=== PATIENT | male | born 1940 | race Caucasian/White ===

== ENCOUNTER 2018-04-25 14:54 | Inpatient (IN) | payer MEDICARE ==
--- NOTE | 2018-04-25 16:16 | CT ---
CT WITHOUT CONTRAST: HISTORY: Fall. Trauma. Pain. COMPARISON: None. TECHNIQUE: A noncontrast head CT is performed from the skull base to the skull vertex. FINDINGS: No parenchymal hemorrhage. No extraaxial hematoma. No midline shift. The basilar cisterns are winston nt. Age appropriate atrophy. Malacic change in the right occipital parietal region is noted. Chron ic small vessel ischemic changes of the white matter are identified. Adequate aeration of the sinuses and mastoid air cells. Intact calvarium. IMPRESSION: 1. No acute intracranial process. 2. No intracranial posttraumatic sequelae. POS: [facility]
--- NOTE | 2018-04-25 16:20 | CT ---
CT CERVICAL SPINE WITHOUT CONTRAST: HISTORY: Trauma. Fall. Posttraumatic pain. COMPARISON: None. TECHNIQUE: CT cervical spine is performed without contrast. FINDINGS: No craniocervical dissociation. The odontoid process is intact. Appropriate alignment of the latera l masses of C1 and C2. There is no pathologic fracture. There is a large, 1.5 x 1.8 cm lytic lesion occupying the left half of the C7 vertebral body. Additional smaller lucent foci are noted in the u pper thoracic spine. Refer to separate thoracic spine report for further details. Soft tissue neck structures, upper mediastinum, and lung apices are unremarkable. There are varying degrees of central canal stenosis and foraminal narrowing, on the basis of degenera tive change. Evaluation is limited by technique. IMPRESSION: 1. No cervical spine fracture. 2. Metastatic lesion involving the C7 vertebral body, as well as the upper thoracic vertebra. Refer to separate thoracic spine report for further details. POS: [facility]
--- NOTE | 2018-04-25 16:29 | CT ---
THORACIC SPINE CT NONCONTRAST: INDICATIONS: Post traumatic back pain. Fall. FINDINGS: At the C7 level, there is a large lytic lesion occupying the anterior half of the C7 vertebral body. There is additional multifocal lucency involving the thoracic spine vertebrae, the most dominant of which is located at the T8 vertebral body segment with numerous additional lytic foci, indicative of either a lytic metastatic process versus entities such as multiple myeloma. There is a lytic lesion involving the posterolateral right second rib. There is a punctate cortical lucency involving the po sterior right 11th rib. There are nonspecific patch opacities of the lungs, partially visualized. IMPRESSION: Findings which indicate a diffuse osseous metastatic process versus myeloma. Incidental note of thoracic adenopathy. This may also represent a neoplastic process. POS: [facility]
[2018-04-25 16:33] LABS: Hemoglobin 12.4 g/dL (14.0-18.0); Red Blood Cell (RBC) Count 3.43 mill/uL (4.70-6.10); White Blood Cell (WBC) Count 8.7 thou/uL (4.8-10.8)
[2018-04-25 16:37] LABS: INR-International Normal Ratio 1.2; PTT 29.8 SEC (22.9-36.1); Prothrombin Time 15.6 SEC (12.0-14.7)
[2018-04-25 16:46] LABS: #Lymphocytes 0.9 thou/uL (1.20-3.40); #Monocytes 0.9 thou/uL (0.11-0.59); #Neutrophils 6.9 thou/uL (1.40-6.50); %Basophils 0.1 % (0.0-1.0); %Eosinophils 0.3 % (0.0-10.0); %Monocytes 9.9 % (0.0-10.0); %Neutrophils 79.7 % (42.0-75.0); MDiff Complete? YES; Macrocytosis SLIGHT = 6-15 cells (100X) (0-5/hpf); Mean Corpuscular HGB CONC 33.5 g/dL (32.0-36.0); Mean Corpuscular Hemoglobin 36.1 pg (27.0-31.0); Mean Platelet Volume 10.2 fL (7.4-10.4); Ovalocytes SLIGHT = 2-5 cells (100X) (0-1/hpf); PLT Morphology Comment Appears Decreased; Platelet Count 104 thou/uL (130-400); RBC Distribution Width 13.8 % (11.5-14.5)
--- NOTE | 2018-04-25 16:48 | RAD ---
FRONTAL VIEW CHEST: INDICATIONS: Dyspnea. COMPARISON: 12/10/2013 FINDINGS: There is enlargement of the cardiac silhouette with engorged pulmonary vasculature and bilateral inte rstitial opacification of the perihilar regions. No significant effusion or discrete pneumothorax. Overlying artifacts limit visualization. There is vascular calcification. Stable chronic deformity of the left clavicle. IMPRESSION: Evidence to indicate congestive heart failure. Correlate clinically. Recommend imaging followup to confirm resolution. POS: [facility]
[2018-04-25 16:53] LABS: Anion Gap 14 mmol/L (10-20); BUN (Urea Nitrogen) 32 mg/dL (8.4-25.7); CK (CPK) 252 U/L (30-200); Calc. Creatinine Clearance 0 mL/min (70-130); Carbon Dioxide 26 mmol/L (23-31); Chloride 101 mmol/L (98-107); Estimated GFR-MDRD 25; Glucose 125 mg/dL (83-110); Sodium 137 mmol/L (136-145)
[2018-04-25 16:57] LABS: Calcium 16.7 mg/dL (7.8-10.44)
[2018-04-25] MEDS ORDERED: Ondansetron HCl/PF 4 MG/2 ML Vial IVP PRN (17:19)
[2018-04-25] MEDS ORDERED: Acetaminophen 325 MG TAB PO PRN (17:19)
[2018-04-25] MEDS ORDERED: Guaifenesin DM 100-10/5 ML UDCUP PO PRN (17:19)
[2018-04-25] MEDS ORDERED: HYDROcodone/Acetaminophen 5/325 mg Tablet PO PRN (17:19)
[2018-04-25 17:26] LABS: ALT (SGPT) 16 U/L (8-55); AST (SGOT) 23 U/L (5-34); Albumin 4.3 g/dL (3.4-4.8); Alkaline Phosphatase 63 U/L (40-150); Bilirubin, Direct 0.9 mg/dL (0.1-0.3); Bilirubin, Total 2.7 mg/dL (0.2-1.2); Protein, Total 6.9 g/dL (5.8-8.1)
[2018-04-25] MEDS ORDERED: traMADol HCl 50 MG TAB PO PRN (17:26)
[2018-04-25] MEDS ORDERED: Morphine 4 MG/ML VIAL SLOW IVP PRN (17:26)
[2018-04-25] MEDS ORDERED: Zoledronic Acid 4 MG in Sodium Chloride 0.9% 100 ML IVPB SCH (17:30)
[2018-04-25 18:07] LABS: Iron 56 ug/dL (65-175); Iron Binding Capacity, Total 235 mcg/dL (261-462)
[2018-04-25 18:15] LABS: ALT (SGPT) 16 U/L (8-55); AST (SGOT) 22 U/L (5-34); Albumin 4.1 g/dL (3.4-4.8); Alkaline Phosphatase 60 U/L (40-150); Anion Gap 12 mmol/L (10-20); BUN (Urea Nitrogen) 32 mg/dL (8.4-25.7); Bilirubin, Total 2.7 mg/dL (0.2-1.2); Calc. Creatinine Clearance 0 mL/min (70-130); Carbon Dioxide 29 mmol/L (23-31); Chloride 99 mmol/L (98-107); Estimated GFR-MDRD 25; Globulin 2.5 g/dL (2.4-3.5); Glucose 132 mg/dL (83-110); Iron 52 ug/dL (65-175); Iron Binding Capacity, Total 230 mcg/dL (261-462); Potassium 3.8 mmol/L (3.5-5.1); Protein, Total 6.6 g/dL (5.8-8.1); Sodium 136 mmol/L (136-145)
[2018-04-25 18:28] LABS: Calcium 16.5 mg/dL (7.8-10.44)
--- NOTE | 2018-04-25 18:31 | ULT ---
RENAL ULTRASOUND: HISTORY: Acute kidney insufficiency. Left CVA tenderness. COMPARISON: None. TECHNIQUE: Sagittal and transverse imaging of the kidneys is performed. FINDINGS: Bilaterally, no hydronephrosis. The left kidney has a normal cortical echotexture. There is renal c ortical thinning. The left kidney measures 10.5 x 5.7 x 4.9 cm. The right kidney has a normal cortical echotexture. There is mild renal cortical thinning. The righ t kidney measures 5.5 x 5 x 9.8 cm. The urinary bladder is unremarkable. Bilateral ureteral jets are identified. IMPRESSION: No hydronephrosis. POS: [facility]
[2018-04-25 18:50] LABS: Folate (Folic Acid) 8.4 ng/mL (7.0-31.4)
[2018-04-25] MEDS: Sodium Chloride 0.9% 1,000 ML IV SCH (22:05)
[2018-04-25] MEDS: Docusate 100 MG CAP PO SCH (22:06)
--- NOTE | 2018-04-26 00:01 | HP ---
REASON FOR ADMISSION: Acute kidney injury, hypercalcemia, dehydration, history of fall. HISTORY OF PRESENT ILLNESS: The patient gives history of falling backwards over the wall of his bathtub. He was very weak and could not get up. He, in fact, crawled every few inches on his back to reach the living room which is 15 feet from his bathroom for nearly 2 hours to call for help. He stays alone. The patient states he has had back pain for nearly 20 years or so, but this has been progressively getting worse from last two months. He had absolutely no strength to get up and was exhausted by the time EMS came. On arrival, patient has had multiple imaging studies done, all of which show lytic lesions in the bone. His creatinine is more than 2. He has no complaints of chest pain, no palpitation. No complaints of cough or expectoration. No prior history of cancer. The patient states that he did not lose consciousness. He is not clear how he fell backwards and thinks that the wall of his bathtub might have been too high for him to get out in the first place. PAST MEDICAL AND SURGICAL HISTORY: History of chronic atrial fibrillation, which is rate controlled and follows up with Dr. Hein, chronic venous stasis in both lower extremities, hypertension, cholecystectomy, left knee surgery with partial meniscus removal, has had left foot surgery. CURRENT MEDICATIONS: The patient does not recall his medications. He knows he takes total of 4 pills, 2 of which he does not know the reason why he is taking , one for hypertension, one for atrial fibrillation, and will try to obtain the same from his pharmacy. ALLERGIES: No known drug allergies. PERSONAL HISTORY: Does not abuse alcohol or drugs. No history of smoking. 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 He lives by himself. He has been ambulating with a cane or walker from last 2 months off and on. FAMILY HISTORY: Mother of stroke at the age of 80 years. Father at the age of 90 years from old age. Has two living sisters, living in [place]. The patient is not and has no kids. Power of fire boss is Ms. Laverne Robison that is the sister in [place]. CODE STATUS: FULL. REVIEW OF SYSTEMS: The following complete review of systems was negative, unless otherwise mentioned in the HPI or below: Constitutional: Weight loss or gain, ability to conduct usual activities. Skin: Rash, itching. Eyes: Double vision, pain. ENT/Mouth: Nose bleeding, neck stiffness, pain, tenderness. Cardiovascular: Palpitations, dyspnea on exertion, orthopnea. Respiratory: Shortness of breath, wheezing, cough, hemoptysis, fever or night sweats. Gastrointestinal: Poor appetite, abdominal pain, heartburn, nausea, vomiting, constipation, or diarrhea. Genitourinary: Urgency, frequency, dysuria, nocturia. Musculoskeletal: Pain, swelling. Neurologic/Psychiatric: Anxiety, depression. Allergy/Immunologic: Skin rash, bleeding tendency. PHYSICAL EXAMINATION: GENERAL: The patient is a 77-year-old male who is currently in moderate distress from pain. VITAL SIGNS: Blood pressure 174/68 on arrival, likely due to anxiety, the patient states he has never had his blood pressure though that high. Pulse 60 per minute, respiratory rate 18 per minute, temperature 97.8 degrees Fahrenheit , saturating 95% on room air. NECK: Supple. No elevated JVD. HEENT: Extraocular muscles are intact. Pupils are reacting to light. Oral cavity mucous membranes are dry. No exudates or congestion. CARDIOVASCULAR: S1, S2 heard, bradycardic with heart rate is trending down to 50s. RESPIRATORY: Air entry 1+ bilaterally. No rales or rhonchi. ABDOMEN: Soft, bowel sounds heard. Has mild tenderness in the left CVA angle. No rigidity or guarding. EXTREMITIES: Patient has chronic venous stasis in both lower extremities. His varicose veins seen, is 2+ peripheral edema. Peripheral pulses are 1+ bilateral. No ischemic ulcerations or gangrene. CENTRAL NERVOUS SYSTEM: No gross focal deficits seen. The patient moves all 4 extremities. PSYCHIATRIC: The patient's mood is euthymic. No hallucinations or delusions. LABORATORY AND X-RAY FINDINGS: White count of 8, H and H 12 and 37, platelet count 104,000. MCV is 108 with 79% neutrophils. PT/INR 15 and 1.2, PTT 29, serum bicarbonate 26, BUN 32, creatinine 2.4, glucose 125, calcium is 16.7. CK level is 252. CT thoracic spine done shows diffuse osseous metastatic process versus myeloma. He also has lytic lesions seen in the posterolateral right second rib. Chest x-ray done shows mild pulmonary vascular congestion. There is chronic deformity of the left clavicle. No acute infiltrate. CT brain without contrast done shows no acute intracranial process. CT cervical spine without contrast done shows no C-spine fracture, those metastatic lesion involving C7 vertebral body as well as upper thoracic vertebra. EKG done shows sinus rhythm at 60 beats per minute with poor R-wave progression. CLINICAL IMPRESSION AND PLAN: The patient will be admitted to telemetry for severe hypercalcemia likely due to multiple lytic lesions seen with unknown primary. He also has acute kidney injury likely due to myeloma. We will obtain protein and urine electrophoresis, aggressive hydration with close monitoring, not to volume overload. We will give him 1 dose of zoledronic acid for hypercalcemia. We will obtain flow cytometry vitamin B12 and folic acid for high MCV. Echo with 2D Doppler for LV function. Once his creatinine stabilizes, we will obtain CT of the chest, abdomen, and pelvis with contrast; for now, we will hold on to this until his renal function gets better. He will be on morphine p.r.n., Ultram, lidocaine patch. We will try to obtain his home medications for his atrial fibrillation, currently he is bradycardic and appears to be in sinus rhythm. We will obtain a free and total PSA levels as well. Ultrasound of the kidneys will be obtained as well to rule out any obstructive uropathy. He will be on normal saline at 150 mL per hour. We will continue to closely monitor him on medical floor. Power of fire boss is his sister who lives in [place] and her name is Ms. Laverne Robison, he will try to give us the number, patient states he has written down in a book at home. DANIELLA
[2018-04-26 04:53] LABS: #Lymphocytes 0.8 thou/uL (1.20-3.40); %Eosinophils 0.3 % (0.0-10.0); %Lymphocytes 9.1 % (21.0-51.0); %Monocytes 11.4 % (0.0-10.0); %Neutrophils 79.2 % (42.0-75.0); Hemoglobin 11.5 g/dL (14.0-18.0); Mean Corpuscular HGB CONC 34.9 g/dL (32.0-36.0); Mean Corpuscular Hemoglobin 37.7 pg (27.0-31.0); Mean Platelet Volume 10.6 fL (7.4-10.4); Platelet Count 91 thou/uL (130-400); RBC Distribution Width 13.5 % (11.5-14.5); Red Blood Cell (RBC) Count 3.05 mill/uL (4.70-6.10); White Blood Cell (WBC) Count 8.9 thou/uL (4.8-10.8)
[2018-04-26 04:59] LABS: ALT (SGPT) 15 U/L (8-55); AST (SGOT) 26 U/L (5-34); Albumin 3.7 g/dL (3.4-4.8); Alkaline Phosphatase 54 U/L (40-150); Anion Gap 14 mmol/L (10-20); BUN (Urea Nitrogen) 35 mg/dL (8.4-25.7); Bilirubin, Total 2.5 mg/dL (0.2-1.2); Calc. Creatinine Clearance 39 mL/min (70-130); Carbon Dioxide 23 mmol/L (23-31); Chloride 103 mmol/L (98-107); Estimated GFR-MDRD 25; Globulin 2.3 g/dL (2.4-3.5); Glucose 122 mg/dL (83-110); Sodium 136 mmol/L (136-145)
[2018-04-26 05:03] LABS: Calcium 15.4 mg/dL (7.8-10.44)
[2018-04-26] MEDS: Sodium Chloride 0.9% 1,000 ML IV SCH ×5 (05:28→21:22)
[2018-04-26] MEDS ORDERED: Sodium Chloride 0.9% 10 ML ONE (07:52)
[2018-04-26] MEDS ORDERED: Prevnar 13-Val Conj/PF 0.5 ML SYRINGE IM ONE (09:00)
[2018-04-26] MEDS: Famotidine 20 MG TAB PO SCH (10:12)
[2018-04-26] MEDS: hydrALAZINE 25 MG TAB PO SCH ×3 (10:14→21:22)
[2018-04-26] MEDS: Docusate 100 MG CAP PO SCH ×2 (10:14→21:21)
[2018-04-26] MEDS: Lidocaine 5% Patch TD SCH (10:15)
[2018-04-26] MEDS: Enoxaparin Sodium 30 MG/0.3 ML SYRINGE SC SCH (10:17)
--- NOTE | 2018-04-26 10:18 | PDOC.PN ---
- Subjective Encounter Start Date: 04/26/18 Encounter Start Time: 07:00 Subjective: mild sob, no chest pain -: not fully oriented this am - Objective Resuscitation Status: Resuscitation Status FULL:Full Resuscitation MAR Reviewed: Yes Vital Signs & Weight: Vital Signs (12 hours) Temp Pulse Resp BP Pulse Ox 04/26/18 08:38 98.0 F 58 L 22 H 161/74 H 100 I&O: 04/25/18 04/26/18 04/27/18 06:59 06:59 06:59 Intake Total 250 Output Total 450 Balance -200 Result Diagrams: 04/26/18 04:12 04/26/18 04:12 Phys Exam - Physical Examination HEENT: PERRLA, moist MMs Neck: no JVD, supple Respiratory: no wheezing rales + Cardiovascular: RRR, no significant murmur Gastrointestinal: soft, non-tender, positive bowel sounds Musculoskeletal: pulses present, edema present Neurological: non-focal, moves all 4 limbs Psychiatric: normal affect Dx/Plan (1) Hypercalcemia Code(s): E83.52 - HYPERCALCEMIA Status: Acute Comment: sec to lytic bone lesions (2) REBECA (acute kidney injury) Code(s): N17.9 - ACUTE KIDNEY FAILURE, UNSPECIFIED Status: Acute (3) Lytic bone lesions on xray Code(s): M89.9 - DISORDER OF BONE, UNSPECIFIED Status: Acute (4) HTN (hypertension) Code(s): I10 - ESSENTIAL (PRIMARY) HYPERTENSION Status: Chronic Qualifiers: Hypertension type: essential hypertension Qualified Code(s): I10 - Essential (primary) hypertension (5) Chronic venous stasis Code(s): I87.8 - OTHER SPECIFIED DISORDERS OF VEINS Status: Chronic (6) h/o afib Status: Chronic (7) Cancer with unknown primary site Code(s): C80.1 - MALIGNANT (PRIMARY) NEOPLASM, UNSPECIFIED Status: Acute Comment: with lytic bone lesions, ?multiple myeloma - Plan await spep, upep, flow cytometry -: CT abd pelvis when creatinine improves -: recieved 1 dose of zoledronic acid -: renal consult, lasix q12h to reduce yair levels -: continue iv fluids, watch for gross overload * . will need to get his sisters phone # in [place] from his home, not sure how we can obtain this. He has written this down in his phone book. to mobilize with PT as tolerated, will need rehab for dc plan when w/u for lytic lesions is complete PSA levels and LDH levels are pending. give additional lasix x1 dose now. has had 2 sec pauses on telemetry due to hypercalcemia?. Review of Systems - Medications/Allergies Allergies/Adverse Reactions: Allergies Allergy/AdvReac Type Severity Reaction Status Date / Time No Known Drug Allergies Allergy Verified 04/25/18 20:07 Medications: Current Medications Acetaminophen (Tylenol) 650 mg PO Q4H PRN PRN Reason: Headache/Fever or Pain Hydrocodone Bitart/Acetaminophen ([place] 5/325) 1 tab PO Q4H PRN PRN Reason: Moderate Pain (4-6) Docusate Sodium (Colace) 100 mg PO BID [facility] Last Admin: 04/26/18 10:14 Dose: Not Given Enoxaparin Sodium (Lovenox) 30 mg SC 0900 [facility] Famotidine (Pepcid) 20 mg PO DAILY [facility] Last Admin: 04/26/18 10:12 Dose: 20 mg Furosemide (Lasix) 20 mg SLOW IVP 0600,1400 [facility] Guaifenesin/Dextromethorphan (Robitussin Dm) 15 ml PO Q4H PRN PRN Reason: Cough Hydralazine HCl (Apresoline) 25 mg PO TID [facility] Last Admin: 04/26/18 10:14 Dose: 25 mg Sodium Chloride (Normal Saline 0.9%) 1,000 mls @ 150 mls/hr IV .Q6H40M [facility] Last Admin: 04/26/18 05:33 Dose: 1,000 mls Lidocaine (Lidoderm 5% Patch) 1 patch TD DAILY [facility] Last Admin: 04/26/18 10:15 Dose: 1 patch Morphine Sulfate (Morphine) 2 mg SLOW IVP Q4H PRN PRN Reason: Chest Pain/BP Elevations Ondansetron HCl (Zofran) 4 mg IVP Q6H PRN PRN Reason: Nausea/Vomiting Tramadol HCl (Ultram) 50 mg PO Q6H PRN PRN Reason: Moderate Pain (4-6)
[2018-04-26] MEDS ORDERED: Furosemide 40 MG/4 ML VIAL SLOW IVP SCH (10:30)
[2018-04-26] MEDS ORDERED: Furosemide 20 MG/2 ML VIAL SLOW IVP SCH (14:00)
[2018-04-26 16:25] LABS: Bilirubin Negative (Negative); Blood, Urine Trace (Negative); Clarity CLEAR (Clear); Glucose, Urine (Dipstick) Negative (Negative); Leukocyte Negative (Negative); Nitrite Negative (Negative); Protein, Urine (Dipstick) Negative (Neg-Trace); Specific Gravity, Urine 1.009 (1.002-1.036); Urobilinogen 0.2 mg/dL (0.2-1.0)
[2018-04-26 16:27] LABS: Bacteria/HPF None Seen HPF (None Seen); Hyaline Casts/LPF 0-3 HYALINE CAST LPF (0-3 Hyaline); RBC/HPF 0-3 HPF (0-3); Squamous Epithelial 0-3 HPF (0-3); WBC/HPF 0-3 HPF (0-3)
--- NOTE | 2018-04-26 20:33 | RAD ---
FRONTAL VIEW CHEST: Comparison: 04-25-18 History: Aspiration pneumonia. FINDINGS: Cardiac silhouette is enlarged. There is bilateral vascular congestion and interstitial prominence of each lung seen. Artifact overlies the chest limiting visualization. IMPRESSION: 1. Grossly stable chest with evidence to indicate decompensated CHF. 2. No interval, focal consolidation identified. POS: [facility]
--- NOTE | 2018-04-26 23:05 | CON ---
DATE OF CONSULTATION: 04/26/2018 CONSULTING PHYSICIAN: Margo Garcia M.D. REQUESTING PHYSICIAN: Oscar Zelaya M.D. REASON FOR CONSULTATION: Severe hypercalcemia and acute kidney injury. IMPRESSION: 1. Severe hypercalcemia. This is likely due to malignant process. 2. Acute kidney injury. This is likely related to problem #1 above in the context of hyperfiltratio n/dehydration that normally occurs with hypercalcemia as well as possibility of finding the first zeus roscopic nephrocalcinosis. 3. Peripheral edema with possibility of congestive heart failure. PLAN: 1. The patient to be on normal saline rehydration; however, in this patient with questionable cardia c status. We will also benefit from a loop diuretic, this way, the hypercalcemia can be handled both in the way of IV fluid and in the way of loop diuresis. 2. Given the degree of hypercalcemia in this patient. The patient will require somewhat anti-hyperc alcemic agents including, but not limited to, calcitonin and bisphosphonates. 3. Further management will be dependent on the clinical course, but avoid potentially nephrotoxic ag ents at this point. If he is not absolutely indicated, we will recommend avoiding contrast at this p oint. 4. We will increase the furosemide dose to 40 mg twice a day. 5. Check the PSA level in this patient to evaluate for any potential post-prostate carcinoma. HISTORY OF PRESENT ILLNESS: History is that of a 77-year-old, retired [place] [employer] who p resented here due to progressively worsening weakness to the point that the patient fell down in the bathroom and crawled for about 2 hours to get to the living room to call for help. EMS found this pa tient very exhausted and took him to the hospital where his creatinine was noted to be above 2. The patient also noted with severe elevated calcium at above 16, says that of these findings, decision hurtado s been taken to involve Renal in the management of this case. The patient currently on IV fluid. De nies any new complaint except having back pain for the past 20 years. Initial imaging studies highly suspicious for malignant process anywhere of multiple osseous metastatic lesions. PAST MEDICAL HISTORY: Significant for atrial fibrillation, hypertension, status post cholecystectomy . MEDICATIONS: Reviewed and as documented on [employer]. ALLERGIES: No known drug allergy. 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 Denies alcohol, tobacco or illicit drug us e. The patient lives alone. The patient is with no kids. FAMILY HISTORY: Significant for CVA in the mother at the age of 80 when she . REVIEW OF SYSTEMS: As documented in the body of the history. All the other systems were reviewed an d found not to be significantly related to presenting illness. LABORATORY INVESTIGATION: Showed hemoglobin of 11.5, platelet 91,000. Chemistry showed a creatinine of 2.54, BUN of 32.8 with a calcium of 16.5. PHYSICAL EXAMINATION: GENERAL: The patient was found to be ill-looking, occasionally falling asleep in between discussion and noted with the following vital signs. VITAL SIGNS: Afebrile with temperature 97.9, pulse 60, blood pressure 177/84, respiratory rate of 20 , O2 sat of 99% on 2 liters. HEENT: Remarkable for dry mucosa. CARDIOVASCULAR SYSTEM: First and second heart sounds were heard. RESPIRATORY SYSTEM: Clear to auscultation. DIGESTIVE SYSTEM: Revealed an obese abdomen. EXTREMITIES: Showed 2 to 3+ bilateral lower extremity edema. SKIN: No new gross rash. LYMPHATICS: No peripheral lymphadenopathy. SUMMARY: A 77-year-old gentleman who presented here with severe hypercalcemia. Thank you for this consultation. We will follow with you.
[2018-04-27] MEDS: Sodium Chloride 0.9% 1,000 ML IV SCH ×3 (03:06→17:00)
[2018-04-27] MEDS: Furosemide 40 MG/4 ML VIAL SLOW IVP SCH ×2 (05:34→13:37)
[2018-04-27] MEDS ORDERED: Zoledronic Acid 4 MG in Sodium Chloride 0.9% 100 ML IVPB SCH (09:00)
[2018-04-27] MEDS: hydrALAZINE 25 MG TAB PO SCH ×3 (09:34→20:55)
[2018-04-27] MEDS: Famotidine 20 MG TAB PO SCH (09:36)
[2018-04-27] MEDS: Docusate 100 MG CAP PO SCH ×2 (09:36→20:56)
[2018-04-27] MEDS: Lidocaine 5% Patch TD SCH (09:38)
[2018-04-27 09:53] LABS: Anion Gap 12 mmol/L (10-20); BUN (Urea Nitrogen) 47 mg/dL (8.4-25.7); Calc. Creatinine Clearance 31 mL/min (70-130); Carbon Dioxide 25 mmol/L (23-31); Chloride 101 mmol/L (98-107); Estimated GFR-MDRD 19; Glucose 127 mg/dL (83-110); Potassium 3.2 mmol/L (3.5-5.1); Sodium 135 mmol/L (136-145)
--- NOTE | 2018-04-27 10:31 | PDOC.PN ---
- Subjective Encounter Start Date: 04/27/18 Encounter Start Time: 10:29 Patient seen and examined, states he feels a bit better today, per night nursing staff the patient was a bit confused, today the patient states he doesn' t feel confused but is very tired. No new issues or complaints, all questions answered. - Objective Resuscitation Status: Resuscitation Status FULL:Full Resuscitation Vital Signs & Weight: Vital Signs (12 hours) Temp Pulse Resp BP BP Pulse Ox 04/27/18 09:34 60 138/65 04/27/18 07:05 99.2 F 60 22 H 163/73 H 95 04/27/18 03:37 99.9 F H 61 24 H 160/88 H 95 I&O: 04/26/18 04/27/18 04/28/18 06:59 06:59 06:59 Intake Total 250 2520 Output Total 450 2950 Balance -200 -430 Result Diagrams: 04/26/18 04:12 04/27/18 08:58 Phys Exam - Physical Examination Constitutional: NAD HEENT: PERRLA, moist MMs, sclera anicteric, oral pharynx no lesions Neck: no nodes, no JVD, supple, full ROM Respiratory: no wheezing, no rales, no rhonchi Cardiovascular: RRR, no rub faint murmur Gastrointestinal: soft, non-tender, no distention, positive bowel sounds Musculoskeletal: pulses present, edema present (2+ B/L LE) Neurological: non-focal, normal sensation Psychiatric: normal affect, A&O x 3 Dx/Plan (1) REBECA (acute kidney injury) Code(s): N17.9 - ACUTE KIDNEY FAILURE, UNSPECIFIED Status: Acute (2) Cancer with unknown primary site Code(s): C80.1 - MALIGNANT (PRIMARY) NEOPLASM, UNSPECIFIED Status: Acute Comment: with lytic bone lesions, ?multiple myeloma (3) Hypercalcemia Code(s): E83.52 - HYPERCALCEMIA Status: Acute Comment: sec to lytic bone lesions (4) Lytic bone lesions on xray Code(s): M89.9 - DISORDER OF BONE, UNSPECIFIED Status: Acute (5) Chronic venous stasis Code(s): I87.8 - OTHER SPECIFIED DISORDERS OF VEINS Status: Chronic (6) HTN (hypertension) Code(s): I10 - ESSENTIAL (PRIMARY) HYPERTENSION Status: Chronic Qualifiers: Hypertension type: essential hypertension Qualified Code(s): I10 - Essential (primary) hypertension (7) h/o afib Status: Chronic - Plan * consult to oncology for now * will give zolidronic acid for hypercalcemia * repeat CBC in PM * DC lovenox and change to heparin, given renal injury * no uremic symptoms for now, renal also following * high probability of multiple myeloma with myeloma kidney, SPEP/UPEP pending * K replaced * cont w/ hydration and lasix for now, echo has EF 55% * patient's family apparently all lives in [place] and he's the only one who lives here, no immediate relatives available * continue with current plan of care for now * case and plan d/w patient at length, he understands and agrees with this plan
[2018-04-27 11:05] LABS: Actual Bicarbonate (HCO3a) 25.3 mEq/L (22-26); Base Excess (BEa) 2.6 mEq/L (0 (+/-) 2.5); Hematocrit-ABG 31.2 % (42.0-52.0); Hemoglobin (Hb) 10.1 g/dL (14.0-18.0); O2 Tension (PaO2) 86.6 mmHg (80.0-100.0); pH, Arterial 7.52 (7.35-7.45)
[2018-04-27 11:06] LABS: Calcium, Ionized 1.7 mmol/L (1.12-1.30); Puncture Site RRA
[2018-04-27 11:44] LABS: Anisocytosis SLIGHT = 6-15 cells (100X) (0-5/hpf); Band 16 % (5-11); Hemoglobin 10.8 g/dL (14.0-18.0); Large Platelets MODERATE; Lymphocytes 6 % (21-51); MDiff Complete? YES; Mean Corpuscular HGB CONC 34.6 g/dL (32.0-36.0); Mean Corpuscular Hemoglobin 37.1 pg (27.0-31.0); Mean Platelet Volume 10.9 fL (7.4-10.4); Monocytes 5 % (0-10); Neutrophil 71 % (42-75); PLT Morphology Comment Appears Decreased; Platelet Count 86 thou/uL (130-400); RBC Distribution Width 13.8 % (11.5-14.5); Reactive Lymphocytes 2 % (0-10); White Blood Cell (WBC) Count 8.2 thou/uL (4.8-10.8)
[2018-04-27] MEDS: Enoxaparin Sodium 30 MG/0.3 ML SYRINGE SC SCH (11:56)
[2018-04-27 12:10] LABS: Troponin I 0.664 ng/mL (< 0.028)
--- NOTE | 2018-04-27 14:16 | PDOC.EVN ---
Event Note - Event Note Event Note: Code green called due to bradycardia. Given patient's worsening renal function, bradycardia and overall functional decline, will move patient to ICU for now. Will obtain ABG, troponins, CKMB and EKG. First set of troponin 0.66, will obtain repeat at 10pm, maybe slightly elevated due to worsening renal function, if levels continue to rise will consult cardio and start ACS treatment for now. Will also consult oncology as patient is very high risk for multiple myeloma. Plan d/w patient at length when he arrived to the ICU in C7, he understands and agrees with this plan
--- NOTE | 2018-04-27 14:24 | CON ---
DATE OF CONSULTATION: 04/27/2018 REASON FOR CONSULTATION: Hypercalcemia of malignancy. 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 He denies pain, anorexia, w eight loss, nausea, vomiting, or shortness of breath. There is no prior history of malignancy. Eval uation which led to admission included a CBC which showed white blood cell count 8.7, hemoglobin 12.4 , MCV 108, and platelet count 104,000. The white cell differential was normal. Chemistries showed a creatinine of 2.54, increased somewhat from mild to moderate renal insufficiency noted in the past. Electrolytes were normal. The calcium was 16.5 with an albumin of 4.1. The total bilirubin was 2.7 . Transaminases were normal. Total protein is normal and the globulin is actually low at 2.3. A ur inalysis was normal with no proteinuria. Because of the hypercalcemia, the patient underwent imaging studies to include cervical and thoracic spine, MRI procedures which showed lytic lesions consistent with a malignancy, either metastatic or myeloma. A chest x-ray has shown bilateral pulmonary vascul ar engorgement consistent with congestive heart failure. However, an echocardiogram shows normal lef t ventricular function, but with severe tricuspid insufficiency. He has been treated with cautious f luids and received Zometa this morning. The calcium has decreased to about 13. At this point, I am asked to see the patient to provide further management recommendations. ALLERGIES: None. MEDICATIONS: Pepcid, Lasix, hydralazine, and tramadol. PAST MEDICAL HISTORY: The patient has a history of atrial fibrillation treated by Dr. Hein. The medical regimen he has been treated with unavailable for review at this time. He has not been on re cent anticoagulation. There is a history of chronic venous stasis in the lower extremities and hyper tension. PAST SURGICAL HISTORY: This patient has undergone prior cholecystectomy, and knee surgery. SOCIAL HISTORY: He does not use alcohol or drugs. He does not have a smoking history according to t chart review. He lives alone. He is unmarried and has no children. He has two living sisters in [place], one of whom is his power of airport manager. FAMILY HISTORY: The patient's mother of stroke at age 80. Father at age 90. REVIEW OF SYSTEMS: Except as mentioned in the history of present illness, he denies significant card iopulmonary, GI, , musculoskeletal, or neurological complaints. PHYSICAL EXAMINATION: VITAL SIGNS: Heart rate 60, respiratory rate 17, blood pressure 125/53, temperature 98.5. GENERAL: The patient is a well-developed and well-nourished man in no acute distress. He is somewha t slow in response to questioning. However, he is oriented to time and place. Upon entering the [facility], he was lying at about 30 degrees and comfortable without dyspnea, sleeping. HEENT: The extraocular movements are intact. Pupils equal, round, and reactive to light. NECK: Supple. LUNGS: Clear. CARDIOVASCULAR: Rhythm is irregularly irregular with a controlled rate. No murmur or gallop. ABDOMEN: No tenderness, organomegaly, masses, bruits or ascites. The patient is quite obese. EXTREMITIES: There is brawny bilateral lower extremity edema with chronic stasis changes. SKIN: Hyperpigmentation. LYMPH: No adenopathy. MUSCULOSKELETAL: No active arthritis. NEUROLOGIC: No focal findings. LABORATORY AND X-RAY FINDINGS: See history of present illness. IMAGING: See history of present illness. IMPRESSION: 1. Metastatic malignancy involving bone. I doubt this is myeloma given the normal globulin level an d negative protein on spot urine. 2. Hypercalcemia of malignancy. 3. Chronic atrial fibrillation. 4. Chronic lower extremity venous stasis. RECOMMENDATIONS: I would continue cautious diuresis. Zometa was given today at full dose. I would hold further Zometa for now. I would suggest a noncontrast CT scan of the chest. Given the patient' s elevated creatinine. The T-spine MRI did suggest mediastinal adenopathy which could be indicative of either bronchogenic carcinoma or lymphoma. When the above studies are available, I will discuss d iagnostic biopsy with Interventional Radiology. Thanks very much for allowing me to provide my recommendations.
[2018-04-27 15:45] LABS: Anion Gap 11 mmol/L (10-20); BUN (Urea Nitrogen) 50 mg/dL (8.4-25.7); Calc. Creatinine Clearance 29 mL/min (70-130); Carbon Dioxide 29 mmol/L (23-31); Chloride 100 mmol/L (98-107); Estimated GFR-MDRD 18; Glucose 106 mg/dL (83-110); Potassium 3.1 mmol/L (3.5-5.1); Sodium 137 mmol/L (136-145)
[2018-04-27 15:48] LABS: Calcium 12.7 mg/dL (7.8-10.44)
--- NOTE | 2018-04-27 16:32 | CT ---
CT CHEST WITHOUT CONTRAST: HISTORY: Hypercalcemia. Mediastinal adenopathy. Metastatic cancer to the spine. Shortness of breath. COMPARISON: None. CORRELATION: CT thoracic spine from 04/25/2018. TECHNIQUE: A noncontrast chest CT is performed in the axial plane. Coronal reformatted images are submitted for interpretation. FINDINGS: Limited evaluation of the mediastinal structures due to lack of IV contrast. Nonenlarged right parat erik lymph node, measuring 1.5 x 1.1 cm. Additional nonenlarged prevascular lymph nodes are noted . No evidence of lymphadenopathy. No significant hematoma or masses in the mediastinum. The heart is enlarged. There are coronary calcifications. No significant pericardial fluid. The visualized a adela and pulmonary vessels are grossly unremarkable. Limited evaluation of the solid organs by lack of IV contrast. An 8 mm hypodensity in the hepatic do me. Atrophy of the pancreas is noted. The spleen and adrenal glands are unremarkable. The gallblad aye is surgically absent. The upper mesentery is unremarkable. There are small bilateral effusions. Adjacent lung consolidation is favored to be due to atelectasis . Pneumonia cannot be excluded. Additional patchy ground glass and linear opacities may represent e eusebio. No suspicious masses. No pneumothorax. The trachea and central bronchi are patent. There is multifocal lucency involving the thoracic spine, unchanged from the prior examination. Ther e is evidence for multifocal metastases. Irregularities involving the left and right ribs. Findings are worrisome for possible nondisplaced pathologic fractures. These lucencies are noted in multiple ribs. IMPRESSION: 1. Osseous metastases involving the spine. 2. Multifocal pathologic rib fractures are suspected. 3. Cardiomegaly. 4. Lung parenchymal opacification, suggesting possible congestive heart failure. There are bilatera l effusions with adjacent consolidation, favored to be due to atelectasis. POS: [facility]
[2018-04-27] MEDS: Potassium Chloride 20 MEQ TAB PO SCH (16:59)
--- NOTE | 2018-04-27 18:17 | PRG ---
DATE OF SERVICE: 04/27/2018 SUBJECTIVE: The patient seen and examined, verify lethargic. OBJECTIVE: VITAL SIGNS: Pulse of 42-57, respiratory 18, O2 saturation 98% on 4 liters, blood pressure 125/53. HEENT: Unremarkable. CARDIOVASCULAR: First and second heart sounds were heard. RESPIRATORY SYSTEM: Reveals some transmitted sounds. ABDOMEN: Revealed an obese abdomen. EXTREMITIES: Shows no peripheral edema. LABORATORY INVESTIGATIONS: Showed a creatinine of 3.42, BUN of 50, potassium 3.1, calcium of 10.0. IMPRESSION: 1. Severe hypercalcemia in the context of possible malignancy. 2. Acute on chronic kidney disease, likely related to the hypercalcemia. 3. Hypokalemia. PLAN: 1. We will continue gentle diuresis. 2. Patient has already received Zometa to address the hypercalcemia. 3. Further management to be dependent on the clinical course. We will recommend to continue to avoi d exposure to contrast as patient's kidneys is really struggling at this point.
[2018-04-27] MEDS: Heparin 5,000 UNITS/ML VIAL SC SCH (20:56)
[2018-04-27] MEDS ORDERED: Sodium Chloride 0.9% 1,000 ML IV SCH (21:15)
[2018-04-27 21:35] LABS: Critical Call Chem Troponin I RESULT DECREASING; Troponin I 0.498 ng/mL (< 0.028)
--- NOTE | 2018-04-27 22:26 | EKG ---
Test Reason : CODE GREEN Blood Pressure : / mmHG Vent. Rate : 060 BPM Atrial Rate : 060 BPM P-R Int : 238 ms QRS Dur : 110 ms QT Int : 476 ms P-R-T Axes : 028 063 -84 degrees QTc Int : 476 ms Sinus rhythm with 1st degree A-V block with Premature supraventricular complexes Prolonged QT Abnormal ECG When compared with ECG of 25-APR-2018 15:01, (Unconfirmed) Sinus rhythm has replaced Junctional rhythm T wave inversion now evident in Inferior leads T wave inversion now evident in Anterior leads Confirmed by Casimiro MILES ([id number]) on 04/27/2018 10:25:58 PM Referred By: GERRY Confirmed By:Casimiro MILES
[2018-04-28] MEDS: Furosemide 40 MG/4 ML VIAL SLOW IVP SCH ×2 (05:23→15:06)
[2018-04-28 05:53] LABS: Anion Gap 11 mmol/L (10-20); BUN (Urea Nitrogen) 56 mg/dL (8.4-25.7); Calc. Creatinine Clearance 30 mL/min (70-130); Calcium 11.2 mg/dL (7.8-10.44); Carbon Dioxide 24 mmol/L (23-31); Chloride 104 mmol/L (98-107); Estimated GFR-MDRD 18; Glucose 97 mg/dL (83-110); Sodium 136 mmol/L (136-145)
[2018-04-28 06:11] LABS: Potassium 2.9 mmol/L (3.5-5.1)
[2018-04-28] MEDS ORDERED: Potassium Chloride 20 MEQ TAB PO SCH (06:30)
[2018-04-28] MEDS: Famotidine 20 MG TAB PO SCH (09:48)
[2018-04-28] MEDS: hydrALAZINE 25 MG TAB PO SCH ×3 (09:49→20:47)
[2018-04-28] MEDS: Docusate 100 MG CAP PO SCH ×2 (09:49→20:47)
[2018-04-28] MEDS: Heparin 5,000 UNITS/ML VIAL SC SCH ×2 (09:49→20:47)
[2018-04-28] MEDS: Potassium Chloride 20 MEQ TAB PO SCH ×2 (09:50→18:03)
[2018-04-28] MEDS: Lidocaine 5% Patch TD SCH (09:50)
[2018-04-28] MEDS: Potassium Chloride 40 MEQ in Sodium Chloride 0.45% 1,000 ML IV SCH ×2 (11:07→20:48)
--- NOTE | 2018-04-28 11:39 | PRG ---
DATE OF SERVICE: 04/28/2018 The patient was seen and examined in the ICU. He seems to be much more alert, feeling better. PHYSICAL EXAMINATION: VITAL SIGNS: Blood pressure 90/50, pulse 61, O2 saturation 97%. HEENT: Unremarkable. CARDIOVASCULAR: First and second heart sounds were heard. LUNGS: Clear to auscultation. ABDOMEN: Digestive system revealed an obese abdomen. EXTREMITIES: Showed peripheral edema. LABORATORY: Calcium of 11.2, creatinine 3.31, potassium 2.9. IMPRESSION: 1. Hypercalcemia, likely of malignancy, improving. 2. Hypokalemia. 3. Chronic kidney disease. PLAN: 1. We will continue current renal supportive measures. 2. Replete potassium. 3. Further management to be dependent on the clinical course.
--- NOTE | 2018-04-28 12:58 | PDOC.PN ---
- Subjective Encounter Start Date: 04/28/18 Encounter Start Time: 12:57 Patient seen and examined, states he's feeling better today, no new issues or complaints, all questions answered. - Objective Resuscitation Status: Resuscitation Status FULL:Full Resuscitation Vital Signs & Weight: Vital Signs (12 hours) Temp Pulse Resp BP Pulse Ox 04/28/18 12:00 97.6 F 04/28/18 09:49 61 119/50 L 04/28/18 08:00 97.5 F L 61 20 96 04/28/18 04:00 98.0 F Most Recent Monitor Data Heart Rate from ECG 56 NIBP 117/43 NIBP BP-Mean 64 Respiration from ECG 22 SpO2 99 I&O: 04/27/18 04/28/18 04/29/18 06:59 06:59 06:59 Intake Total 2520 2401 120 Output Total 2950 3730 1050 Balance -430 -1329 -930 Result Diagrams: 04/27/18 08:58 04/28/18 05:20 Phys Exam - Physical Examination Constitutional: NAD HEENT: PERRLA, moist MMs, sclera anicteric, TM's clear Neck: no nodes, no JVD, supple, full ROM Respiratory: no wheezing, no rales, no rhonchi Cardiovascular: no significant murmur, no rub bradycardic Gastrointestinal: soft, non-tender, no distention, positive bowel sounds Musculoskeletal: pulses present, edema present (1+ B/L LE) Neurological: non-focal, normal sensation Psychiatric: normal affect, A&O x 3 Skin: no rash, normal turgor Dx/Plan (1) REBECA (acute kidney injury) Code(s): N17.9 - ACUTE KIDNEY FAILURE, UNSPECIFIED Status: Acute (2) Cancer with unknown primary site Code(s): C80.1 - MALIGNANT (PRIMARY) NEOPLASM, UNSPECIFIED Status: Acute Comment: with lytic bone lesions, ?multiple myeloma (3) Hypercalcemia Code(s): E83.52 - HYPERCALCEMIA Status: Acute Comment: sec to lytic bone lesions (4) Lytic bone lesions on xray Code(s): M89.9 - DISORDER OF BONE, UNSPECIFIED Status: Acute (5) Chronic venous stasis Code(s): I87.8 - OTHER SPECIFIED DISORDERS OF VEINS Status: Chronic (6) HTN (hypertension) Code(s): I10 - ESSENTIAL (PRIMARY) HYPERTENSION Status: Chronic Qualifiers: Hypertension type: essential hypertension Qualified Code(s): I10 - Essential (primary) hypertension (7) h/o afib Status: Chronic - Plan * Ca levels normalized, will hold off any further medications to reduce * SPEP/UPEP pending, probability of myeloma low per oncology * BP stable * HR stable * can likely move out of IMCU to telemetry if ok with CCU team * continue current plan of care for now and monitor Ca levels * case and plan d/w patient at length, he understands and agrees with this plan
--- NOTE | 2018-04-28 14:40 | CON ---
DATE OF CONSULTATION: 04/28/2018 HISTORY OF PRESENT ILLNESS: The patient is an unfortunate 77-year-old gentleman who presents with back discomfort and was noted to have a slow heart rate. The patient has a previous history of cardiomyopathy. He was seen initially in 2005 and underwent a cardiac catheterization. He was found to have a severe decrease in left ventricular systolic function with normal coronary arteries. The patient has subsequently been on medical therapy. He also has a history of paroxysmal atrial fibrillation, and has been on Xarelto. The patient recently underwent a PET scan which revealed him to have left ventricular ejection fraction of 45% with no evidence of ischemia. The patient was in usual state of health when he presented with severe back discomfort and was noted to have a slow heart rate. He patient denies having any syncope or lightheadedness. PAST MEDICAL HISTORY: 1. Cardiomyopathy. 2. Hypertension. 3. Dyslipidemia. 4. History of atrial fibrillation. PAST SURGICAL HISTORY: Cholecystectomy and knee surgery. SOCIAL HISTORY: Nonsmoker. CURRENT MEDICATIONS: Benazepril 40 daily, Xarelto 20 daily, Lipitor 20 daily, and Toprol 100 XL p.o. b.i.d. SOCIAL HISTORY: Nonsmoker. PHYSICAL EXAMINATION: GENERAL: This is an elderly gentleman in mild distress. VITAL SIGNS: Blood pressure 117/43. NECK: Showed no jugular venous distention. LUNGS: Clear to auscultation. HEART: Regular rate and rhythm, normal S1, S2. ABDOMEN: Distended. EXTREMITIES: Showed severe bilateral edema. LABORATORY DATA: White blood cell count 8.2, hemoglobin 10.8, hematocrit 31.1, and his platelets were 86. His sodium was 136, potassium 2.9, chloride 104, bicarbonate 24, BUN 56, creatinine 3.3, troponin 0.498. His EKG revealed an ectopic atrial rhythm with a T-wave abnormality suggestive of anterior ischemia. IMPRESSION: 1. Bradycardia. 2. History of atrial fibrillation. 3. Metastatic carcinoma. 4. Hypertension. 5. Renal insufficiency. This unfortunate gentleman has just been diagnosed with metastatic carcinoma. He has marked bradycardia. His beta tonie has been withheld. The patient is on subcutaneous heparin. We will monitor to see if the patient goes back in atrial fibrillation. The patient's prognosis is guarded. Critical care note time is 30 minutes. [facility]
--- NOTE | 2018-04-28 16:50 | CON ---
DATE OF CONSULTATION: 04/28/2018 HISTORY OF PRESENT ILLNESS: Mr. Gastelum is a very pleasant gentleman who was admitted on 04/25/2018. He had bradycardia yesterday, was transferred into the Critical Care Unit. Oncology was consulted because of lytic lesions on the spine. PAST MEDICAL HISTORY: Remarkable for, 1. Atrial fibrillation. 2. History of hypertension. 3. History of cholecystectomy. 4. History of knee surgery in the past. SOCIAL HISTORY: Nonsmoker, nondrinker. FAMILY HISTORY: He has no family in the area. He has 2 sisters in [place]. Family history is negative for lung disease in early age. Positive for vascular disease. REVIEW OF SYSTEMS: Ten points otherwise negative. 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 PHYSICAL EXAMINATION: GENERAL: He is in no distress VITAL SIGNS: Blood pressure 121/47, heart rate 56, respiratory rate is 21, oximetry is 93. HEENT: Pupils are equal. Sclerae is anicteric. NECK: Supple. I did not palpate any lymphadenopathy. LUNGS: Clear. HEART: Regular rhythm, no S3. ABDOMEN: Soft and nontender. EXTREMITIES: Without clubbing, cyanosis, or edema. LABORATORY DATA: He has had a cervical and thoracic spine imaging showing lytic lesions. He has had a brain CT that was done without contrast, so it really does not rule out metastatic disease to the brain. The chest radiograph showing no pulmonary parenchymal masses. He has a chest CT showing small mediastinal lymph nodes, but no obvious chest mass. He is in the Critical Care Unit because of transient bradycardia. IMPRESSION: Metastatic disease of unknown primary. I will have a bone marrow biopsy ordered to see if there is evidence of myeloma on bone marrow. I will be happy to follow with the other physicians caring for him. Cardiology has been consulted for the bradycardia. This is a 70 minute consult with greater keena 50% of the time spent on the unit with coordination of care. DANIELLA
[2018-04-28 17:12] LABS: A/G Ratio 1.4 (0.7-1.7); Albumin 3.4 g/dL (2.9-4.4); Alpha 1 0.3 g/dL (0.0-0.4); Alpha 2 0.9 g/dL (0.4-1.0); Beta 0.9 g/dL (0.7-1.3); Gamma 0.5 g/dL (0.4-1.8); Globulin, Total 2.5 g/dL (2.2-3.9); M-Spike Not Observed g/dL (Not Observed)
--- NOTE | 2018-04-28 23:53 | EKG ---
Test Reason : Blood Pressure : / mmHG Vent. Rate : 060 BPM Atrial Rate : 060 BPM P-R Int : 224 ms QRS Dur : 106 ms QT Int : 506 ms P-R-T Axes : 044 063 252 degrees QTc Int : 506 ms Sinus rhythm with 1st degree A-V block with Premature atrial complexes T wave abnormality, consider inferior ischemia T wave abnormality, consider anterolateral ischemia Prolonged QT Abnormal ECG When compared with ECG of 27-APR-2018 11:11, No significant change was found Confirmed by Casimiro MILES ([id number]) on 04/28/2018 11:52:59 PM Referred By: HARDIK Confirmed By:Casimiro MILES
[2018-04-29 04:41] LABS: Anion Gap 13 mmol/L (10-20); BUN (Urea Nitrogen) 62 mg/dL (8.4-25.7); Calc. Creatinine Clearance 30 mL/min (70-130); Calcium 11.2 mg/dL (7.8-10.44); Carbon Dioxide 25 mmol/L (23-31); Chloride 104 mmol/L (98-107); Estimated GFR-MDRD 18; Glucose 98 mg/dL (83-110); Potassium 3.7 mmol/L (3.5-5.1); Sodium 138 mmol/L (136-145)
[2018-04-29 04:52] LABS: Critical Call Chem Troponin I RESULT DECREASING; Troponin I 0.341 ng/mL (< 0.028)
[2018-04-29] MEDS: Furosemide 40 MG/4 ML VIAL SLOW IVP SCH ×2 (05:49→16:05)
[2018-04-29] MEDS: Potassium Chloride 40 MEQ in Sodium Chloride 0.45% 1,000 ML IV SCH ×2 (05:57→19:37)
[2018-04-29] MEDS ORDERED: Sodium Bicarbonate 2.5 MEQ/5 ML VIAL ONE (10:19)
[2018-04-29] MEDS ORDERED: Midazolam HCl 2 mg/2 ml Vial ONE (10:19)
[2018-04-29] MEDS ORDERED: Fentanyl 100 MCG/2 ML VIAL ONE (10:20)
[2018-04-29] MEDS: Heparin 5,000 UNITS/ML VIAL SC SCH ×2 (12:23→22:19)
[2018-04-29] MEDS: Docusate 100 MG CAP PO SCH ×2 (12:24→22:19)
[2018-04-29] MEDS: Famotidine 20 MG TAB PO SCH (12:24)
[2018-04-29] MEDS: Lidocaine 5% Patch TD SCH (12:25)
[2018-04-29] MEDS: Potassium Chloride 20 MEQ TAB PO SCH ×2 (12:25→18:30)
[2018-04-29] MEDS: hydrALAZINE 25 MG TAB PO SCH ×3 (12:25→22:19)
--- NOTE | 2018-04-29 14:24 | EKG ---
Test Reason : FALL Blood Pressure : / mmHG Vent. Rate : 060 BPM Atrial Rate : 087 BPM P-R Int : 000 ms QRS Dur : 104 ms QT Int : 436 ms P-R-T Axes : 000 012 038 degrees QTc Int : 436 ms Junctional rhythm Possible Lateral infarct , age undetermined Abnormal ECG Confirmed by VENKATA FLORES, MATILDA ([id number]), technical writer and editor MARLO WYMAN ([id number]) on 04/29/2018 2:24:06 PM Referred By: Confirmed By:MATILDA HASTINGS MD
--- NOTE | 2018-04-29 15:18 | CT ---
CT GUIDED BONE MARROW BIOPSY: Date: 04/29/18 HISTORY: Lytic lesions. COMPARISON: CT dated 04/27/18. FINDINGS: The patient was brought to the CT suite. All questions were answered. The patient was prepped and draped in the normal sterile fashion after being in the prone position. I nformed consent was obtained, Timeout was performed. 5 mL of lidocaine was instilled into the superficial and deep soft tissues, as well as along the nicho osteum. Small dermatotomy was made. Using a 14 gauge biopsy set, 10 mL of bone marrow was aspirated. This was given the radiological technologist. Next, a 1.0 cm core of bone was obtained using the dri ll. The patient tolerated the procedure well and without complication. IMPRESSION: Technically successful CT guided bone marrow biopsy. POS: [facility]
--- NOTE | 2018-04-29 16:52 | PDOC.PN ---
- Subjective Encounter Start Date: 04/29/18 Encounter Start Time: 13:00 PAtient is seen today, alert and oriented. He is worried about the Diagnosis , explained will know for sure after the biopsy. No other Concrn snoted. - Objective Resuscitation Status: Resuscitation Status FULL:Full Resuscitation MAR Reviewed: Yes Vital Signs & Weight: Vital Signs (12 hours) Temp Pulse Pulse Pulse Resp BP BP 04/29/18 16:05 63 04/29/18 15:40 97.6 F 63 24 H 04/29/18 14:30 65 66 110/63 139/64 04/29/18 08:00 97.3 F L 60 22 H 04/29/18 07:48 97.3 F L 60 31 H 04/29/18 06:30 97.8 F 60 20 BP Pulse Ox 04/29/18 16:05 04/29/18 15:40 145/71 H 97 04/29/18 14:30 04/29/18 08:00 98 04/29/18 07:48 156/71 H 94 L 04/29/18 06:30 143/64 H 95 Weight Admit Weight 250 lb 8 oz Weight 250 lb 8 oz Most Recent Monitor Data Heart Rate from ECG 62 NIBP 151/60 NIBP BP-Mean 91 Respiration from ECG 24 SpO2 96 I&O: 04/28/18 04/29/18 04/30/18 06:59 06:59 06:59 Intake Total 2401 2835 Output Total 3730 6175 800 Balance -1329 -3340 -800 Result Diagrams: 04/27/18 08:58 04/29/18 03:15 Radiology Reviewed by me: Yes Phys Exam - Physical Examination HEENT: PERRLA, moist MMs Neck: no nodes, no JVD Respiratory: no wheezing, no rales Cardiovascular: RRR, no significant murmur Gastrointestinal: soft, non-tender Musculoskeletal: no edema, pulses present Neurological: non-focal, normal sensation Psychiatric: normal affect, A&O x 3 Dx/Plan (1) REBECA (acute kidney injury) Code(s): N17.9 - ACUTE KIDNEY FAILURE, UNSPECIFIED Status: Acute Comment: Likely from MM Glomerular injury, likely ATN, will consult Nephrology. (2) Cancer with unknown primary site Code(s): C80.1 - MALIGNANT (PRIMARY) NEOPLASM, UNSPECIFIED Status: Acute Comment: with lytic bone lesions, ?multiple myeloma (3) Hypercalcemia Code(s): E83.52 - HYPERCALCEMIA Status: Acute Comment: sec to lytic bone lesions (4) Lytic bone lesions on xray Code(s): M89.9 - DISORDER OF BONE, UNSPECIFIED Status: Acute (5) HTN (hypertension) Code(s): I10 - ESSENTIAL (PRIMARY) HYPERTENSION Status: Chronic Qualifiers: Hypertension type: essential hypertension Qualified Code(s): I10 - Essential (primary) hypertension Comment: will Hold ACEI, continue on Hydralazine, (6) h/o afib Status: Chronic - Plan cont current plan of care, 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 Review of Systems - Review of Systems Constitutional: negative: fever, chills, sweats, weakness, malaise, other Eyes: negative: Pain, Vision Change, Conjunctivae Inflammation, Eyelid Inflammation, Redness, Other ENT: negative: Ear Pain, Ear Discharge, Nose Pain, Nose Discharge, Nose Congestion, Mouth Pain, Mouth Swelling, Throat Pain, Throat Swelling, Other Respiratory: negative: Cough, Dry, Shortness of Breath, Hemoptysis, SOB with Excertion, Pleuritic Pain, Sputum, Wheezing Cardiovascular: negative: chest pain, palpitations, orthopnea, paroxysmal nocturnal dyspnea, edema, light headedness, other Gastrointestinal: negative: Nausea, Vomiting, Abdominal Pain, Diarrhea, Constipation, Melena, Hematochezia, Other Genitourinary: negative: Dysuria, Frequency, Incontinence, Hematuria, Retention , Other Musculoskeletal: negative: Neck Pain, Shoulder Pain, Arm Pain, Back Pain, Hand Pain, Leg Pain, Foot Pain, Other Skin: negative: Rash, Lesions, Geovanni, Bruising, Other - Medications/Allergies Allergies/Adverse Reactions: Allergies Allergy/AdvReac Type Severity Reaction Status Date / Time No Known Drug Allergies Allergy Verified 04/25/18 20:07 Medications: Current Medications Acetaminophen (Tylenol) 650 mg PO Q4H PRN PRN Reason: Headache/Fever or Pain Hydrocodone Bitart/Acetaminophen ([place] 5/325) 1 tab PO Q4H PRN PRN Reason: Moderate Pain (4-6) Docusate Sodium (Colace) 100 mg PO BID [facility] Last Admin: 04/29/18 12:24 Dose: Not Given Famotidine (Pepcid) 20 mg PO DAILY [facility] Last Admin: 04/29/18 12:24 Dose: Not Given Furosemide (Lasix) 40 mg SLOW IVP 0600,1400 [facility] Last Admin: 04/29/18 16:05 Dose: Not Given Guaifenesin/Dextromethorphan (Robitussin Dm) 15 ml PO Q4H PRN PRN Reason: Cough Heparin Sodium (Porcine) (Heparin) 5,000 units SC BID [facility] Last Admin: 04/29/18 12:23 Dose: Not Given Hydralazine HCl (Apresoline) 25 mg PO TID [facility] Last Admin: 04/29/18 16:05 Dose: Not Given Potassium Chloride 40 meq/ (Sodium Chloride) 1,020 mls @ 100 mls/hr IV .[id number] [facility] Last Admin: 04/29/18 05:57 Dose: 1,020 mls Lidocaine (Lidoderm 5% Patch) 1 patch TD DAILY [facility] Last Admin: 04/29/18 12:25 Dose: Not Given Ondansetron HCl (Zofran) 4 mg IVP Q6H PRN PRN Reason: Nausea/Vomiting Potassium Chloride (K-Dur) 40 meq PO BID-WM [facility] Last Admin: 04/29/18 12:25 Dose: Not Given Tramadol HCl (Ultram) 50 mg PO Q6H PRN PRN Reason: Moderate Pain (4-6)
[2018-04-29 18:10] LABS: Albumin-Ur 54.3 % (.); Alpha 1 - Ur 5.8 % (.); Beta-Ur 12.3 % (.); Gamma-Ur 22.6 % (.); M-Spike,% Not Observed % (Not Observed)
--- NOTE | 2018-04-29 21:07 | PRG ---
DATE OF SERVICE: 04/29/2018 SUBJECTIVE: Ashwin Gastelum had his bone marrow biopsy today. He is without complaints at this time. OBJECTIVE: VITAL SIGNS: Stable. He is afebrile, heart rate is in the 60s, respirations 20s, oximetry is 97, bl ood pressure is 110/63. LUNGS: Clear. IMPRESSION: Metastatic malignancy of unclear source. Nonsecretory myeloma is in the differential an d normal PSA makes prostate cancer less likely, cancer of unknown primary, still a possibility. We w ill go ahead and see what the biopsy shows. He is medically stable. He was seen by Cardiology for t ransient bradycardia. He is off his beta tonie now. PLAN: Continue to be monitored in a monitor bed. He can move off the intermediate care unit.
[2018-04-29] MEDS ORDERED: Diltiazem HCl 125 MG, Admixture Fee 1 EACH in Sodium Chloride 0.9% 100 ML IVPB SCH (23:45)
--- NOTE | 2018-04-30 00:08 | PRG ---
DATE OF SERVICE: 04/29/2018 SUBJECTIVE: The patient was seen and examined, seems to be doing much better, noted with the followi ng vital signs. PHYSICAL EXAMINATION: VITAL SIGNS: Afebrile with temperature 97.6, pulse 63, respiratory rate of 24, blood pressure 130/63 . HEENT: Unremarkable with moist oral mucosa. No conjunctival injection or icterus. NECK: Supple. CARDIOVASCULAR: First and second heart sounds were heard. RESPIRATORY: Clear to auscultation. DIGESTIVE: Revealed a benign abdomen. Positive bowel sounds. EXTREMITIES: No peripheral edema. SKIN: No new gross rash. LYMPHATICS: No peripheral lymphadenopathy. LABORATORY INVESTIGATIONS: Showed a creatinine of 3.3, calcium 11.2. IMPRESSION: 1. Acute on chronic kidney disease in the context of severe hypercalcemia. 2. Hypercalcemia. 3. Possible malignancy. PLAN: 1. We will continue with current medical management of the hypercalcemia and aware of loop diuretics and gentle rehydration. 2. Continue to renally dose all medications for low GFR and avoid potential nephrotoxic agents. 3. Further management will be dependent on the clinical course.
[2018-04-30 04:15] LABS: % Free PSA 34.8 % (.); Total PSA 2.5 ng/mL (0.0-4.0)
[2018-04-30] MEDS: Potassium Chloride 40 MEQ in Sodium Chloride 0.45% 1,000 ML IV SCH ×2 (04:24→15:00)
[2018-04-30 05:33] LABS: Anion Gap 11 mmol/L (10-20); BUN (Urea Nitrogen) 58 mg/dL (8.4-25.7); Calc. Creatinine Clearance 33 mL/min (70-130); Calcium 10.7 mg/dL (7.8-10.44); Carbon Dioxide 27 mmol/L (23-31); Chloride 107 mmol/L (98-107); Estimated GFR-MDRD 20; Glucose 111 mg/dL (83-110); Potassium 3.6 mmol/L (3.5-5.1); Sodium 141 mmol/L (136-145)
[2018-04-30] MEDS: Furosemide 40 MG/4 ML VIAL SLOW IVP SCH ×2 (05:54→15:01)
[2018-04-30] MEDS ORDERED: Amiodarone HCl 150 MG, Admixture Fee 1 EACH in Dextrose 5% in Water 100 ML IVPB SCH (08:45)
[2018-04-30] MEDS ORDERED: Amiodarone HCl 150 MG in Dextrose 5% in Water 100 ML IVPB SCH (08:45)
[2018-04-30] MEDS ORDERED: Amiodarone HCl 450 MG, Admixture Fee 1 EACH in Dextrose 5% in Water 250 ML IVPB SCH (08:45)
[2018-04-30] MEDS ORDERED: Amiodarone In Dextrose 200 ML IVPB SCH (08:45)
--- NOTE | 2018-04-30 08:51 | PRG ---
DATE OF SERVICE: 04/30/2018 The patient was seen and examined, seems to be doing much better. PHYSICAL EXAMINATION: VITAL SIGNS: Afebrile, temperature 97.6, pulse 75, blood pressure 141/81 and respiratory rate of 18, O2 sat 92%. HEAD AND NECK: Unremarkable. CARDIOVASCULAR: First and second heart sounds were heard. RESPIRATORY: Clear to auscultation. DIGESTIVE: Revealed an obese abdomen. EXTREMITIES: No peripheral edema. SKIN: No new gross rash. LYMPHATICS: No peripheral lymphadenopathy. LABORATORY INVESTIGATION: Showed a potassium of 3.6, creatinine 3.05 with BUN of 58, calcium 10.7. IMPRESSION: 1. Hypercalcemia of malignancy, much improved. 2. Acute on chronic kidney disease. PLAN: 1. Continue with current renal supportive measures. 2. Outpatient Nephrology followup strongly recommended. 3. Further management to be dependent on the clinical course as well as the biopsy results.
[2018-04-30] MEDS: hydrALAZINE 25 MG TAB PO SCH ×3 (08:59→22:20)
[2018-04-30] MEDS: Potassium Chloride 20 MEQ TAB PO SCH ×2 (08:59→18:00)
[2018-04-30] MEDS: Docusate 100 MG CAP PO SCH ×2 (08:59→22:21)
[2018-04-30] MEDS: Famotidine 20 MG TAB PO SCH (08:59)
[2018-04-30] MEDS: Lidocaine 5% Patch TD SCH (09:13)
[2018-04-30] MEDS: Heparin 5,000 UNITS/ML VIAL SC SCH ×2 (10:51→22:21)
--- NOTE | 2018-04-30 13:52 | PDOC.PN ---
- Subjective Encounter Start Date: 04/30/18 Encounter Start Time: 10:00 Patient is seen today, alert and oriented, No other concerns noted. Pt is having Afib with RVR, strted on Amiodarone drip today. - Objective Resuscitation Status: Resuscitation Status FULL:Full Resuscitation MAR Reviewed: Yes Vital Signs & Weight: Vital Signs (12 hours) Temp Pulse Pulse Pulse Pulse Resp BP 04/30/18 09:25 159 H 125 H 152 H 123/86 04/30/18 05:11 97.6 F 75 18 BP BP Pulse Ox 04/30/18 09:25 130/82 04/30/18 05:11 141/81 H 92 L Weight Admit Weight 250 lb 8 oz Weight 250 lb 8 oz Most Recent Monitor Data Heart Rate from ECG 62 NIBP 151/60 NIBP BP-Mean 91 Respiration from ECG 24 SpO2 96 I&O: 04/29/18 04/30/18 05/01/18 06:59 06:59 06:59 Intake Total 2835 200 250 Output Total 6175 4200 Balance -3340 -4000 250 Result Diagrams: 04/27/18 08:58 04/30/18 05:03 Radiology Reviewed by me: Yes Phys Exam - Physical Examination HEENT: PERRLA, moist MMs Neck: no nodes, no JVD Respiratory: no wheezing, no rales Cardiovascular: RRR, no significant murmur Gastrointestinal: soft, non-tender Musculoskeletal: no edema, pulses present Psychiatric: normal affect, A&O x 3 Skin: no rash, normal turgor Dx/Plan (1) REBECA (acute kidney injury) Code(s): N17.9 - ACUTE KIDNEY FAILURE, UNSPECIFIED Status: Acute Comment: Likely from MM Glomerular injury, likely ATN, will consulted Nephrology. Some improvement, good urine output. (2) Cancer with unknown primary site Code(s): C80.1 - MALIGNANT (PRIMARY) NEOPLASM, UNSPECIFIED Status: Acute Comment: with lytic bone lesions, ?multiple myeloma, pending biopsy results. (3) Hypercalcemia Code(s): E83.52 - HYPERCALCEMIA Status: Acute Comment: sec to lytic bone lesions, Improving with IV fluids. (4) Lytic bone lesions on xray Code(s): M89.9 - DISORDER OF BONE, UNSPECIFIED Status: Acute (5) HTN (hypertension) Code(s): I10 - ESSENTIAL (PRIMARY) HYPERTENSION Status: Chronic Qualifiers: Hypertension type: essential hypertension Qualified Code(s): I10 - Essential (primary) hypertension Comment: will Hold ACEI, continue on Hydralazine, (6) h/o afib Status: Chronic Comment: On RVR , started Amiodarone by Cardiology,. - Plan cont current plan of care, PT/OT, social human services assistants, respiratory therapy, incentive spirometry, DVT proph w/lovenox * . Review of Systems - Review of Systems Constitutional: negative: fever, chills, sweats, weakness, malaise, other Eyes: negative: Pain, Vision Change, Conjunctivae Inflammation, Eyelid Inflammation, Redness, Other Respiratory: negative: Cough, Dry, Shortness of Breath, Hemoptysis, SOB with Excertion, Pleuritic Pain, Sputum, Wheezing Musculoskeletal: negative: Neck Pain, Shoulder Pain, Arm Pain, Back Pain, Hand Pain, Leg Pain, Foot Pain, Other - Medications/Allergies Allergies/Adverse Reactions: Allergies Allergy/AdvReac Type Severity Reaction Status Date / Time No Known Drug Allergies Allergy Verified 04/25/18 20:07 Medications: Current Medications Acetaminophen (Tylenol) 650 mg PO Q4H PRN PRN Reason: Headache/Fever or Pain Hydrocodone Bitart/Acetaminophen ([place] 5/325) 1 tab PO Q4H PRN PRN Reason: Moderate Pain (4-6) Docusate Sodium (Colace) 100 mg PO BID [facility] Last Admin: 04/30/18 08:59 Dose: 100 mg Famotidine (Pepcid) 20 mg PO DAILY [facility] Last Admin: 04/30/18 08:59 Dose: 20 mg Furosemide (Lasix) 40 mg SLOW IVP 0600,1400 [facility] Last Admin: 04/30/18 05:54 Dose: 40 mg Guaifenesin/Dextromethorphan (Robitussin Dm) 15 ml PO Q4H PRN PRN Reason: Cough Heparin Sodium (Porcine) (Heparin) 5,000 units SC BID [facility] Last Admin: 04/30/18 10:51 Dose: Not Given Hydralazine HCl (Apresoline) 25 mg PO TID [facility] Last Admin: 04/30/18 08:59 Dose: 25 mg Potassium Chloride 40 meq/ (Sodium Chloride) 1,020 mls @ 100 mls/hr IV .[id number] [facility] Last Admin: 04/30/18 04:24 Dose: 1,020 mls Amiodarone HCl 450 mg/Miscellaneous Medication 1 each/ Dextrose/Water 259 mls @ 0 mls/hr IVPB INF [facility]; As Directed PRN Reason: Protocol Last Admin: 04/30/18 10:07 Dose: 259 mls Lidocaine (Lidoderm 5% Patch) 1 patch TD DAILY [facility] Last Admin: 04/30/18 09:13 Dose: 1 patch Ondansetron HCl (Zofran) 4 mg IVP Q6H PRN PRN Reason: Nausea/Vomiting Potassium Chloride (K-Dur) 40 meq PO BID-WM [facility] Last Admin: 04/30/18 08:59 Dose: 40 meq Tramadol HCl (Ultram) 50 mg PO Q6H PRN PRN Reason: Moderate Pain (4-6)
[2018-05-01] MEDS: Potassium Chloride 40 MEQ in Sodium Chloride 0.45% 1,000 ML IV SCH ×2 (01:23→12:45)
[2018-05-01 05:34] LABS: Anion Gap 13 mmol/L (10-20); BUN (Urea Nitrogen) 56 mg/dL (8.4-25.7); Calc. Creatinine Clearance 33 mL/min (70-130); Calcium 9.9 mg/dL (7.8-10.44); Carbon Dioxide 25 mmol/L (23-31); Chloride 106 mmol/L (98-107); Estimated GFR-MDRD 20; Glucose 107 mg/dL (83-110); Potassium 4.2 mmol/L (3.5-5.1); Sodium 140 mmol/L (136-145)
[2018-05-01] MEDS: Furosemide 40 MG/4 ML VIAL SLOW IVP SCH (05:42)
[2018-05-01] MEDS: Potassium Chloride 20 MEQ TAB PO SCH (08:40)
[2018-05-01] MEDS: Famotidine 20 MG TAB PO SCH (08:41)
[2018-05-01] MEDS: Docusate 100 MG CAP PO SCH ×2 (08:41→20:57)
[2018-05-01] MEDS: Heparin 5,000 UNITS/ML VIAL SC SCH ×2 (08:42→20:58)
[2018-05-01] MEDS: hydrALAZINE 25 MG TAB PO SCH ×3 (08:46→20:57)
[2018-05-01] MEDS: Lidocaine 5% Patch TD SCH (08:46)
[2018-05-01] MEDS ORDERED: Amiodarone 200 MG TAB PO SCH ×2 (10:00)
[2018-05-01 11:04] LABS: Hemoglobin 10.7 g/dL (14.0-18.0); Mean Corpuscular HGB CONC 33.9 g/dL (32.0-36.0); Mean Corpuscular Hemoglobin 36.1 pg (27.0-31.0); Mean Platelet Volume 8.7 fL (7.4-10.4); Platelet Count 123 thou/uL (130-400); RBC Distribution Width 13.7 % (11.5-14.5); Red Blood Cell (RBC) Count 2.97 mill/uL (4.70-6.10); White Blood Cell (WBC) Count 8.7 thou/uL (4.8-10.8)
[2018-05-01 11:28] LABS: Band 15 % (5-11); Eosinophils 4 % (0-10); Lymphocytes 12 % (21-51); MDiff Complete? YES; Macrocytosis SLIGHT = 6-15 cells (100X) (0-5/hpf); Monocytes 6 % (0-10); Myelocyte 1 % (0-0); Neutrophil 56 % (42-75); Ovalocytes SLIGHT = 2-5 cells (100X) (0-1/hpf); PLT Morphology Comment Appears Decreased; Reactive Lymphocytes 6 % (0-10)
[2018-05-01] MEDS ORDERED: Dexamethasone 4 MG TAB PO SCH (16:00)
--- NOTE | 2018-05-01 17:22 | PRG ---
DATE OF SERVICE: 05/01/2018 SUBJECTIVE: The patient was seen and examined, seems to be doing much better. Noted with the follow ing vital signs. OBJECTIVE: VITAL SIGNS: Afebrile with temperature 97.7, pulse 63, respiratory rate of 18, O2 sat 94% with blood pressure 149/70. HEENT: Unremarkable with moist oral mucosa. No conjunctival injection or icterus. NECK: Supple CARDIOVASCULAR SYSTEM: First and second heart sounds were heard. RESPIRATORY SYSTEM: Clear to auscultation. DIGESTIVE SYSTEM: Revealed a benign abdomen with positive bowel sounds. EXTREMITIES: No peripheral edema. SKIN: No new gross rash. LYMPHATICS: No peripheral lymphadenopathy. LABORATORY DATA: Showed a creatinine of 3.04, BUN of 56, calcium of 9.9. IMPRESSION: 1. Severe hypercalcemia in the context of malignancy. 2. Nonsecretory multiple myeloma. 3. [id number] kidney disease in the context of problems listed above. PLAN: 1. Discontinue IV fluids/potassium supplementation. 2. Continue renal supportive measures. 3. Outpatient Nephrology followup strongly recommended. 4. Further management to be dependent on the clinical course.
--- NOTE | 2018-05-01 20:03 | PRG ---
DATE OF SERVICE: 05/01/2018 SUBJECTIVE: Ashwin Gastelum has no new complaints. OBJECTIVE: VITAL SIGNS: Blood pressure is controlled at 149/70, heart rate 60, respiratory rate is 18. He is a febrile. Oximetry is 94% on room air. LUNGS: Clear. HEART: Regular rhythm. ABDOMEN: Soft. I discussed Mr. Gastelum's biopsy with the pathologist. This appears to be myeloma. Final staining is pending, but per my discussion with the pathologist, he felt confident that this was multiple myelom a. His renal function is not back to the baseline on admission. His intake and output is negative 8 L last 3 days. He probably will not tolerate this from a renal s tandpoint, so stopped his Lasix. His potassium is normal, so stopped his potassium. I have discussed the above with Dr. Grewal. His nurse practitioner will see Mr. Gastelum later today and discussed treatment options.
[2018-05-01] MEDS: Amiodarone 200 MG TAB PO SCH (20:58)
[2018-05-02 05:30] LABS: Anion Gap 14 mmol/L (10-20); BUN (Urea Nitrogen) 60 mg/dL (8.4-25.7); Calc. Creatinine Clearance 32 mL/min (70-130); Calcium 9.9 mg/dL (7.8-10.44); Carbon Dioxide 21 mmol/L (23-31); Chloride 108 mmol/L (98-107); Estimated GFR-MDRD 21; Glucose 217 mg/dL (83-110); Potassium 4.4 mmol/L (3.5-5.1); Sodium 139 mmol/L (136-145)
[2018-05-02] MEDS: Docusate 100 MG CAP PO SCH ×2 (09:39→20:37)
[2018-05-02] MEDS: Heparin 5,000 UNITS/ML VIAL SC SCH ×2 (09:39→20:36)
[2018-05-02] MEDS: Famotidine 20 MG TAB PO SCH (09:39)
[2018-05-02] MEDS: Amiodarone 200 MG TAB PO SCH ×2 (09:39→20:37)
[2018-05-02] MEDS: hydrALAZINE 25 MG TAB PO SCH ×3 (09:39→20:37)
[2018-05-02] MEDS: Dexamethasone 4 MG TAB PO SCH (09:40)
[2018-05-02] MEDS: Lidocaine 5% Patch TD SCH (09:42)
--- NOTE | 2018-05-02 11:23 | PDOC.PN ---
- Subjective Encounter Start Date: 05/01/18 Encounter Start Time: 12:00 Michael is seen today, alert and oriented. He is requresting to get his Fisher removed, He can pass urine in container. No chest pain or SOB. - Objective Resuscitation Status: Resuscitation Status FULL:Full Resuscitation MAR Reviewed: Yes Vital Signs & Weight: Vital Signs (12 hours) Temp Pulse Resp BP Pulse Ox 05/02/18 09:39 59 L 05/02/18 09:34 97.7 F 59 L 14 142/68 H 93 L 05/02/18 03:14 97.3 F L 58 L 16 162/73 H 93 L 05/01/18 23:39 97.6 F 59 L 20 171/84 H 94 L Weight Admit Weight 250 lb 8 oz Weight 230 lb 14.4 oz Most Recent Monitor Data Heart Rate from ECG 62 NIBP 151/60 NIBP BP-Mean 91 Respiration from ECG 24 SpO2 96 I&O: 05/01/18 05/02/18 05/03/18 06:59 06:59 06:59 Intake Total 2090 2117 Output Total 5400 1700 Balance -3310 417 Result Diagrams: 05/01/18 10:55 05/02/18 05:08 Radiology Reviewed by me: Yes EKG Reviewed by me: Yes Phys Exam - Physical Examination HEENT: PERRLA, moist MMs Neck: no nodes, no JVD Respiratory: no wheezing, no rales Cardiovascular: RRR, no significant murmur Gastrointestinal: soft, non-tender Musculoskeletal: no edema, pulses present Lymphatic: no nodes Psychiatric: normal affect, A&O x 3 Skin: no rash Dx/Plan (1) REBECA (acute kidney injury) Code(s): N17.9 - ACUTE KIDNEY FAILURE, UNSPECIFIED Status: Acute Comment: Likely from MM Glomerular injury, likely ATN, will consulted Nephrology. Some improvement, good urine output. d/c Fisher cath (2) Cancer with unknown primary site Code(s): C80.1 - MALIGNANT (PRIMARY) NEOPLASM, UNSPECIFIED Status: Acute Comment: with lytic bone lesions, ?multiple myeloma, pending biopsy results. (3) Hypercalcemia Code(s): E83.52 - HYPERCALCEMIA Status: Acute Comment: sec to lytic bone lesions, Improving with IV fluids. (4) Lytic bone lesions on xray Code(s): M89.9 - DISORDER OF BONE, UNSPECIFIED Status: Acute (5) HTN (hypertension) Code(s): I10 - ESSENTIAL (PRIMARY) HYPERTENSION Status: Chronic Qualifiers: Hypertension type: essential hypertension Qualified Code(s): I10 - Essential (primary) hypertension Comment: will Hold ACEI, continue on Hydralazine, (6) h/o afib Status: Chronic Comment: On RVR , started Amiodarone by Cardiology,. - Plan cont current plan of care, social worker, respiratory therapy, incentive spirometry, out of bed/ambulate, DVT proph w/SCDs * . Review of Systems - Review of Systems Constitutional: negative: fever, chills, sweats, weakness, malaise, other Eyes: negative: Pain, Vision Change, Conjunctivae Inflammation, Eyelid Inflammation, Redness, Other Respiratory: negative: Cough, Dry, Shortness of Breath, Hemoptysis, SOB with Excertion, Pleuritic Pain, Sputum, Wheezing Cardiovascular: negative: chest pain, palpitations, orthopnea, paroxysmal nocturnal dyspnea, edema, light headedness, other Gastrointestinal: negative: Nausea, Vomiting, Abdominal Pain, Diarrhea, Constipation, Melena, Hematochezia, Other Musculoskeletal: negative: Neck Pain, Shoulder Pain, Arm Pain, Back Pain, Hand Pain, Leg Pain, Foot Pain, Other Skin: negative: Rash, Lesions, [place], Bruising, Other - Medications/Allergies Allergies/Adverse Reactions: Allergies Allergy/AdvReac Type Severity Reaction Status Date / Time No Known Drug Allergies Allergy Verified 04/25/18 20:07 Medications: Current Medications Acetaminophen (Tylenol) 650 mg PO Q4H PRN PRN Reason: Headache/Fever or Pain Hydrocodone Bitart/Acetaminophen ([place] 5/325) 1 tab PO Q4H PRN PRN Reason: Moderate Pain (4-6) Amiodarone HCl (Cordarone) 200 mg PO BID [facility] Last Admin: 05/02/18 09:39 Dose: 200 mg Dexamethasone (Decadron) 40 mg PO [facility] Stop: 05/05/18 08:01 Last Admin: 05/02/18 09:40 Dose: 40 mg Docusate Sodium (Colace) 100 mg PO BID [facility] Last Admin: 05/02/18 09:39 Dose: 100 mg Famotidine (Pepcid) 20 mg PO DAILY [facility] Last Admin: 05/02/18 09:39 Dose: 20 mg Guaifenesin/Dextromethorphan (Robitussin Dm) 15 ml PO Q4H PRN PRN Reason: Cough Heparin Sodium (Porcine) (Heparin) 5,000 units SC BID [facility] Last Admin: 05/02/18 09:39 Dose: 5,000 units Hydralazine HCl (Apresoline) 25 mg PO TID [facility] Last Admin: 05/02/18 09:39 Dose: 25 mg Amiodarone HCl 450 mg/Miscellaneous Medication 1 each/ Dextrose/Water 259 mls @ 0 mls/hr IVPB INF [facility]; As Directed PRN Reason: Protocol Last Admin: 04/30/18 10:07 Dose: 259 mls Lidocaine (Lidoderm 5% Patch) 1 patch TD DAILY [facility] Last Admin: 05/02/18 09:42 Dose: 1 patch Ondansetron HCl (Zofran) 4 mg IVP Q6H PRN PRN Reason: Nausea/Vomiting Tramadol HCl (Ultram) 50 mg PO Q6H PRN PRN Reason: Moderate Pain (4-6)
--- NOTE | 2018-05-02 15:08 | PDOC.PN ---
- Subjective Encounter Start Date: 05/02/18 Encounter Start Time: 10:00 Patient is seen today, alert and oriented. No other concenr snoted, pt admitted with Lytic bone lesions worseing renal failure, Biopsy sugestive of MM. - Objective Resuscitation Status: Resuscitation Status FULL:Full Resuscitation MAR Reviewed: Yes Vital Signs & Weight: Vital Signs (12 hours) Temp Pulse Resp BP BP Pulse Ox 05/02/18 14:51 58 L 160/58 H 05/02/18 14:44 97.5 F L 58 L 16 160/78 H 93 L 05/02/18 11:51 98.0 F 59 L 15 158/76 H 95 05/02/18 09:39 59 L 05/02/18 09:34 97.7 F 59 L 14 142/68 H 93 L 05/02/18 03:14 97.3 F L 58 L 16 162/73 H 93 L Weight Admit Weight 250 lb 8 oz Weight 230 lb 14.4 oz Most Recent Monitor Data Heart Rate from ECG 62 NIBP 151/60 NIBP BP-Mean 91 Respiration from ECG 24 SpO2 96 I&O: 05/01/18 05/02/18 05/03/18 06:59 06:59 06:59 Intake Total 2090 2117 Output Total 5400 1700 Balance -3310 417 Result Diagrams: 05/01/18 10:55 05/02/18 05:08 Radiology Reviewed by me: Yes Phys Exam - Physical Examination HEENT: PERRLA, moist MMs Neck: no nodes, no JVD Respiratory: no wheezing, no rales Cardiovascular: RRR, no significant murmur Gastrointestinal: soft, non-tender Musculoskeletal: no edema, pulses present Neurological: non-focal, normal sensation Dx/Plan (1) REBECA (acute kidney injury) Code(s): N17.9 - ACUTE KIDNEY FAILURE, UNSPECIFIED Status: Acute Comment: Likely from MM Glomerular injury, likely ATN, will consulted Nephrology. Some improvement, good urine output. d/c Fisher cath (2) Cancer with unknown primary site Code(s): C80.1 - MALIGNANT (PRIMARY) NEOPLASM, UNSPECIFIED Status: Acute Comment: with lytic bone lesions, ?multiple myeloma, biopsy results showed, Oncology plan to see as outpaitent. (3) Hypercalcemia Code(s): E83.52 - HYPERCALCEMIA Status: Acute Comment: sec to lytic bone lesions, Improving with IV fluids. (4) Lytic bone lesions on xray Code(s): M89.9 - DISORDER OF BONE, UNSPECIFIED Status: Acute Comment: Multiple Myeloma, pt started on Dexa by Oncology Dr. noble. (5) HTN (hypertension) Code(s): I10 - ESSENTIAL (PRIMARY) HYPERTENSION Status: Chronic Qualifiers: Hypertension type: essential hypertension Qualified Code(s): I10 - Essential (primary) hypertension Comment: will Hold ACEI, continue on Hydralazine, (6) h/o afib Status: Chronic Comment: On RVR , started Amiodarone by Cardiology,. changed tp PO today. - Plan cont current plan of care, PT/OT, health and social care teacher, incentive spirometry, out of bed/ambulate, DVT proph w/SCDs * . Review of Systems - Review of Systems ENT: negative: Ear Pain, Ear Discharge, Nose Pain, Nose Discharge, Nose Congestion, Mouth Pain, Mouth Swelling, Throat Pain, Throat Swelling, Other Respiratory: negative: Cough, Dry, Shortness of Breath, Hemoptysis, SOB with Excertion, Pleuritic Pain, Sputum, Wheezing Cardiovascular: negative: chest pain, palpitations, orthopnea, paroxysmal nocturnal dyspnea, edema, light headedness, other Gastrointestinal: negative: Nausea, Vomiting, Abdominal Pain, Diarrhea, Constipation, Melena, Hematochezia, Other Musculoskeletal: negative: Neck Pain, Shoulder Pain, Arm Pain, Back Pain, Hand Pain, Leg Pain, Foot Pain, Other - Medications/Allergies Allergies/Adverse Reactions: Allergies Allergy/AdvReac Type Severity Reaction Status Date / Time No Known Drug Allergies Allergy Verified 04/25/18 20:07 Medications: Current Medications Acetaminophen (Tylenol) 650 mg PO Q4H PRN PRN Reason: Headache/Fever or Pain Hydrocodone Bitart/Acetaminophen ([place] 5/325) 1 tab PO Q4H PRN PRN Reason: Moderate Pain (4-6) Amiodarone HCl (Cordarone) 200 mg PO BID [facility] Last Admin: 05/02/18 09:39 Dose: 200 mg Dexamethasone (Decadron) 40 mg PO QA[facility] Stop: 05/05/18 08:01 Last Admin: 05/02/18 09:40 Dose: 40 mg Docusate Sodium (Colace) 100 mg PO BID [facility] Last Admin: 05/02/18 09:39 Dose: 100 mg Famotidine (Pepcid) 20 mg PO DAILY [facility] Last Admin: 05/02/18 09:39 Dose: 20 mg Guaifenesin/Dextromethorphan (Robitussin Dm) 15 ml PO Q4H PRN PRN Reason: Cough Heparin Sodium (Porcine) (Heparin) 5,000 units SC BID [facility] Last Admin: 05/02/18 09:39 Dose: 5,000 units Hydralazine HCl (Apresoline) 25 mg PO TID [facility] Last Admin: 05/02/18 14:51 Dose: 25 mg Amiodarone HCl 450 mg/Miscellaneous Medication 1 each/ Dextrose/Water 259 mls @ 0 mls/hr IVPB INF [facility]; As Directed PRN Reason: Protocol Last Admin: 04/30/18 10:07 Dose: 259 mls Lidocaine (Lidoderm 5% Patch) 1 patch TD DAILY [facility] Last Admin: 05/02/18 09:42 Dose: 1 patch Ondansetron HCl (Zofran) 4 mg IVP Q6H PRN PRN Reason: Nausea/Vomiting Tramadol HCl (Ultram) 50 mg PO Q6H PRN PRN Reason: Moderate Pain (4-6)
--- NOTE | 2018-05-02 16:50 | PRG ---
DATE OF SERVICE: 05/02/2018 SUBJECTIVE: The patient with no new complaint. Noted with the following vital signs. OBJECTIVE: VITAL SIGNS: Afebrile with temperature 97.5, pulse 58, respiratory rate of 16, blood pressure 160/78 . HEENT: Unremarkable. CARDIOVASCULAR SYSTEM: First and second heart sounds were heard. RESPIRATORY SYSTEM: Clear to auscultation. DIGESTIVE SYSTEM: Revealed a benign abdomen with positive bowel sounds. EXTREMITIES: No peripheral edema. SKIN: No new gross rash. LYMPHATICS: No peripheral lymphadenopathy. LABORATORY INVESTIGATION: Showed a creatinine of 2.94 with BUN of 60. IMPRESSION: 1. Severe hypercalcemia in the context of multiple myeloma, improved. 2. Acute on chronic kidney disease, continues to improve. PLAN: 1. We will continue with current renal supportive measures. 2. Outpatient Nephrology followup status post discharge strongly recommended.
--- NOTE | 2018-05-02 20:11 | PDOC.CTH ---
Cardiology Progress Note - Subjective Doing well. Breathing at baseline. He has been in sinus since last night. - Objective Vital Signs Temp Pulse Resp BP BP Pulse Ox 05/02/18 14:51 58 L 160/58 H 05/02/18 14:44 97.5 F L 58 L 16 160/78 H 93 L 05/02/18 11:51 98.0 F 59 L 15 158/76 H 95 05/02/18 09:39 59 L 05/02/18 09:34 97.7 F 59 L 14 142/68 H 93 L Admit Weight 250 lb 8 oz Weight 230 lb 14.4 oz 05/01/18 05/02/18 05/03/18 06:59 06:59 06:59 Intake Total 2090 2117 960 Output Total 5400 1700 1125 Balance -3310 417 -165 - Physical Examination General/Neuro: alert & oriented x3, NAD Neck: no JVD present Lungs: unlabored respirations Heart: RRR Abdomen: NT/ND Extremities: + edema B (1+) - Telemetry Telemetry Rhythm: NSR - Labs Result Diagrams: 05/01/18 10:55 05/02/18 05:08 Troponin/CKMB CK-MB (CK-2) 2.0 ng/mL (0-6.6) 04/27/18 10:43 Troponin I 0.341 ng/mL (< 0.028) H* 04/29/18 03:15 - Assessment/Plan 1. Bradycardia, improved. HR in the upper 50's. 2. Non ischemic CM, normalized EF on echo this admission. 3. Hypercalcemia 4. Multiple myeloma 5. REBECA on CKD. 6. Hx of afib . PLAN: - No new recs. - Continue current meds .
[2018-05-03] MEDS: Dexamethasone 4 MG TAB PO SCH (09:25)
[2018-05-03] MEDS: Famotidine 20 MG TAB PO SCH (09:26)
[2018-05-03] MEDS: Heparin 5,000 UNITS/ML VIAL SC SCH ×2 (09:26→20:15)
[2018-05-03] MEDS: hydrALAZINE 25 MG TAB PO SCH ×3 (09:26→20:15)
[2018-05-03] MEDS: Docusate 100 MG CAP PO SCH ×2 (09:26→20:15)
[2018-05-03] MEDS: Amiodarone 200 MG TAB PO SCH (09:26)
[2018-05-03] MEDS: Lidocaine 5% Patch TD SCH (09:27)
[2018-05-03 11:04] LABS: ALT (SGPT) 45 U/L (8-55); AST (SGOT) 45 U/L (5-34); Albumin 3.9 g/dL (3.4-4.8); Alkaline Phosphatase 75 U/L (40-150); Bilirubin, Direct 0.5 mg/dL (0.1-0.3); Bilirubin, Total 1.2 mg/dL (0.2-1.2); Magnesium 2.1 mg/dL (1.6-2.6); Protein, Total 6.7 g/dL (5.8-8.1)
[2018-05-03] MEDS: Amiodarone HCl 450 MG, Admixture Fee 1 EACH in Dextrose 5% in Water 250 ML IVPB SCH ×2 (11:27→20:56)
--- NOTE | 2018-05-03 13:52 | PDOC.PN ---
- Subjective Encounter Start Date: 05/03/18 Encounter Start Time: 13:58 Ptient seen and examined today. Admitted for MM w lytic lesions, hyperkalemia and REBECA. Also started on amiodarone for A fib. - Objective Resuscitation Status: Resuscitation Status FULL:Full Resuscitation MAR Reviewed: Yes Vital Signs & Weight: Vital Signs (12 hours) Temp Pulse Resp BP Pulse Ox 05/03/18 08:38 97.6 F 60 16 93 L 05/03/18 08:36 97.6 F 60 16 158/78 H 93 L 05/03/18 03:25 97.6 F 55 L 20 171/76 H 94 L Weight Admit Weight 250 lb 8 oz Weight 226 lb 8 oz Most Recent Monitor Data Heart Rate from ECG 62 NIBP 151/60 NIBP BP-Mean 91 Respiration from ECG 24 SpO2 96 I&O: 05/02/18 05/03/18 05/04/18 06:59 06:59 06:59 Intake Total 2117 1360 Output Total 1700 1475 Balance 417 -115 Result Diagrams: 05/01/18 10:55 05/02/18 05:08 Phys Exam - Physical Examination Constitutional: NAD HEENT: PERRLA, moist MMs, sclera anicteric, oral pharynx no lesions Neck: no JVD, supple, full ROM Respiratory: no wheezing, no rales, no rhonchi, clear to auscultation bilateral Cardiovascular: RRR, no significant murmur, no rub Gastrointestinal: soft, non-tender, no distention, positive bowel sounds Musculoskeletal: no edema, pulses present Neurological: non-focal, normal sensation Psychiatric: normal affect, A&O x 3 Deviation from normal: Chronic venous stasis b/l lower extremities. Dx/Plan (1) Multiple myeloma Code(s): C90.00 - MULTIPLE MYELOMA NOT HAVING ACHIEVED REMISSION Status: Acute Comment: Stable. had lytic lesions, hypercalcemia and REBECA. f/u pathology results. (2) Bradycardia Code(s): R00.1 - BRADYCARDIA, UNSPECIFIED Status: Acute Comment: Improving. (3) A-fib Code(s): I48.91 - UNSPECIFIED ATRIAL FIBRILLATION Status: Acute Comment: On IV and PO amiodarone. Cardiology on board. Currently rate controlled. (4) REBECA (acute kidney injury) Code(s): N17.9 - ACUTE KIDNEY FAILURE, UNSPECIFIED Status: Acute Comment: REBECA on ? CKD. Likely from MM Glomerular injury, likely ATN. nephrology on board. recs appreciated. (5) Hypercalcemia Code(s): E83.52 - HYPERCALCEMIA Status: Acute Comment: 2/2 MM. (6) Lytic bone lesions on xray Code(s): M89.9 - DISORDER OF BONE, UNSPECIFIED Status: Acute Comment: 2/2 Multiple Myeloma. he has been started on Dexa by Oncology. (7) Chronic venous stasis Code(s): I87.8 - OTHER SPECIFIED DISORDERS OF VEINS Status: Chronic (8) HTN (hypertension) Code(s): I10 - ESSENTIAL (PRIMARY) HYPERTENSION Status: Chronic Qualifiers: Hypertension type: essential hypertension Qualified Code(s): I10 - Essential (primary) hypertension Comment: Fair control. ACEi held 2/2 REBECA. Continue hydralazine. - Plan cont current plan of care, PT/OT, manager social responsibility, respiratory therapy, out of bed/ambulate, DVT proph w/heparin Continue IV amiodarone and PO Amiodarone. F/u pathology results Review of Systems - Medications/Allergies Allergies/Adverse Reactions: Allergies Allergy/AdvReac Type Severity Reaction Status Date / Time No Known Drug Allergies Allergy Verified 04/25/18 20:07 Medications: Current Medications Acetaminophen (Tylenol) 650 mg PO Q4H PRN PRN Reason: Headache/Fever or Pain Hydrocodone Bitart/Acetaminophen (Edwards 5/325) 1 tab PO Q4H PRN PRN Reason: Moderate Pain (4-6) Amiodarone HCl (Cordarone) 200 mg PO BID [facility] Last Admin: 05/03/18 09:26 Dose: 200 mg Dexamethasone (Decadron) 40 mg PO [facility] Stop: 05/05/18 08:01 Last Admin: 05/03/18 09:25 Dose: 40 mg Docusate Sodium (Colace) 100 mg PO BID [facility] Last Admin: 05/03/18 09:26 Dose: 100 mg Famotidine (Pepcid) 20 mg PO DAILY [facility] Last Admin: 05/03/18 09:26 Dose: 20 mg Guaifenesin/Dextromethorphan (Robitussin Dm) 15 ml PO Q4H PRN PRN Reason: Cough Heparin Sodium (Porcine) (Heparin) 5,000 units SC BID [facility] Last Admin: 05/03/18 09:26 Dose: 5,000 units Hydralazine HCl (Apresoline) 25 mg PO TID [facility] Last Admin: 05/03/18 09:26 Dose: 25 mg Amiodarone HCl 450 mg/Miscellaneous Medication 1 each/ Dextrose/Water 259 mls @ 0 mls/hr IVPB INF PELON; As Directed PRN Reason: Protocol Last Admin: 04/30/18 10:07 Dose: 259 mls Amiodarone HCl 450 mg/Miscellaneous Medication 1 each/ Dextrose/Water 259 mls @ 0 mls/hr IVPB INF PELON; As Directed PRN Reason: Protocol Last Admin: 05/03/18 11:27 Dose: 259 mls Lidocaine (Lidoderm 5% Patch) 1 patch TD DAILY [facility] Last Admin: 05/03/18 09:27 Dose: 1 patch Ondansetron HCl (Zofran) 4 mg IVP Q6H PRN PRN Reason: Nausea/Vomiting Tramadol HCl (Ultram) 50 mg PO Q6H PRN PRN Reason: Moderate Pain (4-6)
--- NOTE | 2018-05-03 16:01 | PDOC.CTH ---
Cardiology Progress Note - Subjective He feels well but started to get palpitations this morning. - Objective Vital Signs Temp Pulse Resp BP Pulse Ox 05/03/18 15:46 97.6 F 102 H 18 154/86 H 94 L 05/03/18 12:00 97.5 F L 115 H 18 138/93 H 94 L 05/03/18 08:38 97.6 F 60 16 93 L 05/03/18 08:36 97.6 F 60 16 158/78 H 93 L Admit Weight 250 lb 8 oz Weight 226 lb 8 oz 05/02/18 05/03/18 05/04/18 06:59 06:59 06:59 Intake Total 2117 1360 Output Total 1700 1475 Balance 417 -115 - Physical Examination General/Neuro: alert & oriented x3, NAD Neck: no JVD present Lungs: unlabored respirations Heart: other: (Irreg) Abdomen: NT/ND Extremities: + edema B (1+) - Telemetry Telemetry Rhythm: Afib HR 140's. - Labs Result Diagrams: 05/01/18 10:55 05/02/18 05:08 Troponin/CKMB CK-MB (CK-2) 2.0 ng/mL (0-6.6) 04/27/18 10:43 Troponin I 0.341 ng/mL (< 0.028) H* 04/29/18 03:15 - Assessment/Plan 1. Bradycardia, improved. HR in the upper 50's. 2. Non ischemic CM, normalized EF on echo this admission. 3. Hypercalcemia 4. Multiple myeloma 5. REBECA on CKD. 6. Afib RVR PLAN: - Will switch amio to IV drip. - Continue other meds .
--- NOTE | 2018-05-03 18:44 | PRG ---
DATE OF SERVICE: 05/03/2018 SUBJECTIVE: The patient seen and examined, seems to be doing much better noted with the following. PHYSICAL EXAMINATION: VITAL SIGNS: Afebrile with temperature 97.5, pulse 60, respiratory rate of 16, O2 sat 93% with a blo od pressure of 158/78. HEENT: Unremarkable. CARDIOVASCULAR SYSTEM: First and second heart sounds were heard. RESPIRATORY SYSTEM: Clear to auscultation. DIGESTIVE SYSTEM: Revealed a benign abdomen, positive bowel sounds. EXTREMITIES: No peripheral edema. SKIN: No new gross rash. LYMPHATICS: No peripheral lymphadenopathy. IMPRESSION: 1. Malignant hypercalcemia, much improved. 2. Acute on chronic kidney disease, improving. 3. Multiple myeloma with potential myeloma kidney. 4. Atrial fibrillation, on amiodarone. PLAN: 1. Continue current renal supportive measures. 2. Outpatient Nephrology followup. 3. Further management to be dependent on the clinical course.
[2018-05-04 05:54] LABS: Hemoglobin 12.5 g/dL (14.0-18.0); Mean Corpuscular HGB CONC 33.9 g/dL (32.0-36.0); Mean Corpuscular Hemoglobin 36.2 pg (27.0-31.0); Mean Platelet Volume 9.5 fL (7.4-10.4); Platelet Count 157 thou/uL (130-400); RBC Distribution Width 13.6 % (11.5-14.5); Red Blood Cell (RBC) Count 3.45 mill/uL (4.70-6.10); White Blood Cell (WBC) Count 8.8 thou/uL (4.8-10.8)
[2018-05-04 06:06] LABS: Anion Gap 13 mmol/L (10-20); BUN (Urea Nitrogen) 64 mg/dL (8.4-25.7); Calc. Creatinine Clearance 39 mL/min (70-130); Calcium 8.9 mg/dL (7.8-10.44); Carbon Dioxide 23 mmol/L (23-31); Chloride 110 mmol/L (98-107); Estimated GFR-MDRD 28; Glucose 156 mg/dL (83-110); Potassium 3.7 mmol/L (3.5-5.1); Sodium 142 mmol/L (136-145)
[2018-05-04] MEDS: Dexamethasone 4 MG TAB PO SCH (08:26)
[2018-05-04] MEDS: hydrALAZINE 25 MG TAB PO SCH ×3 (08:27→20:29)
[2018-05-04] MEDS: Heparin 5,000 UNITS/ML VIAL SC SCH ×2 (08:27→20:29)
[2018-05-04] MEDS: Docusate 100 MG CAP PO SCH ×2 (08:27→20:29)
[2018-05-04] MEDS: Famotidine 20 MG TAB PO SCH (08:27)
[2018-05-04] MEDS: Lidocaine 5% Patch TD SCH ×2 (08:28→08:38)
--- NOTE | 2018-05-04 08:59 | PQF ---
CLINICAL DOCUMENTATION IMPROVEMENT CLARIFICATION FORM: ICD-10 Updated PLEASE DO AN ADDENDUM TO THE PROGRESS NOTE WITH ANY DOCUMENTATION UPDATES OR ADDITIONS AND CARRY THROUGH TO DC SUMMARY. THANK YOU. DATE: 05/04 ATTN: DR. Patsy MADRIGAL Please exercise your independent, professional judgment in responding to the clarification form. Clinical indicators are provided on the bottom of this form for your review Please check appropriate box(s) to clarify if the following diagnosis has been ruled in or ruled out: LIKELY ATN [ ] Ruled in diagnosis [ ] Continue to treat [ ] Resolved [ ] Ruled out diagnosis [ ] Other diagnosis [ x ] Unable to determine For continuity of documentation, please document condition throughout progress notes and discharge summary. Thank You. CLINICAL INDICATORS - SIGNS / SYMPTOMS / LABS ATTENDING PN 04/29 - 05/03: DX/PLAN: REBECA, LIKELY FROM MULTIPLE MYELOMA GLOMERULAR INJURY, LIKELY ATN NEPHROLOGY PN 05/03: 2) ACUTE ON CHRONIC KIDNEY DISEASE, IMPROVING. 3) MULTIPLE MYELOMA WITH POTENTIAL MYELOMA KIDNEY ONCOLOGY PN 05/01 - : CKD 4, STABLE BUN: 32 - 64 CR: 2.48 - 3.42 GFR: 18 - 28 ( - 05/04) RISK FACTORS: HYPERCALCEMIA OF MALIGNANCY (UNKNOWN PRIMARY) ACUTE RENAL FAILURE TREATMENTS: IVF (NS 04/25) IV ZOMETA (04/25) THANK YOU! Brittany (This form is maintained as a part of the permanent medical record) 2014 depict, [employer]. All Rights Reserved Brittany Navarro RN, BSN [email or web address] Office: [phone] [facility]
[2018-05-04 09:49] VITALS: BMI 31.4
--- NOTE | 2018-05-04 10:36 | CON ---
DATE OF CONSULTATION: 05/04/2018 CONSULTING SERVICE: Cardiac Electrophysiology REQUESTING PHYSICIAN: Dr. Juan Hein REASON FOR CONSULTATION: Atrial fibrillation and flutter. HISTORY OF PRESENT ILLNESS: This is a 77-year-old gentleman who is well known to our service. He hurtado s a history of atrial fibrillation with a large left atrium. He has had 3 left atrial ablation proce dures with the last one including ablation of atypical atrial flutter. He did reasonably well on ant iarrhythmic drugs and anticoagulation. More recently, he has been admitted to the hospital with back discomfort and was found to have a new diagnosis of multiple myeloma. While being admitted, he was noted to have a slow heart rate, but was on a fairly high dose of metoprolol. This was discontinued and he subsequently has had episodes of atrial fibrillation and flutter with relatively rapid ventric ular rates. He is now on an amiodarone drip and his heart rates are in the 100 range for the most pa rt while at rest. We are asked to see him for evaluation of his atrial arrhythmias. PAST MEDICAL HISTORY: Cardiomyopathy, hypertension, hyperlipidemia, atrial fibrillation, status post radiofrequency ablation. PAST SURGICAL HISTORY: Cholecystectomy, knee surgery. SOCIAL HISTORY: He is a nonsmoker. 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 He i s originally from [place] and speaks Portuguese. CURRENT MEDICATIONS: Benazepril, Xarelto, Lipitor, and Toprol which is now on hold. He is currently on amiodarone drip. FAMILY HISTORY: Noncontributory. PHYSICAL EXAMINATION: GENERAL: He is lying flat, in no acute distress. VITAL SIGNS: His heart rate is 103, regular. He is afebrile. His blood pressure is 153/90. His O2 sat is 94. NECK: Reveals no increased JVD. HEART: Regular rate. Normal S1, S2. He has no murmurs, rubs, gallops. LUNGS: Clear to auscultation bilaterally. ABDOMEN: Soft and nontender. EXTREMITIES: Reveal no clubbing, cyanosis, but he does have some evidence of chronic venous stasis d isease and possible edema. Review of his telemetry strips reveal episodes of atrial fibrillation/flutter and some normal sinus r hythm as well. Currently, it appears he is in an atypical atrial flutter. His admission ECG shows s inus rhythm at 60 beats per minute with inverted T waves. LABORATORY: Laboratory studies reveal a high MCV, some slight anemia, a creatinine of 3.04. IMPRESSION: Atrial fibrillation, status post radiofrequency ablation. RECOMMENDATIONS: Mr. Gastelum has had atrial fibrillation and ablation in the past. He currently has atypical atrial flutter, which may be amenable to ablation. However, the patient is quite resistant to having another radiofrequency ablation which I certainly understand. Given the new diagnosis of darnell nava, it may be best to figure out what his overall outlook is prior to any invasive procedures. I n terms of his current status with atrial arrhythmias, I agree with the amiodarone as an antiarrhythm ic drug given his other medical problems such as renal failure. His heart rate when being admitted w as a little bit bradycardic, but I think he can certainly tolerate a reasonable rate control. Certai nly if his heart rate becomes too bradycardic with antiarrhythmic drugs, then it may be reasonable to consider a permanent pacemaker; however, he may require lines to be placed for chemotherapy which ma y impact on the infection risk of a pacemaker. For now I would propose that we continue with the cur rent course of therapy on anticoagulant therapy as well as on amiodarone and give it a little bit mor e time. I suspect that this will do the trick in keeping him either in normal rhythm or well rate co ntrolled. We will also arrange for him to follow up with electrophysiology in the future as an outpa tient.
--- NOTE | 2018-05-04 13:56 | PDOC.PN ---
- Subjective Encounter Start Date: 05/04/18 Encounter Start Time: 13:58 Patient seen and examined today. Admitted for MM w lytic lesions, hyperkalemia and REBECA. He was initially bradycardic but went into A fib w RVR. He was started on amiodarone and converted to sinus rhythm. - Objective Resuscitation Status: Resuscitation Status FULL:Full Resuscitation MAR Reviewed: Yes Vital Signs & Weight: Vital Signs (12 hours) Temp Pulse Pulse Resp BP BP Pulse Ox 05/04/18 11:43 98.3 F 109 H 18 170/81 H 94 L 05/04/18 09:47 118 H 154/82 H 05/04/18 07:55 97.8 F 108 H 18 96 05/04/18 07:52 97.8 F 108 H 18 157/107 H 96 05/04/18 04:00 97.4 F L 113 H 16 158/96 H 93 L Weight Admit Weight 250 lb 8 oz Weight 225 lb 4.8 oz Most Recent Monitor Data Heart Rate from ECG 62 NIBP 151/60 NIBP BP-Mean 91 Respiration from ECG 24 SpO2 96 I&O: 05/03/18 05/04/18 05/05/18 06:59 06:59 06:59 Intake Total 1360 795 Output Total 1475 675 Balance -115 120 Result Diagrams: 05/04/18 05:37 05/04/18 05:37 Phys Exam - Physical Examination Constitutional: NAD HEENT: PERRLA, moist MMs, sclera anicteric, oral pharynx no lesions Neck: supple, full ROM Respiratory: no wheezing, no rales, no rhonchi, clear to auscultation bilateral Cardiovascular: no significant murmur, no rub Slightly tachycardic. Sinus rhythm. Gastrointestinal: soft, non-tender, no distention, positive bowel sounds Musculoskeletal: no edema, pulses present Skin: no rash, normal turgor Dx/Plan (1) Multiple myeloma Code(s): C90.00 - MULTIPLE MYELOMA NOT HAVING ACHIEVED REMISSION Status: Acute Qualifiers: Multiple myeloma remission status: not in remission Qualified Code(s): C90.00 - Multiple myeloma not having achieved remission Comment: Stable. had lytic lesions, hypercalcemia and REBECA. f/u pathology results. (2) A-fib Code(s): I48.91 - UNSPECIFIED ATRIAL FIBRILLATION Status: Acute Comment: Achieving better control. On IV and PO amiodarone. Cardiology on board. (3) REBECA (acute kidney injury) Code(s): N17.9 - ACUTE KIDNEY FAILURE, UNSPECIFIED Status: Acute Comment: Improving. REBECA on ? CKD. Likely from MM Glomerular injury, likely ATN. nephrology on board. recs appreciated. (4) Hypercalcemia Code(s): E83.52 - HYPERCALCEMIA Status: Acute Comment: 2/2 MM. (5) Lytic bone lesions on xray Code(s): M89.9 - DISORDER OF BONE, UNSPECIFIED Status: Acute Comment: 2/2 Multiple Myeloma. Has been started on Dexa by Oncology. (6) Chronic venous stasis Code(s): I87.8 - OTHER SPECIFIED DISORDERS OF VEINS Status: Chronic (7) HTN (hypertension) Code(s): I10 - ESSENTIAL (PRIMARY) HYPERTENSION Status: Chronic Qualifiers: Hypertension type: essential hypertension Qualified Code(s): I10 - Essential (primary) hypertension Comment: Fair control. ACEi held 2/2 REBECA. Continue hydralazine. (8) Bradycardia Code(s): R00.1 - BRADYCARDIA, UNSPECIFIED Status: Resolved Comment: Improving. - Plan cont current plan of care, PT/OT, out of bed/ambulate, DVT proph w/heparin * . Review of Systems - Medications/Allergies Allergies/Adverse Reactions: Allergies Allergy/AdvReac Type Severity Reaction Status Date / Time No Known Drug Allergies Allergy Verified 04/25/18 20:07 Medications: Current Medications Acetaminophen (Tylenol) 650 mg PO Q4H PRN PRN Reason: Headache/Fever or Pain Hydrocodone Bitart/Acetaminophen (Jackpot 5/325) 1 tab PO Q4H PRN PRN Reason: Moderate Pain (4-6) Amiodarone HCl (Cordarone) 400 mg PO BID [facility] Dexamethasone (Decadron) 40 mg PO [facility] Stop: 05/05/18 08:01 Last Admin: 05/04/18 08:26 Dose: 40 mg Docusate Sodium (Colace) 100 mg PO BID [facility] Last Admin: 05/04/18 08:27 Dose: 100 mg Famotidine (Pepcid) 20 mg PO DAILY [facility] Last Admin: 05/04/18 08:27 Dose: 20 mg Guaifenesin/Dextromethorphan (Robitussin Dm) 15 ml PO Q4H PRN PRN Reason: Cough Heparin Sodium (Porcine) (Heparin) 5,000 units SC BID [facility] Last Admin: 05/04/18 08:27 Dose: 5,000 units Hydralazine HCl (Apresoline) 25 mg PO TID [facility] Last Admin: 05/04/18 08:27 Dose: 25 mg Amiodarone HCl 450 mg/Miscellaneous Medication 1 each/ Dextrose/Water 259 mls @ 0 mls/hr IVPB INF PELON; As Directed PRN Reason: Protocol Last Admin: 05/03/18 20:56 Dose: 259 mls Lidocaine (Lidoderm 5% Patch) 1 patch TD DAILY [facility] Last Admin: 05/04/18 08:38 Dose: Not Given Ondansetron HCl (Zofran) 4 mg IVP Q6H PRN PRN Reason: Nausea/Vomiting Sodium Chloride (Flush - Normal Saline) 10 ml IVF Q12HR PELON Sodium Chloride (Flush - Normal Saline) 10 ml IVF PRN PRN PRN Reason: Saline Flush Tramadol HCl (Ultram) 50 mg PO Q6H PRN PRN Reason: Moderate Pain (4-6)
[2018-05-04] MEDS ORDERED: Amiodarone 200 MG TAB PO SCH ×3 (17:30→21:00)
--- NOTE | 2018-05-04 20:16 | PRG ---
DATE OF SERVICE: 05/04/2018 SUBJECTIVE: The patient seems to be doing much better. OBJECTIVE: VITAL SIGNS: Afebrile with temperature 98.3, pulse 109, respiratory rate of 18, O2 sat 94% with a bl ood pressure 154/96. HEENT: Unremarkable. CARDIOVASCULAR: First and second heart sounds were heard. RESPIRATORY: Clear to auscultation. DIGESTIVE: Revealed a benign abdomen with positive bowel sounds. EXTREMITIES: No peripheral edema. SKIN: No new gross rash. LYMPHATICS: No peripheral lymphadenopathy. IMPRESSION: 1. Severe hypercalcemia in the context of malignancy in this case multiple myeloma. This has improv ed. 2. Multiple myeloma. 3. Atrial fibrillation with rapid ventricular response. PLAN: 1. We will continue renal supportive measures. 2. We will monitor the renal function as patient undergoes chemotherapy. 3. Further management will be dependent on the clinical course.
[2018-05-04] MEDS ORDERED: Diltiazem HCl 125 MG, Admixture Fee 1 EACH in Sodium Chloride 0.9% 100 ML IVPB SCH (21:00)
[2018-05-05] MEDS: Dexamethasone 4 MG TAB PO SCH (08:50)
[2018-05-05] MEDS: Docusate 100 MG CAP PO SCH (08:51)
[2018-05-05] MEDS: Famotidine 20 MG TAB PO SCH (08:51)
[2018-05-05] MEDS: Lidocaine 5% Patch TD SCH (08:51)
[2018-05-05] MEDS: hydrALAZINE 25 MG TAB PO SCH (08:51)
[2018-05-05] MEDS ORDERED: Amiodarone 200 MG TAB PO SCH ×2 (09:00)
[2018-05-05 11:22] VITALS: TEMP 97.6
[2018-05-05 13:38] VITALS: BP 183/72
--- NOTE | 2018-05-05 14:47 | CT ---
CT GUIDED BONE MARROW BIOPSY: Date: 04/29/18 HISTORY: Lytic lesions. COMPARISON: CT dated 04/27/18. FINDINGS: The patient was brought to the CT suite. All questions were answered. The patient was prepped and draped in the normal sterile fashion after being in the prone position. I nformed consent was obtained, Timeout was performed. 5 mL of lidocaine was instilled into the superficial and deep soft tissues, as well as along the nicho osteum. Small dermatotomy was made. Using a 14 gauge biopsy set, 10 mL of bone marrow was aspirated. This was given the process safety engineering technologist. Next, a 1.0 cm core of bone was obtained using the dri ll. The patient tolerated the procedure well and without complication. IMPRESSION: Technically successful CT guided bone marrow biopsy.
--- NOTE | 2018-05-05 17:50 | DIS ---
DATE OF ADMISSION: 04/25/2018 DATE OF DISCHARGE: 05/05/2018 DISCHARGE DIAGNOSES: Plasma cell myeloma, atrial fibrillation, acute kidney injury, hypercalcemia, l ytic bone lesions on x-ray, chronic venous stasis, hypertension, and bradycardia. HISTORY OF PRESENT ILLNESS/HOSPITAL COURSE: Mr. Nirav Christopher is a 77-year-old male, who presented to the emergency room and gave a history of falling backwards over the wall and his bathtub, who was very weak and could not get up and he eventually crawled a few inches on his back to reach the living room, which is about 15 feet from his bathroom for nearly 2 hours before he called for help. Since he stays alone. He reports back pain for nearly 20 years or so, but this has been progressively gett ing worse for the last 2 months. EMS came to the house and on arrival, he was at the hospital, he hurtado d multiple imaging studies done, which shows lytic lesions in the bone. His creatinine was greater t merino 2. He had no other complaint of chest pain, palpitation, cough, or expectoration. No prior hist ory of cancer. The patient reported no losing consciousness and he thinks he might have fallen backw ards due to the the first incident. His laboratories revealed a marked hypercalcemia of almost 17, platelet count was 104,000 with a macrocytic anemia. CT of his thoracic spine showed diffuse os seous metastatic process versus myeloma. He also had lytic lesions seen on posterolateral right 2nd rib. Chest x-ray showed mild pulmonary vascular congestion with chronic deformity of the left clavic le. CT brain without contrast showed no acute intracranial process. A CT spine without contrast don e also showed no C-spine fracture with those metastatic lesions involving C7 vertebral body as well a s upper thoracic vertebra. An EKG done showed normal sinus rhythm at 60 beats per minute with poor R-wave progressive. He was a dmitted to telemetry service for severe hypokalemia, likely due to multiple lytic lesions with unknow n primary. He also was treated for his acute kidney injury. Urine protein electrophoresis was obtai naya and he was hydrated with close monitoring. He also received a dose of zoledronic acid for his hy perglycemia. He responded to therapy with serum creatinine improving before discharge. He was seen by multiple specialties with plasma cell myeloma confirmed on bone biopsy. He also developed atrial fibrillation, which alternated with episodes of (bradycardia) for which he was started on IV amiodaro ne and eventually transitioned to p.o. amiodarone. His hypercalcemia resolved with hydration for his lytic lesions he was also started on dexamethasone by Oncology. He was seen by the oncologist PROMOTIONS SPECIALIST be fore discharge and close followup in clinic has been arranged with the patient. During this admissio n, he also had a stay in the CCU due to a code green being called due to patient becoming lethargic a nd bradycardic. He responded to treatment there and was transferred back to the telemetry floor. Of note, the patient has a history of atrial fibrillation with a large left atrium. He has had three l eft atrial ablation procedures with the last one including ablation of atypical atrial flutter and he had done previously while on IV antiarrhythmic drugs and anticoagulation. He was started on Xarelto before discharge from 15 mg daily. Further ablation therapy was resistant by patient. DISCHARGE MEDICATIONS: Amiodarone 400 mg twice a day, hydralazine 25 mg 3 times a day, and Rivaroxab an 15 mg daily. PHYSICAL EXAMINATION GENERAL: He was seen and examined on day of discharge. VITAL SIGNS: Temperature 97.6, heart rate 56, respiratory rate 20, oxygen saturation 95% on room air , and blood pressure 165/77. GENERAL: Not in acute distress, sitting comfortably in bed. HEENT: Normocephalic, atraumatic, anicteric. Moist mucous membranes. RESPIRATORY: Clear breath sounds bilaterally. No wheezes, rales or rhonchi. CARDIOVASCULAR: S1 and S2, regular rate and rhythm. No murmurs, rubs or gallops. MUSCULOSKELETAL: No edema. ABDOMEN: Soft, nontender, nondistended. Bowel sounds normoactive. SKIN: Warm, dry, well perfused. SKIN: No rashes or lesions. NEUROLOGIC: Alert and well oriented. No focal deficit. PSYCHIATRIC: Normal mood and affect. LABORATORY DATA: Sodium 142, potassium 3.7, chloride 110, carbon dioxide 23, BUN 64, creatinine 2.3, glucose 156, calcium 8.9. WBC 8.8, hemoglobin 12.5, platelet count 157. IMAGING: Multiple images done on examination including a CT scan of the brain, cervical and thoracic spine from a renal ulcer trial and chest x-ray. A repeat CT chest and a bone biopsy. DIET: Heart healthy, renal. CONDITION AT DISCHARGE: Stable and improved. CONSULTS: Cardiology EP/Electrophysiology, Nephrology, Oncology, Pulmonology. CARE GOALS: To resume activities as tolerated and as directed by PT/OT, who saw the patient and jose mmended outpatient physical therapy. The patient was not amenable to going to a subacute rehabilitat ion facility or inpatient rehabilitation. DISCHARGE TIME: 55 minutes including chart review and documentation. CARE GOALS: To follow up with his primary care physician within 1 week of discharge to repeat labs.
[2018-05-05] MEDS ORDERED: Rivaroxaban 10 MG TAB PO SCH (18:00)
--- NOTE | 2018-05-06 09:31 | PRG ---
DATE OF SERVICE: 05/05/2018 SUBJECTIVE: Patient was seen and examined. PHYSICAL EXAMINATION: VITAL SIGNS: Afebrile with temperature 97.6, pulse 56, respiratory rate of 20, O2 sat 95%, blood pre ssure 155/77. HEENT: Unremarkable with moist oral mucosa. No conjunctival injection or icterus. CARDIOVASCULAR: First and second heart sounds were heard. RESPIRATORY: Clear to auscultation. DIGESTIVE: Revealed a benign abdomen. EXTREMITIES: No peripheral edema. SKIN: No new gross rash. LYMPHATICS: No peripheral lymphadenopathy. IMPRESSION: 1. Acute on chronic kidney disease, which is much improved. 2. Malignant hypercalcemia in the context of multiple myeloma. 3. Recent diagnosis of multiple myeloma. PLAN: 1. From all indications, patient likely to be discharged today. However, close Nephrology followup strongly recommended. We will advise this patient to follow up with me in about 2 weeks. 2. Further management to be dependent on a clinical course.
== END 2018-05-05 13:45 | disposition home or self-care (01) | DRG 841 ==
LOC: ERS 14:54 → 2NO 17:01 → CCU 04-27 10:59 → IMCU/EMU 04-29 06:27 → 2NO 04-29 16:59
PROVIDERS: ADMIT Internal Medicine; ATTEND Internal Medicine
PROC: 07DQ3ZX Extraction of Sternum Bone Marrow, Percutaneous Approach, Diagnostic (ICD-10-PCS; principal; 2018-04-29)
DX: C90.00 Multiple myeloma not having achieved remission (principal); N17.9 Acute kidney failure, unspecified; I48.4 Atypical atrial flutter; I42.8 Other cardiomyopathies; N18.4 Chronic kidney disease, stage 4 (severe); C79.51 Secondary malignant neoplasm of bone; E86.0 Dehydration; I12.9 Hypertensive chronic kidney disease with stage 1 through stage 4 chronic kidney disease, or unspecified chronic kidney disease; E78.5 Hyperlipidemia, unspecified; Z91.81 History of falling; E83.52 Hypercalcemia; Z79.01 Long term (current) use of anticoagulants; I87.8 Other specified disorders of veins; R00.1 Bradycardia, unspecified; I48.2 Chronic atrial fibrillation; E87.6 Hypokalemia
CPT/HCPCS: 20225; 36415; 36416; 70450; 71045; 71250; 72125; 72128; 76770; 77002; 80048; 80053; 80076; 81001; 82040; 82550; 82553; 82607; 82728; 82746; 82805; 83540; 83550; 83615; 83735; 84153; 84154; 84165; 84166; 84443; 84484; 85007; 85025; 85027; 85097; 85610; 85730; 88184; 88237; 88264; 88280; 88305; 88311; 88313; 88341; 88342; 88365; 90471; 90670; 93005; 93010; 93306; 94760; 96360; A4216; G0009; G0103; G8978-GP-CM; G8979-GP-CJ; G8987-GO-CL; G8988-GO-CJ; J0282; J1644; J1650; J1940; J2250; J2405; J3010; J3480; J3489; J7050; J7070; J8540

== ENCOUNTER 2018-06-18 10:32 | Day surgery (SDC) | payer MEDICARE ==
[2018-06-17 16:51] VITALS: BMI 29.4
[2018-06-18 11:35] LABS: Anion Gap 13 mmol/L (10-20); BUN (Urea Nitrogen) 24 mg/dL (8.4-25.7); Calc. Creatinine Clearance 66 mL/min (70-130); Calcium 8.4 mg/dL (7.8-10.44); Carbon Dioxide 22 mmol/L (23-31); Chloride 106 mmol/L (98-107); Estimated GFR-MDRD 55; Glucose 91 mg/dL (83-110); Potassium 3.6 mmol/L (3.5-5.1); Sodium 137 mmol/L (136-145)
[2018-06-18] MEDS ORDERED: PROPOFOL 0 ML ONE (12:16)
== END 2018-06-18 13:28 | disposition home or self-care (01) ==
LOC: SDC 10:32
PROVIDERS: ATTEND Internal Medicine Cardiovascular Disease
DX: I48.0 Paroxysmal atrial fibrillation (principal); E78.5 Hyperlipidemia, unspecified; I10 Essential (primary) hypertension; I42.9 Cardiomyopathy, unspecified; Z53.8 Procedure and treatment not carried out for other reasons
CPT/HCPCS: 80048; 93005; 93010; J2704

== ENCOUNTER 2018-07-23 15:25 | Inpatient (IN) | payer MEDICARE ==
[2018-07-23 16:37] LABS: Bilirubin Negative (Negative); Blood, Urine Moderate (Negative); Clarity TURBID (Clear); Glucose, Urine (Dipstick) Negative (Negative); Leukocyte Large (Negative); Nitrite Negative (Negative); Protein, Urine (Dipstick) 100 mg/dL (Neg-Trace); Specific Gravity, Urine 1.015 (1.002-1.036)
[2018-07-23 16:39] LABS: #Eosinphils 0.1 thou/uL (0.0-0.7); #Lymphocytes 0.8 thou/uL (1.20-3.40); #Monocytes 1.1 thou/uL (0.11-0.59); %Basophils 0.1 % (0.0-1.0); %Eosinophils 0.6 % (0.0-10.0); %Lymphocytes 7.8 % (21.0-51.0); %Monocytes 11.4 % (0.0-10.0); %Neutrophils 80.1 % (42.0-75.0); Hemoglobin 9.3 g/dL (14.0-18.0); Mean Corpuscular HGB CONC 31.2 g/dL (32.0-36.0); Mean Corpuscular Hemoglobin 31.5 pg (27.0-31.0); Mean Platelet Volume 12.7 fL (7.4-10.4); Platelet Count 72 thou/uL (130-400); RBC Distribution Width 17.2 % (11.5-14.5); Red Blood Cell (RBC) Count 2.94 mill/uL (4.70-6.10)
--- NOTE | 2018-07-23 16:40 | RAD ---
PORTABLE CHEST 1 VIEW: Date: 07/23/18 Time: 1549 hours HISTORY: Dyspnea, bilateral lower extremity swelling. FINDINGS/IMPRESSION: Comparison made with exam of 04/26/18. The heart is enlarged. There is pulmonary vascular congestion. There is a small right pleural effusio n. No pneumothoraces are identified. POS: [facility]
[2018-07-23 16:44] LABS: Bacteria/HPF Rare-Few HPF (None Seen); Hyaline Casts/LPF 0-3 HYALINE CAST LPF (0-3 Hyaline); Pathc Cast-AUWi Flag 0.93 (0-2.49); RBC/HPF GREATER THAN 50-TNTC HPF (0-3); Squamous Epithelial None Seen HPF (0-3)
[2018-07-23 16:45] LABS: ALT (SGPT) 27 U/L (8-55); AST (SGOT) 21 U/L (5-34); Albumin 3.5 g/dL (3.4-4.8); Alkaline Phosphatase 77 U/L (40-150); Anion Gap 12 mmol/L (10-20); BUN (Urea Nitrogen) 23 mg/dL (8.4-25.7); CK (CPK) 47 U/L (30-200); Calc. Creatinine Clearance 0 mL/min (70-130); Calcium 8.8 mg/dL (7.8-10.44); Carbon Dioxide 25 mmol/L (23-31); Chloride 107 mmol/L (98-107); Estimated GFR-MDRD 56; Globulin 2.8 g/dL (2.4-3.5); Glucose 95 mg/dL (83-110); Potassium 4.7 mmol/L (3.5-5.1); Protein, Total 6.3 g/dL (5.8-8.1); Sodium 139 mmol/L (136-145)
[2018-07-23 16:49] LABS: CKMB 2.9 ng/mL (0-6.6); Troponin I 0.025 ng/mL (< 0.028)
[2018-07-23 16:51] LABS: Anisocytosis SLIGHT = 6-15 cells (100X) (0-5/hpf); Elliptocytes SLIGHT = 2-5 cells (100X) (0-1/hpf); Large Platelets SLIGHT; MDiff Complete? YES; Ovalocytes SLIGHT = 2-5 cells (100X) (0-1/hpf); PLT Morphology Comment Appears Decreased; Poikilocytosis SLIGHT = 6-15 cells (100X) (0-5/hpf); Polychromasia SLIGHT = 2-3 cells (100X) (0-2/hpf)
[2018-07-23] MEDS ORDERED: Nitroglycerin 2% Ointment 1 INCH/1 GM Packet ONE (17:49)
[2018-07-23] MEDS ORDERED: Furosemide 40 MG/4 ML VIAL ONE (17:49)
[2018-07-23 19:52] LABS: Troponin I 0.037 ng/mL (< 0.028)
[2018-07-23 22:39] LABS: Troponin I 0.036 ng/mL (< 0.028)
--- NOTE | 2018-07-23 23:42 | HP ---
DATE OF ADMISSION: 07/23/2018 PRIMARY CARE PROVIDER: Dr. Sukh Michel. CHIEF COMPLAINT: Lower abdominal and extremity swelling. HISTORY OF PRESENT ILLNESS: This is a 77-year-old male who presents to [facility] and transferred from outpatient wound care services for increasing lower extremity edema with pr ogressive swelling of his abdomen with difficulty and moving his lower extremities. The patient stat es he has longstanding history of lower extremity edema and chronic lymphedema, currently managed wit h compression dressings changed every 3 days at the outpatient wound care services. The patient stat es he has had the leg wraps applied over the last month with some improvement. The patient had notic ed increasing leaking and weeping on the lower extremity compression dressings as well as increasing abdominal swelling. The patient states he is unable to put his regular pants on due to the large gir th of his abdomen and thinks he has gained approximately 3 inches in his waist over the last several days. The patient denied any specific increased shortness of breath, chest pain, fever, chills, or e xposure history. The patient does admit associated decreased urination and complete emptying of his bladder. The patient has noticed increased edema of the scrotal area as well. The patient underwent general evaluation in the emergency room including chest imaging, showing pulmonary vascular promine nce with right pleural effusion noted. The patient underwent placement of a Fisher catheter in the em ergency room with return of dark-juan urine. The patient was referred to the hospitalist service fo r further evaluation. PAST MEDICAL HISTORY: 1. Multiple myeloma, on 2-week cycles of oral chemotherapy, type unknown. 2. Chronic venous stasis. 3. Chronic lymphedema with compression wraps in lower extremities. 4. Hypertension. 5. History of atrial fibrillation, on chronic anticoagulation with Xarelto. 6. Severe tricuspid valve regurgitation. PAST SURGICAL HISTORY: 1. Status post left knee surgery with partial meniscectomy. 2. Status post cholecystectomy. 3. Status post left foot surgery. 4. Status post TURP for prostate hyperplasia. 5. Status post cardiac ablation due to atrial fibrillation. CURRENT MEDICATIONS: Based on prior admission history in 03/2018 and 05/2018. 1. Xarelto 15 mg p.o. daily. 2. Amiodarone 400 mg p.o. b.i.d. 3. Benazepril 40 mg p.o. daily. 4. Toprol-XL 100 mg p.o. daily. 5. Hydralazine 25 mg p.o. t.i.d. Active medication apparently Xarelto, but will need to be confirmed. Also taking chemotherapy medica tion for multiple myeloma, unknown type. ALLERGIES: No known drug allergies. FAMILY HISTORY: Mother of stroke at the age of 80 years. Father at the age of 90 years fr om complications of old age. Two living sisters in [place]. The patient originally from [place]. SOCIAL HISTORY: The patient denies any alcohol, tobacco, or illicit drug use. 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 Lives independently. Ambulates with a cane or walker over the last 2 months. REVIEW OF SYSTEMS: The following complete review of systems was negative, unless otherwise mentioned in the HPI or below: Constitutional: Weight loss or gain, ability to conduct usual activities. Sk in: Rash, itching. Eyes: Double vision, pain. ENT/Mouth: Nose bleeding, neck stiffness, pain, te nderness. Cardiovascular: Palpitations, dyspnea on exertion, orthopnea. Respiratory: Shortness of breath, wheezing, cough, hemoptysis, fever or night sweats. Gastrointestinal: Poor appetite, abdom inal pain, heartburn, nausea, vomiting, constipation, or diarrhea. Genitourinary: Urgency, frequenc y, dysuria, nocturia. Musculoskeletal: Pain, swelling. Neurologic/Psychiatric: Anxiety, depressio n. Allergy/Immunologic: Skin rash, bleeding tendency. PHYSICAL EXAMINATION: VITAL SIGNS: Currently, blood pressure 154/71, pulse 52, respiratory rate 20, temperature 98 degrees Fahrenheit, O2 saturation 97% on room air. GENERAL APPEARANCE: This is a 77-year-old male, alert, and oriented x3, pleasant, conversant, in no acute distress. HEENT: Pupils are equal, round, and reactive to light and accommodation. Extraocular muscles are in tact. No scleral icterus, no conjunctival injection. Nares patent. OP is clear. Teeth in fair rep air. NECK: Supple. No cervical adenopathy, no thyromegaly, no carotid bruits, no JVD appreciated. Cervi yiar spine with full active and passive range of motion. No meningeal signs appreciated. CHEST: Diminished breath sounds in the right base. Otherwise, clear to auscultation bilaterally. CARDIOVASCULAR: S1, S2 with a 1-2/6 systolic ejection murmur in the right upper sternal border. ABDOMEN: Obese. Landmarks are difficult to palpate due to patient's body habitus. No rebound or gu arding appreciated. Bowel sounds are positive in all four quadrants. Pitting edema in the abdomen t o the upper quadrants. GENITOURINARY: Large symmetric scrotal edema with Fisher catheter in place. EXTREMITIES: Bilateral pitting edema to the hips with compression wraps to the lower extremities bel ow-the-knee with soiled and moist saturation of the dressings. Chronic venous stasis changes noted o f skin on the lower extremities. Pulses are palpable at the popliteal arteries bilaterally. NEUROLOGIC: Cranial nerves II through XII are grossly intact. No focal or lateralizing signs apprec iated. PERTINENT LABORATORY AND X-RAY FINDINGS: Sodium 139, potassium is 4.7, chloride 107, CO2 of 25, BUN 23, creatinine 1.25. Estimated GFR 56, glucose 95, calcium 8.8, total bilirubin 2.0, AST 21, ALT 27, alkaline phosphatase 77, total CK 47, troponin I negative x1. BNP 655, albumin 3.5. CBC showed a w margarito blood cell count of 10.0, hemoglobin 9.3, hematocrit 30, MCV 101, platelet count 72 with 80% jazmin trophils. Urinalysis positive for moderate blood, large leukocyte esterase with greater than 50 to t oo numerous to count rbc's per high power field and greater than 50 to too numerous to count wbc's pe r high powered field. Portable chest x-ray dated 07/23/2018 showed right pleural effusion with pulmo nary edema. EKG showing sinus mechanism, heart rates in the 50s. No acute ST-T wave changes appreci ated. ASSESSMENT AND PLAN: 1. Anasarca. The patient will be admitted to the telemetry unit. Suspect multifactorial process gi luis enrique patient's history of multiple myeloma with current chemotherapy as well as chronic venous stasis changes, severe mitral valve regurgitation, decreased mobilization and urinary retention. We will in itiate Lasix 40 mg IV b.i.d. Continue Fisher catheter for monitoring of accurate outputs. Review of most recent 2D transthoracic echocardiogram in 03/2018, showing preserved ejection fraction of 50-55% . 2. Chronic venous stasis with lymphedema. We will consult wound care services for daily assessment of lower extremities as well as exchange of current compression dressings. Elevate lower extremities while in bed. Continue Lasix IV as outlined in #1. 3. Urinary retention. Secondarily to a large scrotal edema, we will continue Fisher catheter for dec ompression of the bladder. Continue treatment as outlined in #1. 4. Urinary tract infection. Suspected given patient's urinalysis and urinary retention. We will co ntinue Rocephin 2 grams IV q.24 hours. Pending final urine culture results. 5. Multiple myeloma. Currently receiving chemotherapy orally. We will confirm chemotherapy regimen in the a.m. 6. Macrocytic anemia. Suspect secondarily to multiple myeloma. We will continue serial CBC monitor ing. No current evidence to suggest acute blood loss. Check B12 and folate level in the a.m. 7. Prophylaxis. Hold SCDs due to lower extremity edema. Lovenox 40 mg subcutaneously daily. Pepci d 20 mg p.o. b.i.d. 8. Code status is FULL. Surrogate medical decision maker not identified. The patient's medical pow er of processor [employer] is his sister.
[2018-07-24] MEDS ORDERED: hydrALAZINE 20 MG/ML VIAL SLOW IVP PRN (00:15)
[2018-07-24] MEDS ORDERED: Ondansetron ODT 4 MG TAB PO PRN (00:15)
[2018-07-24] MEDS ORDERED: Ondansetron HCl/PF 4 MG/2 ML Vial IVP PRN (00:15)
[2018-07-24] MEDS ORDERED: Furosemide 40 MG/4 ML VIAL SLOW IVP SCH (00:15)
[2018-07-24] MEDS ORDERED: Acetaminophen 500 MG TAB PO PRN (00:15)
[2018-07-24] MEDS: Furosemide 40 MG/4 ML VIAL SLOW IVP SCH ×2 (05:29→14:44)
[2018-07-24 05:42] LABS: ALT (SGPT) 23 U/L (8-55); AST (SGOT) 19 U/L (5-34); Albumin 2.9 g/dL (3.4-4.8); Alkaline Phosphatase 62 U/L (40-150); Anion Gap 13 mmol/L (10-20); BUN (Urea Nitrogen) 23 mg/dL (8.4-25.7); Bilirubin, Total 1.8 mg/dL (0.2-1.2); Calc. Creatinine Clearance 81 mL/min (70-130); Calcium 8.4 mg/dL (7.8-10.44); Carbon Dioxide 24 mmol/L (23-31); Chloride 107 mmol/L (98-107); Estimated GFR-MDRD 59; Globulin 2.6 g/dL (2.4-3.5); Glucose 108 mg/dL (83-110); Protein, Total 5.5 g/dL (5.8-8.1); Sodium 140 mmol/L (136-145)
[2018-07-24 05:43] LABS: Band 15 % (5-11); Eosinophils 1 % (0-10); Lymphocytes 13 % (21-51); MDiff Complete? YES; Mean Corpuscular HGB CONC 31.9 g/dL (32.0-36.0); Mean Corpuscular Hemoglobin 32.1 pg (27.0-31.0); Mean Platelet Volume 13.2 fL (7.4-10.4); Monocytes 8 % (0-10); Neutrophil 63 % (42-75); PLT Morphology Comment Appears Decreased; Platelet Count 55 thou/uL (130-400); Red Blood Cell (RBC) Count 2.48 mill/uL (4.70-6.10); White Blood Cell (WBC) Count 7.8 thou/uL (4.8-10.8)
[2018-07-24] MEDS: cefTRIAXone\\ROCEPHIN 2 GM in Sodium Chloride 0.9% 100 ML IVPB SCH (08:49)
[2018-07-24] MEDS ORDERED: Sodium Chloride 0.9% 10 ML ONE (08:54)
--- NOTE | 2018-07-24 13:57 | PDOC.PN ---
- Subjective Encounter Start Date: 07/24/18 Encounter Start Time: 13:40 Subjective: f/u for anasarca,LE edema on current Lasix with >5L diuresed in last 24h -: Feels ok overall. No SOB, fever. - Objective Resuscitation Status: Resuscitation Status FULL:Full Resuscitation MAR Reviewed: Yes Vital Signs & Weight: Vital Signs (12 hours) Temp Pulse Resp BP Pulse Ox 07/24/18 11:27 97.8 F 46 L 20 142/60 H 95 07/24/18 08:47 97.7 F 50 L 20 120/56 L 95 07/24/18 03:18 97.5 F L 52 L 16 103/50 L 94 L Weight Admit Weight 245 lb Weight 245 lb I&O: 07/23/18 07/24/18 07/25/18 06:59 06:59 06:59 Intake Total 300 Output Total 5200 Balance -4900 Result Diagrams: 07/24/18 04:29 07/24/18 04:29 Additional Labs: Laboratory Tests 07/23/18 07/24/18 16:13 04:29 Hgb 9.3 L Hct 29.7 L Plt Count 72 L Band Neuts % (Manual) 15 H EKG Reviewed by me: Yes (Tele - A-fib in 50's) Phys Exam - Physical Examination Constitutional: NAD HEENT: PERRLA, sclera anicteric, oral pharynx no lesions Neck: no nodes, no JVD, supple, full ROM diminished in R base Respiratory: no wheezing, no rales, no rhonchi S1, S2 Cardiovascular: no significant murmur, no rub, irregular + pitting edema Gastrointestinal: soft, non-tender, no distention, positive bowel sounds pitting edema to mid-thighs compression wraps on BLE's Musculoskeletal: pulses present Neurological: normal sensation, moves all 4 limbs Psychiatric: normal affect, A&O x 3 Skin: no rash, normal turgor, cap refill <2 seconds Dx/Plan (1) Anasarca Code(s): R60.1 - GENERALIZED EDEMA Status: Acute Comment: Improved, continue Lasix 40mg IV BID (2) Urinary retention Code(s): R33.9 - RETENTION OF URINE, UNSPECIFIED Status: Acute Comment: Multifactorial, continue Fisher catheter for decompression, consult Urology for evaluation (3) Chronic venous stasis Code(s): I87.8 - OTHER SPECIFIED DISORDERS OF VEINS Status: Chronic Comment : WCT for local dressings, Lasix IV as outlined in #1 (4) UTI (urinary tract infection) Status: Acute Comment: Suspected, continue Rocephin 2gm IV daily, await final Ucx results (5) A-fib Code(s): I48.91 - UNSPECIFIED ATRIAL FIBRILLATION Status: Acute Comment: Chronic, rate-controlled, continue Amiodarone 200mg daily (6) Multiple myeloma Code(s): C90.00 - MULTIPLE MYELOMA NOT HAVING ACHIEVED REMISSION Status: Acute Qualifiers: Multiple myeloma remission status: not in remission Qualified Code(s): C90.00 - Multiple myeloma not having achieved remission Comment: Consult medical oncology for resumption of chemotherapy regimen (7) Gross hematuria Status: Acute Comment: Suspect multifactorial given Fisher catheter placement, thrombocytopenia and Xarelto, consult Urology service, continue Fisher catheter - Plan continue antibiotics, 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
[2018-07-24] MEDS: Atorvastatin Calcium 20 MG TAB PO SCH (20:52)
--- NOTE | 2018-07-24 20:57 | CON ---
DATE OF CONSULTATION: 07/24/2018 REASON FOR CONSULTATION: Multiple myeloma. HISTORY OF PRESENT ILLNESS: Mr. Gastelum is a pleasant 77-year-old gentleman, who was diagnosed in 2017 with multiple myeloma. He was started on treatment with Velcade, Revlimid, and dexamethasone. He has slowly improved over the last several months. He has a history of chronic venous stasis with bilateral lower extremity edema. He sees wound care for this. He saw Dr. Grewal on 07/13/2018, he was tolerating chemotherapy well. He had no myelosuppression from his current treatment. He was at wound care yesterday and had difficulty moving his lower extremities. So he was sent to the emergenc y room for evaluation. A chest x-ray showed enlarged heart with pulmonary vascular congestion. Ther e was a small right pleural effusion. The patient has been diuresed over the last 24 hours with appr oximately 5 liters of urinary output. A CBC on admission showed a platelet count of 72,000. He had a Fisher catheter placed with a traumatic insertion in his hematuria. He denies any complaints at thi s time. He is feeling well. He is in the middle of his 2 week Revlimid course with his medication w as left at home. His last dose was yesterday. PAST MEDICAL HISTORY: 1. [place] multiple myeloma. 2. Hypertension. 3. Congestive heart failure. 4. Tricuspid insufficiency. 5. Atrial fibrillation. 6. Chronic venous stasis in lower extremities. 7. Acid reflux. PAST SURGICAL HISTORY: 1. Cholecystectomy. 2. Knee surgery. 3. Foot surgery. ALLERGIES: No known drug allergies. HOME MEDICATIONS: 1. Amiodarone 200 mg daily. 2. Atorvastatin 20 mg daily. 3. Velcade weekly. 4. Dexamethasone 40 mg once weekly with Velcade. 5. Lasix 40 mg daily. 6. Revlimid 10 mg daily. 7. Xarelto 20 mg daily. 8. Valacyclovir 500 mg daily. 9. Zometa q. 3 months. FAMILY HISTORY: No history of malignancy. SOCIAL HISTORY: Single, has no children. He lives alone. 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 No alcohol, to bacco or illicit drug use. REVIEW OF SYSTEMS: Twelve-point review of systems is negative except for noted in HPI. PHYSICAL EXAMINATION: VITAL SIGNS: Temperature is 97.8, pulse is 46, respiratory rate 20, BP is 142/60, he is 95% on room air. GENERAL: Well-developed, well-nourished male in no acute distress. HEENT: Normocephalic, atraumatic. Pupils equal and reactive to light. NECK: Supple. CARDIOVASCULAR: Regular rate and rhythm. LUNGS: Clear. ABDOMEN: Soft, nontender, bowel sounds are positive. EXTREMITIES: He has bilateral lower extremity edema significantly improved since last seen in the in. He has post-postphlebitic syndrome. SKIN: No rash. NEUROLOGIC: Nonfocal. PSYCHIATRIC: The patient is alert and oriented and appropriate. PERTINENT LABORATORY AND X-RAYS: Current WBCs are 7.8, hemoglobin 8.0, hematocrit 24.9, platelet cou nt 55,000, 63% neutrophils, 15% bands, 13% lymphocytes. Sodium is 140, potassium 4.0, chloride 107, CO2 is 24, BUN is 23, creatinine 1.20, calcium is 8.4, bilirubin is 1.8, AST is 19, ALT is 23, alkali ne phosphatase is 62, CK-MB is 2.9, troponin 0.036. BNP is 655.3. Serum total protein 5.5, albumin 2.9, globulin 2.6. Urine is negative for bacteria. ASSESSMENT: 1. Multiple myeloma. 2. Thrombocytopenia secondary to chemo. 3. Chronic anemia with possible acute hematuria. 4. Chronic venous stasis with bilateral lower extremity edema. DISCUSSION: We will hold the Revlimid while patient is in the hospital. He has had no issues with l ow platelets, until this cycle. We will monitor his CBC. His baseline hemoglobin is around 8.5. No indication for transfusion at this time. He is due for Velcade shot on Friday, which will be given in this facility if he is still here. Otherwise, he will come to the clinic as scheduled. Thank you for the consult. We will follow along with this hospitalization.
--- NOTE | 2018-07-24 23:53 | CON ---
DATE OF CONSULTATION: 07/24/2018 HISTORY OF PRESENT ILLNESS: This is a 77-year-old male, I was asked to see today, because of hematur ia and urinary tract infection. He was admitted yesterday by the Hospitalist team. He had lower ext remity swelling and some lower abdominal swelling and scrotal and penile swelling. He was also found to have pyuria and microscopic hematuria. He had been having some difficulty emptying. A Fisher cat heter was placed. At some point, I know they did an in and out catheterization in the emergency room and got 400 mL of urine and it does not sound like that catheter was left indwelling, although he do es have an indwelling catheter currently. The urinalysis from that catheterization showed greater th an 50 white cells and greater than 50 red cells. There were very rare bacteria that were seen. His creatinine on admission was 1.25. It is 1.2 this morning. His hemoglobin is 9.3 at 8:00 this mornin g. His white count has been normal. His platelet count is low, 72 yesterday and 55 today. His urin e is grossly bloody at this point. He has had a prostate procedure to help with urination done 6-7 y ears ago in [place] at April. I do not know if this was a laser procedure or TURP or even a radiofrequency ablation. He had bleeding after that, but he has not had bleeding since. He has bee n having some burning and discomfort and hesitancy and frequency with urination for the last few days before coming in. He has not had a fever or chill currently. PAST MEDICAL HISTORY: He has got multiple myeloma. He sees Dr. Grewal and is under treatment for t hat. He has chronic lower extremity edema and venous stasis. He has hypertension. He has atrial fi brillation and he is on Xarelto. He has some tricuspid valve disease. PAST SURGICAL HISTORY: He has had a left knee procedure, cholecystectomy, left foot procedure, the p rostate procedure 6 years to 7 years ago in [place], and he has had a cardiac ablation. ROUTINE MEDICATIONS: Amiodarone, benazepril, Toprol, hydralazine, and Xarelto. ALLERGIES: He has no known drug allergies. SOCIAL HISTORY: He does not smoke nor has he ever smoked. PHYSICAL EXAMINATION: On exam, he has venous stasis changes from his knees to his ankles. He has ed artie up to his buttocks. He has got penile edema. He is not circumcised. Meatus and glans are ani l. He has had a catheter in place. Catheter appears to be draining well. The urine is grossly bloo dy, but you can see through it in the tubing. Testicles are descended without mass or tenderness. Mejia julein does have some scrotal edema, but not bad compared to the edema of the lower extremities. I am ass uming a urine culture has been sent, I hoping it has. There is nothing under micro now, but this is often the case where it takes a day or 2 for it to show up. He is currently on Rocephin and I believ e that was started yesterday. We will hopefully get a urine culture report, at least preliminary, to andrés. He has been afebrile while in the hospital. It looks like they have held his blood thinner for the time being. On looking back to some old records on him, I found that he did have a renal ult rasound done earlier this year that would have been in March and that showed normal kidneys without mas s, stone, or hydronephrosis. There was a little bit of renal atrophy. IMPRESSION AND PLAN: 1. Difficulty with urination. I do not know if this was related to the edema that he had or maybe j ust benign prostatic hyperplasia. 2. Possible urinary tract infection. He is on antibiotics. He is afebrile. His white count has be en normal. We will see what his culture shows. 3. Gross hematuria, on a blood thinner, blood thinner appears to have been held. I will go ahead an d watch him for 2-3 days to see if this hematuria probably will resolve. He will probably need offic e cystoscopy at some point. He can do it here in the OR if the urine does not clear over the next 2- 3 days. He has had an upper tract study with a renal ultrasound. I do not know at this point that mejia julien needs to repeat a renal ultrasound or do a CAT scan where the ultrasound was normal, just 2 or 3 mo nths ago. We will leave the catheter in for the time being. He does have his scrotum artery elevate d. That will help with some of the edema and we will follow along with you while he is in the hospit al.
--- NOTE | 2018-07-25 00:09 | CON ---
DATE OF CONSULTATION: 07/24/2018 HISTORY: Ashwin Gastelum is a 77-year-old male who has been followed by Dr. Hein for many years. In 2005, he was found to have a cardiomyopathy. He underwent cardiac catheterization and was found to have normal coronary arteries. He also has history of paroxysmal atrial fibrillation as well as episodes of bradycardia and has been on amiodarone. He also underwent Lexiscan Cardiolite test in 01/2018, which was normal and he had an ejection fraction of 45% on that test. He also has longstanding lower extremity edema nad this has significantly increased over the past week. He came to the emergency room for further treatment of this. He denies any chest discomfort or shortness of breath. He has been diuresed at 5200 mL thus far today and states that he feels much better. PAST MEDICAL HISTORY: Cardiomyopathy, hypertension, hyperlipidemia, history of atrial fibrillation, history of multiple myeloma currently undergoing treatment , chronic lymphedema, severe tricuspid regurgitation. OPERATIONS: Cholecystectomy, left foot surgery, left knee surgery, TURP, and ablation for atrial fibrillation. MEDICATIONS: Xarelto 15 daily, amiodarone 200 mg daily, benazepril 40 daily, Toprol 100 daily, hydralazine 25 t.i.d., furosemide 40 mg p.r.n. ALLERGIES: None. SOCIAL HISTORY: He does not smoke or drink. 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 REVIEW OF SYSTEMS: Twelve-point review of systems, otherwise unremarkable. PHYSICAL EXAMINATION: VITAL SIGNS: 130/58, pulse of 53 now. At times on the monitor, he is in sinus rhythm and sinus arrhythmia and other times in atrial fibrillation at times with slow ventricular response. HEENT: PERRL. NECK: Supple. CHEST: Clear. CARDIAC: S1, S2 normal without any S3, S4, or murmurs. ABDOMEN: Somewhat distended. EXTREMITIES: Revealed 3-4+ edema with cracking of the skin. NEUROLOGIC: Grossly intact. LABORATORY DATA: EKG revealed sinus bradycardia with rate of 54 per minute, low voltage. Hemoglobin 8.0, hematocrit 24.9, white count 7800, platelets 55, 000. Sodium 140, potassium 4.0, chloride 107, carbon dioxide 24, BUN 23, creatinine 1.20. BNP 655.3, troponin I up to 0.037. Most recent echocardiogram on 04/26/2018, which revealed ejection fraction of 50%-55% with mild mitral regurgitation, aortic valvular sclerosis, and trivial tricuspid regurgitation. IMPRESSION: 1. Generalized anasarca with increased lower extremity edema and increased abdominal girth. 2. Lymphedema, chronic venous stasis. 3. Multiple myeloma, currently undergoing chemotherapy. 4. Anemia, thrombocytopenia. 5. History of paroxysmal atrial fibrillation as well as bradycardia at times when he is in atrial fibrillation. 6. History of cardiomyopathy; however, most recent ejection fraction was normal. 7. History of normal coronary arteries in 2005 and a normal Lexiscan Cardiolite in 01/2018. PLAN: Patient will continue to be diuresed. At the present time, we would continue the amiodarone 200 mg daily. With his thrombocytopenia, anticoagulation with Xarelto has been held. MTDD
[2018-07-25 05:28] LABS: Anion Gap 11 mmol/L (10-20); BUN (Urea Nitrogen) 21 mg/dL (8.4-25.7); Calc. Creatinine Clearance 82 mL/min (70-130); Calcium 7.9 mg/dL (7.8-10.44); Carbon Dioxide 28 mmol/L (23-31); Chloride 106 mmol/L (98-107); Estimated GFR-MDRD 60; Glucose 95 mg/dL (83-110); Potassium 3.7 mmol/L (3.5-5.1); Sodium 141 mmol/L (136-145)
[2018-07-25] MEDS: Furosemide 40 MG/4 ML VIAL SLOW IVP SCH ×2 (05:52→14:18)
[2018-07-25 06:01] LABS: Band 3 % (5-11); Hemoglobin 8.4 g/dL (14.0-18.0); Hypochromia SLIGHT = 6-15 cells (100X) (0-5/hpf); Lymphocytes 6 % (21-51); MDiff Complete? YES; Mean Corpuscular HGB CONC 32.3 g/dL (32.0-36.0); Mean Corpuscular Hemoglobin 32.1 pg (27.0-31.0); Mean Corpuscular Volume 99.4 fL (78.0-98.0); Mean Platelet Volume 13.1 fL (7.4-10.4); Monocytes 4 % (0-10); Neutrophil 87 % (42-75); PLT Morphology Comment Appears Decreased; Platelet Count 59 thou/uL (130-400); RBC Distribution Width 17.1 % (11.5-14.5); Red Blood Cell (RBC) Count 2.62 mill/uL (4.70-6.10)
[2018-07-25] MEDS: Amiodarone 200 MG TAB PO SCH (09:01)
[2018-07-25] MEDS: valACYclovir 500 MG TAB PO SCH (09:02)
[2018-07-25] MEDS: Famotidine 20 MG TAB PO SCH ×2 (09:02→20:48)
[2018-07-25] MEDS: cefTRIAXone\\ROCEPHIN 2 GM in Sodium Chloride 0.9% 100 ML IVPB SCH (09:07)
--- NOTE | 2018-07-25 10:53 | EKG ---
Test Reason : Blood Pressure : / mmHG Vent. Rate : 054 BPM Atrial Rate : 054 BPM P-R Int : 252 ms QRS Dur : 100 ms QT Int : 498 ms P-R-T Axes : 014 006 101 degrees QTc Int : 472 ms Sinus bradycardia with 1st degree A-V block Abnormal QRS-T angle, consider primary T wave abnormality Prolonged QT Abnormal ECG Confirmed by LORIN FLORES, SHARAN ([id number]), fashion editor MARLO WYMAN ([id number]) on 07/25/2018 10:53:08 AM Referred By: Confirmed By:SHARAN PADGETT MD
[2018-07-25 12:04] LABS: Hemoglobin 8.9 g/dL (14.0-18.0)
[2018-07-25] MEDS ORDERED: Senokot S 8.6-50 MG TAB PO SCH (15:00)
[2018-07-25] MEDS ORDERED: Vancomycin HCl 2.5 GM in Sodium Chloride 0.9% 500 ML IVPB SCH (18:00)
--- NOTE | 2018-07-25 19:37 | PDOC.PN ---
- Subjective Encounter Start Date: 07/25/18 Encounter Start Time: 14:10 Subjective: f/u for BLE edema, Anasarca with drainage noted from L ankle/foot -: region. Noted drainage of pus/blood after ambulating with PT. - Objective Resuscitation Status: Resuscitation Status FULL:Full Resuscitation MAR Reviewed: Yes Vital Signs & Weight: Vital Signs (12 hours) Temp Pulse Pulse Pulse Resp BP BP 07/25/18 13:30 54 L 61 117/54 L 133/60 07/25/18 12:30 98.1 F 52 L 18 07/25/18 08:00 98.1 F 52 L 18 BP BP Pulse Ox 07/25/18 13:30 07/25/18 12:30 137/60 94 L 07/25/18 08:00 133/62 94 L Weight Admit Weight 245 lb Weight 228 lb 9.6 oz I&O: 07/24/18 07/25/18 07/26/18 06:59 06:59 06:59 Intake Total 300 300 180 Output Total 5200 1000 Balance -4900 -700 180 Result Diagrams: 07/25/18 11:56 07/25/18 04:31 Additional Labs: Microbiology 07/25/18 14:20 Ankle - Abscess Bacterial Culture - Preliminary Laboratory Tests 07/23/18 07/24/18 07/25/18 16:13 04:29 04:31 Hgb 9.3 L 8.4 L Hct 29.7 L 26.0 L MCV 99.4 H Plt Count 72 L 59 L Band Neuts % (Manual) 15 H EKG Reviewed by me: Yes (Tele - A-fib in 60's) Phys Exam - Physical Examination Constitutional: NAD HEENT: PERRLA, sclera anicteric, oral pharynx no lesions Neck: no nodes, no JVD, supple, full ROM Respiratory: no wheezing, no rales, no rhonchi, clear to auscultation bilateral S1, S2 Cardiovascular: no significant murmur, no rub, irregular obese, edema noted in lower abd Gastrointestinal: soft, positive bowel sounds marked edema LLE>RLE Musculoskeletal: pulses present Neurological: normal sensation, moves all 4 limbs Psychiatric: normal affect, A&O x 3 Deviation from normal: Open draining region of inner L ankle, dark blood/ purulence, dark discoloration to bilat LE's Skin: cap refill <2 seconds Dx/Plan (1) Abscess of left foot Code(s): L02.612 - CUTANEOUS ABSCESS OF LEFT FOOT Status: Acute Comment: Suspected, consult Gen Surgery for evaluation, start Vancomycin, wound cx, continue Rocephin (2) Anasarca Code(s): R60.1 - GENERALIZED EDEMA Status: Acute Comment: Improved, continue Lasix 40mg IV BID (3) Urinary retention Code(s): R33.9 - RETENTION OF URINE, UNSPECIFIED Status: Acute Comment: Multifactorial, continue Fisher catheter for decompression, consult Urology for evaluation (4) Chronic venous stasis Code(s): I87.8 - OTHER SPECIFIED DISORDERS OF VEINS Status: Chronic Comment : WCT for local dressings, Lasix IV as outlined in #1 (5) UTI (urinary tract infection) Status: Acute Comment: Suspected, continue Rocephin 2gm IV daily, await final Ucx results (6) A-fib Code(s): I48.91 - UNSPECIFIED ATRIAL FIBRILLATION Status: Acute Comment: Chronic, rate-controlled, continue Amiodarone 200mg daily (7) Multiple myeloma Code(s): C90.00 - MULTIPLE MYELOMA NOT HAVING ACHIEVED REMISSION Status: Acute Qualifiers: Multiple myeloma remission status: not in remission Qualified Code(s): C90.00 - Multiple myeloma not having achieved remission Comment: Consult medical oncology for resumption of chemotherapy regimen (8) Gross hematuria Status: Acute Comment: Suspect multifactorial given Fisher catheter placement, thrombocytopenia and Xarelto, consult Urology service, continue Fisher catheter - Plan continue antibiotics, 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
[2018-07-25] MEDS: Senokot S 8.6-50 MG TAB PO SCH (20:49)
[2018-07-25] MEDS: Atorvastatin Calcium 20 MG TAB PO SCH (20:49)
[2018-07-26 05:28] LABS: Hemoglobin 8.2 g/dL (14.0-18.0); Lymphocytes 8 % (21-51); MDiff Complete? YES; Mean Corpuscular HGB CONC 32.4 g/dL (32.0-36.0); Mean Corpuscular Volume 98.9 fL (78.0-98.0); Mean Platelet Volume 12.5 fL (7.4-10.4); Monocytes 13 % (0-10); Neutrophil 79 % (42-75); PLT Morphology Comment Appears Decreased; Platelet Count 66 thou/uL (130-400); RBC Distribution Width 17.3 % (11.5-14.5); Red Blood Cell (RBC) Count 2.55 mill/uL (4.70-6.10); White Blood Cell (WBC) Count 9.1 thou/uL (4.8-10.8)
[2018-07-26 05:31] LABS: Anion Gap 13 mmol/L (10-20); BUN (Urea Nitrogen) 17 mg/dL (8.4-25.7); Calc. Creatinine Clearance 86 mL/min (70-130); Calcium 7.6 mg/dL (7.8-10.44); Carbon Dioxide 23 mmol/L (23-31); Chloride 106 mmol/L (98-107); Estimated GFR-MDRD 68; Glucose 91 mg/dL (83-110); Potassium 3.1 mmol/L (3.5-5.1); Sodium 139 mmol/L (136-145)
[2018-07-26] MEDS: Vancomycin HCl 1 GM in Premix Bag 1 BAG IVPB SCH ×2 (05:57→17:19)
[2018-07-26] MEDS: Furosemide 40 MG/4 ML VIAL SLOW IVP SCH ×2 (05:57→13:50)
[2018-07-26] MEDS: cefTRIAXone\\ROCEPHIN 2 GM in Sodium Chloride 0.9% 100 ML IVPB SCH (08:26)
[2018-07-26] MEDS: valACYclovir 500 MG TAB PO SCH (08:27)
[2018-07-26] MEDS: Amiodarone 200 MG TAB PO SCH (08:27)
[2018-07-26] MEDS: Famotidine 20 MG TAB PO SCH ×2 (08:27→22:04)
[2018-07-26] MEDS: Senokot S 8.6-50 MG TAB PO SCH ×2 (08:27→22:09)
--- NOTE | 2018-07-26 12:38 | PDOC.EVN ---
Event Note - Event Note Event Note: Asked by wound care to see this right foot infection. Has three draining abscess in the setting of severe venous stasis disease. The wounds are open and draining but he will need more debridement. This may ultimately lead to amputation. No need for urgent operation today. I recommend consult Bhavani Escalera or Josh tomorrow.
[2018-07-26] MEDS ORDERED: ISOVUE-370 76%-LOCM 1 ML ONE (14:03)
--- NOTE | 2018-07-26 14:04 | CT ---
CT ABDOMEN AND PELVIS WITH AND WITHOUT CONTRAST: Multiple axial tomograms were obtained through the abdomen and pelvis without IV enhancement. Postco ntrast images were obtained in a portal venous phase and delayed venous phase. INDICATION: Gross hematuria. COMPARISON: No comparison. FINDINGS: Images through the lung bases reveal moderate bilateral pleural effusions. Liver, spleen, and pancreas appear unremarkable. On the images through the upper liver just under th e diaphragm, there is a small 1.0 cm low density focus consistent with a small hepatic cyst. Stomach and duodenum unremarkable. Post cholecystectomy clips. Adrenal glands unremarkable. Evaluation of the kidneys reveals a hyperdense lesion on the noncontrast study in the lateral cortex of the mid left kidney measuring approximately 2.0 cm. This hyperdense lesion is not well seen on th e portal venous phase. It shows low attenuation on the delayed venous phase. Hounsfield units are r elatively symmetric on all phases with no significant enhancement. There is a 1 cm exophytic cystic lesion from the lateral right renal cortex. Coronal images show evidence of a small cyst from the engle perior medial right kidney measuring 1.3 cm. This cystic lesion is not well seen on axial images. O n delayed images, there is contrast into the collecting structures. The bladder is mildly distended on the delayed sequence. A Fisher catheter is in place. There is evidence of mild bladder wall thick ening. Prostate shows mild hypertrophy. There is air in the bladder with an air fluid level seen an teriorly in the bladder lumen. Small bowel loops are normal caliber. Appendix appears normal. Colon unremarkable. Aorta normal ca liber. Evaluation of the osseous structures shows abnormal mottled density to all the visualized vertebrae a nd pelvis. Numerous punctate lucent lesions are seen throughout. Processes such as multiple myeloma should be excluded. IMPRESSION: 1. Moderate-sized bilateral pleural effusions. 2. Evaluation of the kidneys reveals a 2 cm hyperdense lesion in the lateral cortex of the left kidn ey seen on noncontrast study. No significant enhancement is seen within this lesion. Suggest ultras ound evaluation to assess sonographic characteristics of this lesion. 3. Other tiny low density foci are seen in the right kidney which are too small to adequately charac terize. 4. Bladder shows mild mural thickening. Fisher catheter appears adequately positioned. 5. Abnormal mottled density to the osseous structures with numerous low-density foci. Multiple myel frank and other infiltrative processes should be excluded. POS: [facility]
--- NOTE | 2018-07-26 14:41 | PDOC.PN ---
- Subjective Encounter Start Date: 07/26/18 Encounter Start Time: 14:35 Subjective: f/u for L foot abscess with multiple draining sites on Vancomycin and -: Rocephin. Gen surgery recommending debridement. Weight down 22lb -: since admit - Objective Resuscitation Status: Resuscitation Status FULL:Full Resuscitation MAR Reviewed: Yes Vital Signs & Weight: Vital Signs (12 hours) Temp Pulse Resp BP BP Pulse Ox 07/26/18 11:59 98.8 F 53 L 18 153/65 H 95 07/26/18 07:01 97.8 F 49 L 16 120/58 L 97 07/26/18 04:00 98.2 F 56 L 16 133/61 96 Weight Admit Weight 245 lb Weight 223 lb 9.6 oz I&O: 07/25/18 07/26/18 07/27/18 06:59 06:59 06:59 Intake Total 300 1940 Output Total 1000 2950 Balance -700 -1010 Result Diagrams: 07/26/18 04:33 07/26/18 04:33 Additional Labs: Microbiology 07/25/18 18:20 Venous blood - Right Arm Blood Culture - Preliminary Specimen has been received and culture in progress. No Growth to date. 07/25/18 18:20 Venous blood - Left Hand Blood Culture - Preliminary Specimen has been received and culture in progress. No Growth to date. 07/25/18 14:20 Ankle - Abscess Bacterial Culture - Preliminary Gram Negative Maurilio 07/25/18 14:20 Ankle - Abscess Bacterial Culture - Preliminary Laboratory Tests 07/23/18 07/24/18 07/25/18 16:13 04:29 04:31 Hgb 9.3 L 8.4 L Hct 29.7 L 26.0 L MCV 99.4 H Plt Count 72 L 59 L Band Neuts % (Manual) 15 H Radiology Reviewed by me: Yes (CT abd/pel - renal cysts, no acute process) EKG Reviewed by me: Yes (Tele - A-fib in 60's) Phys Exam - Physical Examination Constitutional: NAD HEENT: PERRLA, sclera anicteric, oral pharynx no lesions Neck: no nodes, no JVD, supple, full ROM Respiratory: no wheezing, no rales, no rhonchi, clear to auscultation bilateral S1, S2 Cardiovascular: no significant murmur, no rub, irregular Gastrointestinal: soft, non-tender, no distention, positive bowel sounds Edematous LLE/Foot with drainage on kerlex bandages Musculoskeletal: edema present Neurological: moves all 4 limbs Psychiatric: normal affect, A&O x 3 Skin: normal turgor, cap refill <2 seconds Deviation from normal: Fisher with wine colored urine, clearing Dx/Plan (1) Abscess of left foot Code(s): L02.612 - CUTANEOUS ABSCESS OF LEFT FOOT Status: Acute Comment: Appreciate Gen Surgery evaluation, needs debridement in next 24h, start Vancomycin, wound cx, continue Rocephin, GNR on initial wound cx (2) Anasarca Code(s): R60.1 - GENERALIZED EDEMA Status: Acute Comment: Improved, continue Lasix 40mg IV BID, 22lb weight loss since admit (3) Urinary retention Code(s): R33.9 - RETENTION OF URINE, UNSPECIFIED Status: Acute Comment: Multifactorial, continue Fisher catheter for decompression, consult Urology for evaluation (4) Chronic venous stasis Code(s): I87.8 - OTHER SPECIFIED DISORDERS OF VEINS Status: Chronic Comment : WCT for local dressings, Lasix IV as outlined in #1 (5) UTI (urinary tract infection) Status: Acute Comment: Suspected, continue Rocephin 2gm IV daily (6) A-fib Code(s): I48.91 - UNSPECIFIED ATRIAL FIBRILLATION Status: Acute Comment: Chronic, rate-controlled, continue Amiodarone 200mg daily (7) Multiple myeloma Code(s): C90.00 - MULTIPLE MYELOMA NOT HAVING ACHIEVED REMISSION Status: Acute Qualifiers: Multiple myeloma remission status: not in remission Qualified Code(s): C90.00 - Multiple myeloma not having achieved remission Comment: Consult medical oncology for resumption of chemotherapy regimen (8) Gross hematuria Status: Acute Comment: Suspect multifactorial given Fisher catheter placement, thrombocytopenia and Xarelto, consult Urology service, continue Fisher catheter - Plan continue antibiotics, 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
[2018-07-26] MEDS: Potassium Chloride 20 MEQ TAB PO SCH (17:20)
[2018-07-26] MEDS: Atorvastatin Calcium 20 MG TAB PO SCH (22:04)
[2018-07-27 05:35] LABS: Anion Gap 12 mmol/L (10-20); BUN (Urea Nitrogen) 18 mg/dL (8.4-25.7); Calc. Creatinine Clearance 72 mL/min (70-130); Calcium 7.6 mg/dL (7.8-10.44); Carbon Dioxide 25 mmol/L (23-31); Chloride 106 mmol/L (98-107); Estimated GFR-MDRD 57; Glucose 101 mg/dL (83-110); Potassium 3.2 mmol/L (3.5-5.1); Sodium 140 mmol/L (136-145)
[2018-07-27 05:36] LABS: Vancomycin, Trough 23.4 ug/mL
[2018-07-27] MEDS: Vancomycin HCl 1 GM in Premix Bag 1 BAG IVPB SCH (05:59)
[2018-07-27] MEDS: Furosemide 40 MG/4 ML VIAL SLOW IVP SCH ×2 (05:59→15:23)
[2018-07-27] MEDS ORDERED: Metolazone 5 MG TAB PO SCH (08:30)
[2018-07-27] MEDS: Potassium Chloride 20 MEQ TAB PO SCH ×2 (09:19→17:50)
[2018-07-27] MEDS: Amiodarone 200 MG TAB PO SCH (09:19)
[2018-07-27] MEDS: cefTRIAXone\\ROCEPHIN 2 GM in Sodium Chloride 0.9% 100 ML IVPB SCH (09:19)
[2018-07-27] MEDS: Senokot S 8.6-50 MG TAB PO SCH ×2 (09:20→20:25)
[2018-07-27] MEDS: valACYclovir 500 MG TAB PO SCH (09:20)
[2018-07-27] MEDS: Famotidine 20 MG TAB PO SCH ×2 (09:20→20:24)
--- NOTE | 2018-07-27 16:11 | PDOC.PN ---
- Subjective Encounter Start Date: 07/27/18 Encounter Start Time: 15:05 Subjective: f/u for L foot abscess awaiting I&D on Vancomycin/Rocephin. Still draining -: on LLE kerlex. Feeling ok overall and denies CP, fever. - Objective Resuscitation Status: Resuscitation Status FULL:Full Resuscitation MAR Reviewed: Yes Vital Signs & Weight: Vital Signs (12 hours) Temp Pulse Pulse Pulse Resp BP BP 07/27/18 15:30 98.4 F 56 L 16 07/27/18 12:23 97.6 F 59 L 16 07/27/18 08:55 53 L 56 L 132/60 143/62 H 07/27/18 08:00 98.5 F 53 L 16 BP BP Pulse Ox 07/27/18 15:30 150/65 H 96 07/27/18 12:23 121/58 L 97 07/27/18 08:55 07/27/18 08:00 140/62 94 L Weight Admit Weight 245 lb Weight 227 lb 3.2 oz I&O: 07/26/18 07/27/18 07/28/18 06:59 06:59 06:59 Intake Total 1940 1680 Output Total 2950 3100 Balance -1010 -1420 Result Diagrams: 07/26/18 04:33 07/27/18 04:39 Additional Labs: Microbiology 07/26/18 11:15 Foot - Wound Bacterial Culture - Preliminary 07/26/18 11:15 Foot - Wound Gram Negative Maurilio 07/25/18 18:20 Venous blood - Right Arm Blood Culture - Preliminary Specimen has been received and culture in progress. No Growth to date. 07/25/18 18:20 Venous blood - Right Arm Blood Culture - Preliminary NO GROWTH AT 48 HOURS 07/25/18 18:20 Venous blood - Left Hand Blood Culture - Preliminary Specimen has been received and culture in progress. No Growth to date. 07/25/18 18:20 Venous blood - Left Hand Blood Culture - Preliminary NO GROWTH AT 48 HOURS 07/25/18 14:20 Ankle - Abscess Bacterial Culture - Preliminary Serratia marcescens Presumptive Enterococcus sp. 07/25/18 14:20 Ankle - Abscess Bacterial Culture - Preliminary Gram Negative Maurilio 07/25/18 14:20 Ankle - Abscess Bacterial Culture - Preliminary Laboratory Tests 08/23/18 08/24/18 08/25/18 16:13 04:29 04:31 Hgb 9.3 L 8.4 L Hct 29.7 L 26.0 L MCV 99.4 H Plt Count 72 L 59 L Neutrophils % (Manual) 87 H Band Neuts % (Manual) 15 H Potassium 07/25/18 07/26/18 07/26/18 11:56 04:33 04:33 Hgb 8.9 L Hct MCV Plt Count Neutrophils % (Manual) 79 H Band Neuts % (Manual) Potassium 3.1 L EKG Reviewed by me: Yes (Tele - A-fib) Phys Exam - Physical Examination Constitutional: NAD HEENT: PERRLA, sclera anicteric, oral pharynx no lesions Neck: no nodes, no JVD, supple, full ROM Respiratory: no wheezing, no rales, no rhonchi, clear to auscultation bilateral S1, S2 Cardiovascular: no significant murmur, no rub, irregular Gastrointestinal: soft, non-tender, no distention, positive bowel sounds edema, discoloration of BLE's, large edema of L>R Musculoskeletal: pulses present Neurological: moves all 4 limbs Psychiatric: normal affect, A&O x 3 Skin: normal turgor, cap refill <2 seconds Dx/Plan (1) Abscess of left foot Code(s): L02.612 - CUTANEOUS ABSCESS OF LEFT FOOT Status: Acute Comment: Appreciate Gen Surgery evaluation, needs debridement in next 24h, start Vancomycin, wound cx, continue Rocephin, GNR on initial wound cx (2) Anasarca Code(s): R60.1 - GENERALIZED EDEMA Status: Acute Comment: Improved, continue Lasix 40mg IV BID, 22lb weight loss since admit (3) Urinary retention Code(s): R33.9 - RETENTION OF URINE, UNSPECIFIED Status: Acute Comment: Multifactorial, continue Fisher catheter for decompression, appreciate Urology assistance (4) Chronic venous stasis Code(s): I87.8 - OTHER SPECIFIED DISORDERS OF VEINS Status: Chronic Comment : WCT for local dressings, Lasix IV as outlined in #1 (5) UTI (urinary tract infection) Status: Acute Comment: Suspected, continue Rocephin 2gm IV daily (6) A-fib Code(s): I48.91 - UNSPECIFIED ATRIAL FIBRILLATION Status: Acute Comment: Chronic, rate-controlled, continue Amiodarone 200mg daily (7) Multiple myeloma Code(s): C90.00 - MULTIPLE MYELOMA NOT HAVING ACHIEVED REMISSION Status: Acute Qualifiers: Multiple myeloma remission status: not in remission Qualified Code(s): C90.00 - Multiple myeloma not having achieved remission Comment: Consult medical oncology for resumption of chemotherapy regimen (8) Gross hematuria Status: Acute Comment: Suspect multifactorial given Fisher catheter placement, thrombocytopenia and Xarelto, consult Urology service, continue Fisher catheter - Plan continue antibiotics, 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
[2018-07-27] MEDS: Tamsulosin HCl 0.4 MG CAP PO SCH (17:50)
--- NOTE | 2018-07-27 17:52 | HP ---
HISTORY OF PRESENT ILLNESS: A 77-year-old male, [facility] severe venous stasis di sav admitted with fluid overload, found to have a left foot abscess. Wound care has been seeing lorne patrick. Cultures reveal gram negative chaka, Serratia marcescens, Enterococcus. Blood cultures have been n egative. Plan is for incision and drainage of abscesses, left foot x2. Nu Gauze dressings were in p lace. ALLERGIES: None. TOBACCO: None. ALCOHOL: None. MEDICATIONS: At home, Velcade, acyclovir, Revlimid, Zometa, calcium, Xarelto 20 mg a day, dexamethas one 10 mg as directed, amiodarone daily, furosemide 40 mg a day, Xarelto has been held in the [facility], he is on vancomycin IV in the hospital, ceftriaxone IV. Patient was admitted 6 days ago to [facility], Jhoana Hanley, Oncology PA saw him. PAST MEDICAL HISTORY: Multiple myeloma, chronic venous stasis disease, chronic lymphedema, chronic c ompression therapy, hypertension, history of atrial fibrillation on anticoagulation with Xarelto held considering the above-mentioned problems, severe tricuspid valve regurgitation. PAST SURGICAL HISTORY: Left knee surgery with partial meniscectomy, cholecystectomy, left foot surge ry, TURP, prostate hyperplasia, cardiac ablation for atrial fibrillation. MEDICATIONS AT HOME: As noted above. Xarelto, amiodarone, benazepril, Toprol, hydralazine. PHYSICAL EXAMINATION: VITAL SIGNS: 227 pounds, 5 feet 10 inches, 32 BMI, 98.4 degrees, 56, 16, 156/65. HEENT: Unremarkable. LUNGS: Clear to auscultation. CARDIAC: Regular rate and rhythm without gallop, but with 2/6 ejection murmur. LUNGS: Clear to auscultation. ABDOMEN: Soft, nontender. EXTREMITIES: Palpable pedal pulses. Severe venous stasis changes. Left foot abscesses x2, ankle an d over the dorsum of the foot. ASSESSMENT AND PLAN: Left foot abscess x2. We will plan incision and drainage under IV sedation sandra orrow after adequate n.p.o. status. He can resume his Xarelto the next day. He can have outpatient wound care after this. Continue compressive dressings for his chronic venous stasis disease.
[2018-07-27] MEDS: Atorvastatin Calcium 20 MG TAB PO SCH (20:25)
[2018-07-28 05:45] LABS: Anion Gap 13 mmol/L (10-20); BUN (Urea Nitrogen) 14 mg/dL (8.4-25.7); Calc. Creatinine Clearance 83 mL/min (70-130); Calcium 7.5 mg/dL (7.8-10.44); Carbon Dioxide 25 mmol/L (23-31); Chloride 103 mmol/L (98-107); Estimated GFR-MDRD 66; Glucose 99 mg/dL (83-110); Potassium 3.1 mmol/L (3.5-5.1); Sodium 138 mmol/L (136-145)
[2018-07-28] MEDS: Furosemide 40 MG/4 ML VIAL SLOW IVP SCH (05:48)
[2018-07-28] MEDS ORDERED: Lactated Ringer's 1,000 ML IV SCH (08:00)
[2018-07-28] MEDS ORDERED: Furosemide 20 MG TAB PO SCH (09:00)
[2018-07-28] MEDS ORDERED: PROPOFOL 200 MG/20 ML VIAL ONE (10:52)
[2018-07-28] MEDS: cefTRIAXone\\ROCEPHIN 2 GM in Sodium Chloride 0.9% 100 ML IVPB SCH (11:12)
[2018-07-28] MEDS: Senokot S 8.6-50 MG TAB PO SCH ×2 (11:13→20:37)
[2018-07-28] MEDS: Furosemide 40 MG TAB PO SCH ×2 (11:13→14:13)
[2018-07-28] MEDS: Potassium Chloride 20 MEQ TAB PO SCH ×2 (11:13→18:01)
[2018-07-28] MEDS: valACYclovir 500 MG TAB PO SCH (11:13)
[2018-07-28] MEDS: Famotidine 20 MG TAB PO SCH ×2 (11:14→20:37)
[2018-07-28] MEDS: Amiodarone 200 MG TAB PO SCH (11:14)
[2018-07-28] MEDS ORDERED: Fentanyl 100 MCG/2 ML VIAL ONE (15:04)
[2018-07-28] MEDS ORDERED: Bupivacaine HCl 0.5%/Epinephrine 1:200,000/PF 30 ml Vial ONE (15:08)
[2018-07-28] MEDS ORDERED: Lidocaine 2% 10 ML INJ ONE ×2 (15:08)
[2018-07-28] MEDS ORDERED: Propofol 1,000 MG/100 ML VIAL IV ONE (15:20)
[2018-07-28] MEDS ORDERED: Ketamine 50 MG/ML VIAL ONE (15:37)
[2018-07-28] MEDS ORDERED: Midazolam HCl 2 mg/2 ml Vial ONE (15:46)
[2018-07-28] MEDS ORDERED: Ondansetron HCl/PF 4 MG/2 ML Vial IVP PRN (16:22)
[2018-07-28] MEDS ORDERED: Promethazine HCl 25 MG/ML VIAL SLOW IVP PRN (16:22)
[2018-07-28] MEDS ORDERED: Morphine Sulfate 2 MG/ML SYRINGE SLOW IVP PRN (16:22)
[2018-07-28] MEDS: Tamsulosin HCl 0.4 MG CAP PO SCH (18:02)
--- NOTE | 2018-07-28 19:34 | OP ---
DATE OF PROCEDURE: 07/27/2018 PREOPERATIVE DIAGNOSIS: Severe chronic venous stasis disease, history of multiple myeloma, nonhealin g wounds of left foot, abscesses of left foot, dorsum and medial. PROCEDURES: Sharp excisional resectional debridement using a 15 and 10 blade scalpel excising skin a nd subcutaneous tissue and inflammatory tissue. Debriding the wound, dorsum left foot and medial lef t foot, wounds extensive both with undermining and necrotic skin surrounding, normal saline wet to dr y dressings with a 6 inch Jared wrap, sequential compression foot to knee applied. SURGEON: Dr. Haney. ANESTHESIA: TIVA, local 0.5% Marcaine with epinephrine, 30 mL, mixed with 2% Xylocaine, 10 mL mixtur e used total. PROCEDURE IN DETAIL: Patient taken to the operating room where under intravenous sedation, left lowe r extremity was prepared with ChloraPrep, draped in routine fashion. Patient had two wounds, one of the dorsum of his left foot and other over the medial left foot ankle area. These were punctate open ings with Nu Gauze applied. Once these dressings were removed and ChloraPrep applied, small puncture wounds previously were debrided of skin bridges, macerated necrotic skin surrounding opening undermi naya areas leaving a wound over the dorsum of foot approximately 4 cm, medial foot 4 cm. Wound is irr igated and inflammatory tissue debrided sharply with 10 blade and 15 blade scalpel. Wound irrigated with normal saline wet to dry dressings applied. Jared wrap applied foot to knee. The patient tolerat ed the procedure well.
[2018-07-28] MEDS: Atorvastatin Calcium 20 MG TAB PO SCH (20:37)
[2018-07-28] MEDS: Enoxaparin Sodium 40 MG/0.4 ML SYRINGE SC SCH (20:39)
[2018-07-28] MEDS ORDERED: Nystatin Powder 15 GM BOT TOP PRN (23:26)
[2018-07-29] MEDS: Amiodarone 200 MG TAB PO SCH (08:29)
[2018-07-29] MEDS: Potassium Chloride 20 MEQ TAB PO SCH ×2 (08:29→16:56)
[2018-07-29] MEDS: cefTRIAXone\\ROCEPHIN 2 GM in Sodium Chloride 0.9% 100 ML IVPB SCH ×2 (08:31→11:51)
[2018-07-29] MEDS: valACYclovir 500 MG TAB PO SCH (08:32)
[2018-07-29] MEDS: Furosemide 40 MG TAB PO SCH ×2 (08:32→13:25)
[2018-07-29] MEDS: Senokot S 8.6-50 MG TAB PO SCH ×2 (08:32→21:21)
[2018-07-29] MEDS: Famotidine 20 MG TAB PO SCH ×2 (08:32→21:18)
--- NOTE | 2018-07-29 10:09 | PRG ---
DATE OF SERVICE: 07/29/2018 Mr. Gastelum's dressing left leg is intact. I did discuss with him treatment. I would recommend that he be up in a chair several times a day, elevate his leg as able, avoid prolonged dependency. I woul d recommend he take several breaks during the day to elevate his leg above his heart. He should wear a compressive Jared wrap foot to knee when he is out of bed. Currently, he has a 6 inch Jared wrap appl ied. He should receive dressings to his left foot wounds every 2-3 days, consisting of Medihoney or alginate dressings for healing by secondary intention. Antibiotics orally per Dr. Gallo. From a any gical standpoint, the patient can be discharged home at any time. I will see him as needed this hosp italization. He has had previous home health nursing arrangements and home health nursing can be arr anged for discharge and wound care. I will see him in my office in 2-3 weeks to follow his wounds. He can be discharged home on oral antibiotics.
--- NOTE | 2018-07-29 11:18 | PDOC.PN ---
- Subjective Encounter Start Date: 07/29/18 Encounter Start Time: 11:14 [facility] He does not have any complaints, except that he has not had a bowel movement in a few days. - Objective Resuscitation Status: Resuscitation Status FULL:Full Resuscitation MAR Reviewed: Yes Vital Signs & Weight: Vital Signs (12 hours) Temp Pulse Resp BP Pulse Ox 07/29/18 08:25 97.6 F 56 L 16 95 07/29/18 08:24 97.6 F 56 L 16 134/63 95 07/29/18 03:25 98 F 69 14 136/60 92 L Weight Admit Weight 245 lb Weight 208 lb I&O: 07/28/18 07/29/18 07/30/18 06:59 06:59 06:59 Intake Total 1502 810 Output Total 5600 2775 Balance -4098 -0290 Result Diagrams: 07/26/18 04:33 07/28/18 04:53 Phys Exam - Physical Examination Respiratory: no wheezing, no rales, no rhonchi, clear to auscultation bilateral Cardiovascular: RRR, no significant murmur, no rub Gastrointestinal: soft, non-tender, positive bowel sounds Musculoskeletal: edema present trace edema, and chronic venous stasis changes Neurological: non-focal, moves all 4 limbs Dx/Plan (1) Abscess of left foot Code(s): L02.612 - CUTANEOUS ABSCESS OF LEFT FOOT Status: Acute Comment: Appreciate Gen Surgery evaluation, needs debridement in next 24h, start Vancomycin, wound cx, continue Rocephin, GNR on initial wound cx (2) Anasarca Code(s): R60.1 - GENERALIZED EDEMA Status: Acute Comment: Improved, continue Lasix 40mg IV BID, 22lb weight loss since admit (3) UTI (urinary tract infection) Status: Acute Comment: Suspected, continue Rocephin 2gm IV daily (4) Urinary retention Code(s): R33.9 - RETENTION OF URINE, UNSPECIFIED Status: Acute Comment: Multifactorial, continue Fisher catheter for decompression, appreciate Urology assistance (5) A-fib Code(s): I48.91 - UNSPECIFIED ATRIAL FIBRILLATION Status: Acute Comment: Chronic, rate-controlled, continue Amiodarone 200mg daily - Plan * Chronic venous stasis- continue local wound care as instructed by General Surgery * Will ask ID about the best antibiotic to discharge home * AFIB- heart rate is stable * CHF with preserved EF- stable * Possible discharge home later today.
[2018-07-29 15:52] LABS: Vancomycin, Trough 23.9 ug/mL
[2018-07-29] MEDS: Potassium Bicarbonate/Cit Ac 25 MEQ TAB PO SCH (18:27)
[2018-07-29] MEDS: Tamsulosin HCl 0.4 MG CAP PO SCH (18:27)
[2018-07-29] MEDS: Amoxicillin/Potassium Clav 875 MG TAB PO SCH (21:18)
[2018-07-29] MEDS: Ciprofloxacin 500 MG TAB PO SCH (21:18)
[2018-07-29] MEDS: Atorvastatin Calcium 20 MG TAB PO SCH (21:21)
[2018-07-29] MEDS: Enoxaparin Sodium 40 MG/0.4 ML SYRINGE SC SCH (21:21)
[2018-07-30] MEDS: Ciprofloxacin 500 MG TAB PO SCH ×2 (05:38→21:20)
[2018-07-30] MEDS: Potassium Bicarbonate/Cit Ac 25 MEQ TAB PO SCH ×2 (08:41→17:58)
[2018-07-30] MEDS: Amoxicillin/Potassium Clav 875 MG TAB PO SCH ×2 (08:44→21:20)
[2018-07-30] MEDS: Amiodarone 200 MG TAB PO SCH (08:44)
[2018-07-30] MEDS: Furosemide 40 MG TAB PO SCH ×2 (08:45→13:26)
[2018-07-30] MEDS: Famotidine 20 MG TAB PO SCH ×2 (08:45→21:20)
[2018-07-30] MEDS: Senokot S 8.6-50 MG TAB PO SCH ×2 (08:45→21:22)
[2018-07-30] MEDS: valACYclovir 500 MG TAB PO SCH (08:45)
--- NOTE | 2018-07-30 09:21 | PDOC.EVN ---
Event Note - Event Note Event Note: The discharge was held due to the patient complaining of feeling weak and says he is having difficulty walking.
--- NOTE | 2018-07-30 09:30 | PDOC.PN ---
- Subjective Encounter Start Date: 07/30/18 Encounter Start Time: 09:29 Mr. Gastelum was seen today in follow-up of venous stasis ulcers. He says that he is weak in the left leg, after he had the surgical debridement. - Objective Resuscitation Status: Resuscitation Status FULL:Full Resuscitation MAR Reviewed: Yes Vital Signs & Weight: Vital Signs (12 hours) Temp Pulse Resp BP Pulse Ox 07/30/18 07:40 97.9 F 57 L 16 126/63 07/30/18 04:00 98.1 F 61 18 133/60 97 07/30/18 00:00 20 Weight Admit Weight 245 lb Weight 207 lb 12.8 oz I&O: 07/29/18 07/30/18 07/31/18 06:59 06:59 06:59 Intake Total 810 1160 Output Total 2775 1300 Balance -1965 -140 Result Diagrams: 07/26/18 04:33 07/28/18 04:53 Phys Exam - Physical Examination HEENT: PERRLA Respiratory: no wheezing, no rales, no rhonchi, clear to auscultation bilateral Cardiovascular: RRR, no significant murmur, no rub Gastrointestinal: soft, non-tender, positive bowel sounds Musculoskeletal: edema present + 1 + edema, and chronic venous stasis changes, wounds are dressed Neurological: non-focal, moves all 4 limbs Dx/Plan (1) Abscess of left foot Code(s): L02.612 - CUTANEOUS ABSCESS OF LEFT FOOT Status: Acute Comment: Appreciate Gen Surgery evaluation, needs debridement in next 24h, start Vancomycin, wound cx, continue Rocephin, GNR on initial wound cx (2) Anasarca Code(s): R60.1 - GENERALIZED EDEMA Status: Acute Comment: Improved, continue Lasix 40mg IV BID, 22lb weight loss since admit (3) UTI (urinary tract infection) Status: Acute Comment: Suspected, continue Rocephin 2gm IV daily (4) Urinary retention Code(s): R33.9 - RETENTION OF URINE, UNSPECIFIED Status: Acute Comment: Multifactorial, continue Fisher catheter for decompression, appreciate Urology assistance (5) A-fib Code(s): I48.91 - UNSPECIFIED ATRIAL FIBRILLATION Status: Acute Comment: Chronic, rate-controlled, continue Amiodarone 200mg daily (6) Multiple myeloma Code(s): C90.00 - MULTIPLE MYELOMA NOT HAVING ACHIEVED REMISSION Status: Chronic Qualifiers: Multiple myeloma remission status: not in remission Qualified Code(s): C90.00 - Multiple myeloma not having achieved remission Comment: Consult medical oncology for resumption of chemotherapy regimen (7) HTN (hypertension) Code(s): I10 - ESSENTIAL (PRIMARY) HYPERTENSION Status: Chronic Qualifiers: Hypertension type: essential hypertension Qualified Code(s): I10 - Essential (primary) hypertension Comment: Fair control. ACEi held 2/2 REBECA. Continue hydralazine. - Plan * Chronic venous stasis ulcer- continue local wound care, and Augmentin and Cipro * Deconditioning- will have PT and OT to re-evaluate the patient. He may need a stay in Rehab or [facility] prior to discharge * AFIB- his heart rate is controlled- anticoagulation is being held due to bleeding, thrombocytopenia, and hematuria * UTI- continue current antibiotics ( he needs a total of 2 weeks) * HTN- blood pressure is stable * Multiple Myeloma- stable.
[2018-07-30 10:26] LABS: Hemoglobin 9.1 g/dL (14.0-18.0); Mean Corpuscular HGB CONC 32.5 g/dL (32.0-36.0); Mean Corpuscular Hemoglobin 31.5 pg (27.0-31.0); Mean Corpuscular Volume 97.2 fL (78.0-98.0); Mean Platelet Volume 9.8 fL (7.4-10.4); Platelet Count 205 thou/uL (130-400); RBC Distribution Width 17.1 % (11.5-14.5); Red Blood Cell (RBC) Count 2.88 mill/uL (4.70-6.10); White Blood Cell (WBC) Count 13.4 thou/uL (4.8-10.8)
[2018-07-30 10:44] LABS: Anion Gap 11 mmol/L (10-20); BUN (Urea Nitrogen) 20 mg/dL (8.4-25.7); Calc. Creatinine Clearance 76 mL/min (70-130); Calcium 7.9 mg/dL (7.8-10.44); Carbon Dioxide 26 mmol/L (23-31); Chloride 100 mmol/L (98-107); Estimated GFR-MDRD 66; Glucose 149 mg/dL (83-110); Potassium 3.2 mmol/L (3.5-5.1); Sodium 134 mmol/L (136-145)
[2018-07-30 10:45] LABS: Anisocytosis SLIGHT = 6-15 cells (100X) (0-5/hpf); Band 2 % (5-11); Lymphocytes 9 % (21-51); MDiff Complete? YES; Monocytes 6 % (0-10); Neutrophil 83 % (42-75); Ovalocytes SLIGHT = 2-5 cells (100X) (0-1/hpf); PLT Morphology Comment Appears Adequate; Polychromasia SLIGHT = 2-3 cells (100X) (0-2/hpf)
[2018-07-30] MEDS: Tamsulosin HCl 0.4 MG CAP PO SCH (17:58)
[2018-07-30] MEDS: Atorvastatin Calcium 20 MG TAB PO SCH (21:20)
[2018-07-30] MEDS: Enoxaparin Sodium 40 MG/0.4 ML SYRINGE SC SCH (21:30)
[2018-07-31] MEDS: Ciprofloxacin 500 MG TAB PO SCH ×2 (05:00→20:26)
--- NOTE | 2018-07-31 08:37 | PDOC.PN ---
- Subjective Encounter Start Date: 07/31/18 Encounter Start Time: 08:34 Mr. Gastelum was seen today in follow-up of venous stasis infection. He does not have any new complaints. - Objective Resuscitation Status: Resuscitation Status FULL:Full Resuscitation MAR Reviewed: Yes Vital Signs & Weight: Vital Signs (12 hours) Temp Pulse Resp BP Pulse Ox 07/31/18 04:00 98.8 F 60 16 121/59 L 98 Weight Admit Weight 245 lb Weight 206 lb 6.4 oz I&O: 07/30/18 07/31/18 08/01/18 06:59 06:59 06:59 Intake Total 1160 1120 Output Total 1300 850 Balance -140 270 Result Diagrams: 07/30/18 09:56 07/30/18 09:56 Phys Exam - Physical Examination HEENT: PERRLA Respiratory: no wheezing, no rales, no rhonchi, clear to auscultation bilateral Cardiovascular: RRR, no significant murmur, no rub Gastrointestinal: soft, non-tender, no distention, positive bowel sounds Musculoskeletal: edema present + venous stasis changes, Dx/Plan (1) Abscess of left foot Code(s): L02.612 - CUTANEOUS ABSCESS OF LEFT FOOT Status: Acute Comment: Appreciate Gen Surgery evaluation, needs debridement in next 24h, start Vancomycin, wound cx, continue Rocephin, GNR on initial wound cx (2) Anasarca Code(s): R60.1 - GENERALIZED EDEMA Status: Acute Comment: Improved, continue Lasix 40mg IV BID, 22lb weight loss since admit (3) UTI (urinary tract infection) Status: Acute Comment: Suspected, continue Rocephin 2gm IV daily (4) Urinary retention Code(s): R33.9 - RETENTION OF URINE, UNSPECIFIED Status: Acute Comment: Multifactorial, continue Fisher catheter for decompression, appreciate Urology assistance (5) A-fib Code(s): I48.91 - UNSPECIFIED ATRIAL FIBRILLATION Status: Acute Comment: Chronic, rate-controlled, continue Amiodarone 200mg daily (6) Multiple myeloma Code(s): C90.00 - MULTIPLE MYELOMA NOT HAVING ACHIEVED REMISSION Status: Chronic Comment: Consult medical oncology for resumption of chemotherapy regimen (7) HTN (hypertension) Code(s): I10 - ESSENTIAL (PRIMARY) HYPERTENSION Status: Chronic Comment: Fair control. ACEi held 2/2 REBECA. Continue hydralazine. - Plan * Venous stasis ulcer- continue local care, continue Augmentn and Cipro * AFIB- his heart rate is stable- he has been taken off anticoagulation due to low platelets and multiple meyloma, and hematuria- this can be re-addressed as outpatient * HTN- blood pressure is controlled * Awaiting transfer to Rehab.
[2018-07-31] MEDS: Potassium Bicarbonate/Cit Ac 25 MEQ TAB PO SCH ×2 (08:51→17:29)
[2018-07-31] MEDS: Senokot S 8.6-50 MG TAB PO SCH ×2 (08:51→20:27)
[2018-07-31] MEDS: Amoxicillin/Potassium Clav 875 MG TAB PO SCH ×2 (08:52→20:27)
[2018-07-31] MEDS: Famotidine 20 MG TAB PO SCH ×2 (08:52→20:27)
[2018-07-31] MEDS: Amiodarone 200 MG TAB PO SCH (08:52)
[2018-07-31] MEDS: valACYclovir 500 MG TAB PO SCH (08:52)
[2018-07-31] MEDS: Furosemide 40 MG TAB PO SCH ×2 (08:52→13:35)
[2018-07-31] MEDS: Tamsulosin HCl 0.4 MG CAP PO SCH (17:31)
[2018-07-31] MEDS: Enoxaparin Sodium 40 MG/0.4 ML SYRINGE SC SCH (20:26)
[2018-07-31] MEDS: Atorvastatin Calcium 20 MG TAB PO SCH (20:27)
[2018-08-01] MEDS: Ciprofloxacin 500 MG TAB PO SCH ×2 (06:05→20:44)
[2018-08-01] MEDS: Potassium Bicarbonate/Cit Ac 25 MEQ TAB PO SCH ×2 (10:05→17:35)
[2018-08-01] MEDS: Amoxicillin/Potassium Clav 875 MG TAB PO SCH ×2 (10:05→20:44)
[2018-08-01] MEDS: Senokot S 8.6-50 MG TAB PO SCH ×2 (10:05→20:44)
[2018-08-01] MEDS: Famotidine 20 MG TAB PO SCH ×2 (10:06→20:44)
[2018-08-01] MEDS: Furosemide 40 MG TAB PO SCH ×2 (10:06→14:09)
[2018-08-01] MEDS: Amiodarone 200 MG TAB PO SCH (10:06)
[2018-08-01] MEDS: valACYclovir 500 MG TAB PO SCH (10:06)
--- NOTE | 2018-08-01 13:23 | PDOC.PN ---
- Subjective Encounter Start Date: 08/01/18 Encounter Start Time: 08:40 Pt seen for followup re: left foot abscess. Feels better. Not ambulating. No fevers or chills. No nausea or vomiting. - Objective Resuscitation Status: Resuscitation Status FULL:Full Resuscitation MAR Reviewed: Yes Vital Signs & Weight: Vital Signs (12 hours) Temp Pulse Resp BP BP Pulse Ox 08/01/18 11:30 98.0 F 62 16 120/53 L 99 08/01/18 08:36 97.5 F L 59 L 16 114/58 L 95 08/01/18 04:00 98.9 F 55 L 20 107/53 L 95 Weight Admit Weight 245 lb Weight 207 lb 9.6 oz I&O: 07/31/18 08/01/18 08/02/18 06:59 06:59 06:59 Intake Total 1120 840 Output Total 850 550 Balance 270 290 Result Diagrams: 07/30/18 09:56 07/30/18 09:56 Additional Labs: Labs reviewed by me Phys Exam - Physical Examination Constitutional: NAD HEENT: moist MMs Neck: supple Respiratory: clear to auscultation bilateral Cardiovascular: RRR Gastrointestinal: soft Neurological: moves all 4 limbs Psychiatric: normal affect Deviation from normal: L leg/foot dressing Dx/Plan (1) Abscess of left foot Code(s): L02.612 - CUTANEOUS ABSCESS OF LEFT FOOT Status: Acute Comment: continue oral antibiotics, consult ID for clarification re: duration of treatment (2) HTN (hypertension) Code(s): I10 - ESSENTIAL (PRIMARY) HYPERTENSION Status: Chronic Qualifiers: Hypertension type: essential hypertension Qualified Code(s): I10 - Essential (primary) hypertension Comment: controlled and at goal (3) Multiple myeloma Code(s): C90.00 - MULTIPLE MYELOMA NOT HAVING ACHIEVED REMISSION Status: Chronic Qualifiers: Multiple myeloma remission status: not in remission Qualified Code(s): C90.00 - Multiple myeloma not having achieved remission Comment: medical oncology following (4) UTI (urinary tract infection) Status: Suspected Comment: urine cultures were not sent - Plan * . Review of Systems - Review of Systems Respiratory: negative: Cough, Shortness of Breath, SOB with Excertion, Pleuritic Pain, Wheezing Cardiovascular: negative: chest pain, palpitations, orthopnea, paroxysmal nocturnal dyspnea, edema, light headedness - Medications/Allergies Allergies/Adverse Reactions: Allergies Allergy/AdvReac Type Severity Reaction Status Date / Time No Known Allergies Allergy Unverified 07/27/18 00:49 Medications: Current Medications Acetaminophen (Tylenol) 1,000 mg PO Q6H PRN PRN Reason: Headache/Fever or Mild Pain Amiodarone HCl (Cordarone) 200 mg PO DAILY [facility] Last Admin: 08/01/18 10:06 Dose: 200 mg Amoxicillin/Clavulanate Potassium (Augmentin) 875 mg PO Q12HR [facility] Last Admin: 08/01/18 10:05 Dose: 875 mg Atorvastatin Calcium (Lipitor) 20 mg PO HS [facility] Last Admin: 07/31/18 20:27 Dose: 20 mg Ciprofloxacin (Cipro) 500 mg PO 0600,2000 [facility] Last Admin: 08/01/18 06:05 Dose: 500 mg Enoxaparin Sodium (Lovenox) 40 mg SC 2100 [facility] Last Admin: 07/31/18 20:26 Dose: Not Given Famotidine (Pepcid) 20 mg PO BID [facility] Last Admin: 08/01/18 10:06 Dose: 20 mg Furosemide (Lasix) 40 mg PO 0900,1400 [facility] Last Admin: 08/01/18 10:06 Dose: 40 mg Hydralazine HCl (Apresoline) 10 mg SLOW IVP Q4H PRN PRN Reason: Systolic BP > 180 Nystatin (Mycostatin Powder) 0 gm TOP PRN PRN PRN Reason: Topical Irritations Last Admin: 07/28/18 23:52 Dose: 1 applic Ondansetron HCl (Zofran Odt) 4 mg PO Q6H PRN PRN Reason: Nausea/Vomiting Ondansetron HCl (Zofran) 4 mg IVP Q6H PRN PRN Reason: Nausea/Vomiting Potassium Bicarbonate/Citric Acid (K-Vescent) 25 meq PO BID-[facility] Last Admin: 08/01/18 10:05 Dose: 25 meq Senna/Docusate Sodium (Senokot S) 1 tab PO BID [facility] Last Admin: 08/01/18 10:05 Dose: 1 tab Sodium Chloride (Flush - Normal Saline) 10 ml IVF Q12HR [facility] Last Admin: 08/01/18 10:07 Dose: Not Given Sodium Chloride (Flush - Normal Saline) 10 ml IVF PRN PRN PRN Reason: Saline Flush Tamsulosin HCl (Flomax) 0.4 mg PO 1830 [facility] Last Admin: 07/31/18 17:31 Dose: 0.4 mg Valacyclovir HCl (Valtrex) 500 mg PO DAILY [facility] Last Admin: 08/01/18 10:06 Dose: 500 mg
[2018-08-01] MEDS: Tamsulosin HCl 0.4 MG CAP PO SCH (17:36)
[2018-08-01] MEDS: Enoxaparin Sodium 40 MG/0.4 ML SYRINGE SC SCH (20:44)
[2018-08-01] MEDS: Atorvastatin Calcium 20 MG TAB PO SCH (20:44)
[2018-08-02] MEDS: Ciprofloxacin 500 MG TAB PO SCH ×2 (06:15→20:56)
[2018-08-02] MEDS: Potassium Bicarbonate/Cit Ac 25 MEQ TAB PO SCH ×2 (09:16→17:56)
[2018-08-02] MEDS: Furosemide 40 MG TAB PO SCH ×2 (09:17→13:05)
[2018-08-02] MEDS: Amiodarone 200 MG TAB PO SCH (09:17)
[2018-08-02] MEDS: Famotidine 20 MG TAB PO SCH ×2 (09:17→20:56)
[2018-08-02] MEDS: valACYclovir 500 MG TAB PO SCH ×3 (09:17→20:59)
[2018-08-02] MEDS: Amoxicillin/Potassium Clav 875 MG TAB PO SCH ×2 (09:17→20:57)
[2018-08-02] MEDS: Senokot S 8.6-50 MG TAB PO SCH ×2 (09:18→20:57)
--- NOTE | 2018-08-02 13:07 | PDOC.PN ---
- Subjective Encounter Start Date: 08/02/18 Encounter Start Time: 08:20 Pt seen for followup re: left foot abscess. Feels better. - Objective Resuscitation Status: Resuscitation Status FULL:Full Resuscitation MAR Reviewed: Yes Vital Signs & Weight: Vital Signs (12 hours) Temp Pulse Resp BP Pulse Ox 08/02/18 11:02 98 F 61 18 97 08/02/18 10:58 98 F 61 18 155/71 H 97 08/02/18 07:47 98.3 F 59 L 16 142/60 H 96 08/02/18 03:22 97.7 F 57 L 21 H 120/56 L 96 Weight Admit Weight 245 lb Weight 222 lb 8 oz I&O: 08/01/18 08/02/18 08/03/18 06:59 06:59 06:59 Intake Total 840 1180 Output Total 550 200 Balance 290 980 Result Diagrams: 07/30/18 09:56 07/30/18 09:56 Additional Labs: labs reviewed by me Phys Exam - Physical Examination Obesity HEENT: sclera anicteric Neck: supple Respiratory: clear to auscultation bilateral Cardiovascular: RRR Gastrointestinal: soft Neurological: moves all 4 limbs Psychiatric: normal affect Deviation from normal: L foot dressing Dx/Plan (1) Abscess of left foot Code(s): L02.612 - CUTANEOUS ABSCESS OF LEFT FOOT Status: Acute Comment: continue oral antibiotics as below (2) HTN (hypertension) Code(s): I10 - ESSENTIAL (PRIMARY) HYPERTENSION Status: Chronic Qualifiers: Hypertension type: essential hypertension Qualified Code(s): I10 - Essential (primary) hypertension Comment: controlled (3) Multiple myeloma Code(s): C90.00 - MULTIPLE MYELOMA NOT HAVING ACHIEVED REMISSION Status: Chronic Qualifiers: Multiple myeloma remission status: not in remission Qualified Code(s): C90.00 - Multiple myeloma not having achieved remission Comment: medical oncology following (4) UTI (urinary tract infection) Status: Suspected Comment: urine cultures not sent - Plan * . Review of Systems - Review of Systems Respiratory: negative: Cough, Shortness of Breath, SOB with Excertion, Pleuritic Pain, Wheezing Cardiovascular: negative: chest pain, palpitations, orthopnea, paroxysmal nocturnal dyspnea, edema, light headedness - Medications/Allergies Allergies/Adverse Reactions: Allergies Allergy/AdvReac Type Severity Reaction Status Date / Time No Known Allergies Allergy Unverified 07/27/18 00:49 Medications: Current Medications Acetaminophen (Tylenol) 1,000 mg PO Q6H PRN PRN Reason: Headache/Fever or Mild Pain Amiodarone HCl (Cordarone) 200 mg PO DAILY [facility] Last Admin: 08/02/18 09:17 Dose: 200 mg Amoxicillin/Clavulanate Potassium (Augmentin) 875 mg PO Q12HR [facility] Last Admin: 08/02/18 09:17 Dose: 875 mg Atorvastatin Calcium (Lipitor) 20 mg PO HS [facility] Last Admin: 08/01/18 20:44 Dose: 20 mg Ciprofloxacin (Cipro) 500 mg PO 0600,2000 [facility] Last Admin: 08/02/18 06:15 Dose: 500 mg Enoxaparin Sodium (Lovenox) 40 mg SC 2100 [facility] Last Admin: 08/01/18 20:44 Dose: Not Given Famotidine (Pepcid) 20 mg PO BID [facility] Last Admin: 08/02/18 09:17 Dose: 20 mg Furosemide (Lasix) 40 mg PO 0900,1400 [facility] Last Admin: 08/02/18 13:05 Dose: 40 mg Hydralazine HCl (Apresoline) 10 mg SLOW IVP Q4H PRN PRN Reason: Systolic BP > 180 Nystatin (Mycostatin Powder) 0 gm TOP PRN PRN PRN Reason: Topical Irritations Last Admin: 07/28/18 23:52 Dose: 1 applic Ondansetron HCl (Zofran Odt) 4 mg PO Q6H PRN PRN Reason: Nausea/Vomiting Ondansetron HCl (Zofran) 4 mg IVP Q6H PRN PRN Reason: Nausea/Vomiting Potassium Bicarbonate/Citric Acid (K-Vescent) 25 meq PO BID-[facility] Last Admin: 08/02/18 09:16 Dose: 25 meq Senna/Docusate Sodium (Senokot S) 1 tab PO BID [facility] Last Admin: 08/02/18 09:18 Dose: Not Given Sodium Chloride (Flush - Normal Saline) 10 ml IVF Q12HR [facility] Last Admin: 08/02/18 09:18 Dose: Not Given Sodium Chloride (Flush - Normal Saline) 10 ml IVF PRN PRN PRN Reason: Saline Flush Tamsulosin HCl (Flomax) 0.4 mg PO 1830 [facility] Last Admin: 08/01/18 17:36 Dose: 0.4 mg Valacyclovir HCl (Valtrex) 500 mg PO DAILY [facility] Last Admin: 08/02/18 09:17 Dose: 500 mg
--- NOTE | 2018-08-02 14:18 | CON ---
DATE OF CONSULTATION: 08/02/2018 REASON FOR CONSULTATION: Skin abscesses in the setting of multiple myeloma. HISTORY OF PRESENT ILLNESS: A 77-year-old with a history of chronic atrial fibrillation, venous stasis, recently diagnosed with multiple myeloma, currently on Revlimid and Decadron for the past 3 weeks, admitted with worsening swelling of legs and abdomen and abscess in the left foot and leg. The patient had surgical debridement and was being readied for discharge when he developed dizziness and was kept in the hospital. He is awake and alert, appears chronically ill. Denies any headaches. No visual symptoms, sore throat , odynophagia or dysphagia. No cough and no abdominal pain. Voiding without difficulty in the urinal. Peripheral IV access. Denies any diarrhea. No neurological symptoms. Pain in the left lower extremity, which is mild to moderate. Swelling has reduced with diuretics. PAST MEDICAL HISTORY: Includes atrial fibrillation, rate controlled; venous stasis; hypertension and now recently diagnosed with plasma cell myeloma with osteolytic lesions, on Revlimid and Decadron for the third week. PAST SURGICAL HISTORY: Bone marrow biopsy, has had left knee arthroscopy with meniscectomy, cholecystectomy and left foot surgery. ALLERGIES: None. CURRENT MEDICATIONS: Include Tylenol, Cordarone, Augmentin, Lipitor, Cipro, Lovenox, Pepcid, hydralazine, tamsulosin, valacyclovir. FAMILY HISTORY: Noncontributory. 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 He is from [place] originally and has no family around. PHYSICAL EXAMINATION: VITAL SIGNS: T-max 98.6, blood pressure 150/70, pulse 61, respirations 18, O2 sat 97%. SKIN: Shows the papular skin eruption in the dermatomal distribution of left shoulder that corresponds to, I believe, C7-T1 distribution as well as the chronic skin changes suggestive of venous stasis in lower extremities in the left areas of surgical drainage, in the medial aspect of the left foot and in the medial aspect of the left ankle. The patient has peripheral IV access. No lymphadenopathy. HEENT: Ocular movements are conjugate. Sclerae are white. Pupils are equal and reactive. Conjunctivae are normal. Oral cavity unremarkable. NECK: Supple. No jugular venous distention. LUNGS: With symmetric clear breath sounds. HEART: S1, S2 with regular rate with a soft aortic murmur. ABDOMEN: Soft, not distended or tender. No ascites. No bladder distention. EXTREMITIES: No joint inflammatory activity outside the involved area. Pulses are 1+ in dorsalis pedis. He is able to move extremities with limitations imposed by the patient's edema and inflammatory process of the left leg. NEUROLOGIC: Cognitive function appears to be intact. LABORATORY DATA: White cell count is up to 13.4, hemoglobin 9.1, platelets 205, 000 and 82% neutrophils. Chemistry with a creatinine of 1.09, sodium 134, albumin 2.9. Liver profile normal except for bilirubin of 1.8. Microbiology with Serratia and Enterococcus species with broad susceptibility profile noted. IMAGING: The abdomen and pelvis CT from 07/26/2018 with moderate bilateral pleural effusions, hyperdense lesion in the cortex of the left kidney, some mild bladder mural thickening, mild density of osseous structures. The operative note was reviewed by Dr. Haney and punctate openings seen. Macerated necrotic skin with undermining areas was debrided. The wound was about 4 cm when debridement was completed. ASSESSMENT AND PLAN: Atrial fibrillation with multiple myeloma, recently diagnosed, on Revlimid and Decadron, now with worsening edema, probably secondary to the combination of venous insufficiency plus Decadron, associated volume overload plus/minus Revlimid as well as abscesses in the left leg. Pyoderma gangrenosum is not ruled out. We will have to follow up the lesions into clinical resolution. I believe it is more likely to represent just an infectious complication of the underlying skin disorder rather than pyoderma gangrenosum. I agree with Cipro and Augmentin for a short period of time. Continue wound care. In addition to that, it seems to have a mild outbreak of dermatomal herpes zoster in the left C7-T1 distribution and the dose of Valtrex will have to be upgraded to full treatment dose. After that, then switch to the suppressive dose again after approximately 7 days. The patient is eligible for the new herpes zoster vaccine, which is a subunit vaccine and does not contain a live virus. This should be considered in the outpatient setting. MTDD
[2018-08-02] MEDS: Tamsulosin HCl 0.4 MG CAP PO SCH (17:55)
[2018-08-02] MEDS: Atorvastatin Calcium 20 MG TAB PO SCH (20:56)
[2018-08-02] MEDS: Enoxaparin Sodium 40 MG/0.4 ML SYRINGE SC SCH (20:58)
[2018-08-03] MEDS: Ciprofloxacin 500 MG TAB PO SCH ×2 (05:39→21:01)
[2018-08-03] MEDS: Amoxicillin/Potassium Clav 875 MG TAB PO SCH ×2 (08:05→21:02)
[2018-08-03] MEDS: Amiodarone 200 MG TAB PO SCH (08:05)
[2018-08-03] MEDS: Furosemide 40 MG TAB PO SCH ×2 (08:05→14:47)
[2018-08-03] MEDS: Famotidine 20 MG TAB PO SCH ×2 (08:05→21:03)
[2018-08-03] MEDS: valACYclovir 500 MG TAB PO SCH ×3 (08:05→21:02)
[2018-08-03] MEDS: Potassium Bicarbonate/Cit Ac 25 MEQ TAB PO SCH ×2 (08:06→17:32)
[2018-08-03] MEDS: Senokot S 8.6-50 MG TAB PO SCH ×2 (08:06→21:03)
--- NOTE | 2018-08-03 13:43 | PDOC.PN ---
- Subjective Encounter Start Date: 08/03/18 Encounter Start Time: 08:40 Pt seen for followup re: left foot abscess. Denies any complaints today. - Objective Resuscitation Status: Resuscitation Status FULL:Full Resuscitation MAR Reviewed: Yes Vital Signs & Weight: Vital Signs (12 hours) Temp Pulse Resp BP BP Pulse Ox 08/03/18 08:05 97.8 F 55 L 18 92 L 08/03/18 07:40 97.8 F 55 L 18 135/67 92 L 08/03/18 05:01 97.7 F 59 L 24 H 142/54 H 93 L Weight Admit Weight 245 lb Weight 222 lb I&O: 08/02/18 08/03/18 08/04/18 06:59 06:59 06:59 Intake Total 1180 600 Output Total 200 650 Balance 980 -50 Result Diagrams: 08/04/18 10:11 08/04/18 10:11 Additional Labs: Labs reviewed by me Phys Exam - Physical Examination Constitutional: NAD HEENT: moist MMs Neck: supple Respiratory: no wheezing Cardiovascular: RRR Gastrointestinal: positive bowel sounds Neurological: moves all 4 limbs Psychiatric: normal affect Deviation from normal: L foot dressing. rash over left upper chest wall Dx/Plan (1) Abscess of left foot Code(s): L02.612 - CUTANEOUS ABSCESS OF LEFT FOOT Status: Acute Comment: continue ciprofloxacin and Augmentin (2) HTN (hypertension) Code(s): I10 - ESSENTIAL (PRIMARY) HYPERTENSION Status: Chronic Qualifiers: Hypertension type: essential hypertension Qualified Code(s): I10 - Essential (primary) hypertension Comment: controlled (3) Multiple myeloma Code(s): C90.00 - MULTIPLE MYELOMA NOT HAVING ACHIEVED REMISSION Status: Chronic Qualifiers: Multiple myeloma remission status: not in remission Qualified Code(s): C90.00 - Multiple myeloma not having achieved remission Comment: medical oncology following (4) A-fib Code(s): I48.91 - UNSPECIFIED ATRIAL FIBRILLATION Status: Chronic Comment: resume rivaroxaban (5) UTI (urinary tract infection) Status: Suspected Comment: urine cultures not sent - Plan * . Review of Systems - Review of Systems Respiratory: negative: Cough, Shortness of Breath, SOB with Excertion, Pleuritic Pain, Wheezing Cardiovascular: negative: chest pain, palpitations, orthopnea, paroxysmal nocturnal dyspnea, edema, light headedness - Medications/Allergies Allergies/Adverse Reactions: Allergies Allergy/AdvReac Type Severity Reaction Status Date / Time No Known Allergies Allergy Unverified 07/27/18 00:49 Medications: Current Medications Acetaminophen (Tylenol) 1,000 mg PO Q6H PRN PRN Reason: Headache/Fever or Mild Pain Amiodarone HCl (Cordarone) 200 mg PO DAILY [facility] Last Admin: 08/03/18 08:05 Dose: 200 mg Amoxicillin/Clavulanate Potassium (Augmentin) 875 mg PO Q12HR [facility] Last Admin: 08/03/18 08:05 Dose: 875 mg Atorvastatin Calcium (Lipitor) 20 mg PO HS [facility] Last Admin: 08/02/18 20:56 Dose: 20 mg Ciprofloxacin (Cipro) 500 mg PO 0600,2000 [facility] Last Admin: 08/03/18 05:39 Dose: 500 mg Enoxaparin Sodium (Lovenox) 40 mg SC 2100 [facility] Last Admin: 08/02/18 20:58 Dose: Not Given Famotidine (Pepcid) 20 mg PO BID [facility] Last Admin: 08/03/18 08:05 Dose: 20 mg Furosemide (Lasix) 40 mg PO 0900,1400 [facility] Last Admin: 08/03/18 08:05 Dose: 40 mg Hydralazine HCl (Apresoline) 10 mg SLOW IVP Q4H PRN PRN Reason: Systolic BP > 180 Nystatin (Mycostatin Powder) 0 gm TOP PRN PRN PRN Reason: Topical Irritations Last Admin: 07/28/18 23:52 Dose: 1 applic Ondansetron HCl (Zofran Odt) 4 mg PO Q6H PRN PRN Reason: Nausea/Vomiting Ondansetron HCl (Zofran) 4 mg IVP Q6H PRN PRN Reason: Nausea/Vomiting Potassium Bicarbonate/Citric Acid (K-Vescent) 25 meq PO BID-[facility] Last Admin: 08/03/18 08:06 Dose: 25 meq Senna/Docusate Sodium (Senokot S) 1 tab PO BID [facility] Last Admin: 08/03/18 08:06 Dose: Not Given Sodium Chloride (Flush - Normal Saline) 10 ml IVF Q12HR [facility] Last Admin: 08/03/18 08:06 Dose: Not Given Sodium Chloride (Flush - Normal Saline) 10 ml IVF PRN PRN PRN Reason: Saline Flush Tamsulosin HCl (Flomax) 0.4 mg PO 1830 [facility] Last Admin: 08/02/18 17:55 Dose: 0.4 mg Valacyclovir HCl (Valtrex) 1,000 mg PO TID [facility] Stop: 08/09/18 15:01 Last Admin: 08/03/18 08:05 Dose: 1,000 mg Valacyclovir HCl (Valtrex) 500 mg PO QAM [facility]
[2018-08-03] MEDS: Tamsulosin HCl 0.4 MG CAP PO SCH (17:32)
[2018-08-03] MEDS: Atorvastatin Calcium 20 MG TAB PO SCH (21:01)
[2018-08-03] MEDS: Enoxaparin Sodium 40 MG/0.4 ML SYRINGE SC SCH (21:03)
[2018-08-04] MEDS: Ciprofloxacin 500 MG TAB PO SCH ×2 (06:26→20:17)
[2018-08-04] MEDS: Potassium Bicarbonate/Cit Ac 25 MEQ TAB PO SCH ×3 (08:20→16:32)
[2018-08-04] MEDS: Furosemide 40 MG TAB PO SCH ×2 (08:37→14:22)
[2018-08-04] MEDS: Famotidine 20 MG TAB PO SCH ×2 (08:37→20:17)
[2018-08-04] MEDS: Amiodarone 200 MG TAB PO SCH (08:37)
[2018-08-04] MEDS: Amoxicillin/Potassium Clav 875 MG TAB PO SCH ×2 (08:37→20:17)
[2018-08-04] MEDS: Senokot S 8.6-50 MG TAB PO SCH ×2 (08:38→20:23)
[2018-08-04] MEDS: valACYclovir 500 MG TAB PO SCH ×3 (08:39→20:17)
[2018-08-04 10:36] LABS: Hemoglobin 7.7 g/dL (14.0-18.0); Mean Corpuscular HGB CONC 31.2 g/dL (32.0-36.0); Mean Corpuscular Hemoglobin 30.6 pg (27.0-31.0); Mean Corpuscular Volume 97.9 fL (78.0-98.0); Mean Platelet Volume 9.1 fL (7.4-10.4); Platelet Count 245 thou/uL (130-400); RBC Distribution Width 17.1 % (11.5-14.5); Red Blood Cell (RBC) Count 2.51 mill/uL (4.70-6.10); White Blood Cell (WBC) Count 7.1 thou/uL (4.8-10.8)
[2018-08-04 10:41] LABS: Anion Gap 10 mmol/L (10-20); BUN (Urea Nitrogen) 21 mg/dL (8.4-25.7); Calc. Creatinine Clearance 69 mL/min (70-130); Calcium 8.8 mg/dL (7.8-10.44); Carbon Dioxide 27 mmol/L (23-31); Chloride 104 mmol/L (98-107); Estimated GFR-MDRD 55; Glucose 128 mg/dL (83-110); Potassium 3.4 mmol/L (3.5-5.1); Sodium 138 mmol/L (136-145)
[2018-08-04 10:56] LABS: Band 2 % (5-11); Eosinophils 2 % (0-10); Lymphocytes 9 % (21-51); Monocytes 7 % (0-10); Myelocyte 1 % (0-0); Neutrophil 79 % (42-75)
[2018-08-04 10:57] LABS: Bite Cells SLIGHT = 2-5 cells (100X) (0-1/hpf); Hypochromia SLIGHT = 6-15 cells (100X) (0-5/hpf); MDiff Complete? YES; Ovalocytes SLIGHT = 2-5 cells (100X) (0-1/hpf); Polychromasia SLIGHT = 2-3 cells (100X) (0-2/hpf)
--- NOTE | 2018-08-04 18:15 | PDOC.PN ---
- Subjective Encounter Start Date: 08/04/18 Encounter Start Time: 09:10 Pt seen for followup re: left foot abscess. No complaints today, says he feels better. - Objective Resuscitation Status: Resuscitation Status FULL:Full Resuscitation Vital Signs & Weight: Vital Signs (12 hours) Temp Pulse Resp BP BP Pulse Ox 08/04/18 14:24 169/77 H 08/04/18 08:00 97.9 F 54 L 20 94 L 08/04/18 07:41 97.9 F 54 L 20 145/73 H 94 L Weight Admit Weight 245 lb Weight 220 lb I&O: 08/03/18 08/04/18 08/05/18 06:59 06:59 06:59 Intake Total 600 480 480 Output Total 650 1320 Balance -50 -840 480 Result Diagrams: 08/04/18 10:11 08/04/18 10:11 Phys Exam - Physical Examination Obesity HEENT: moist MMs, sclera anicteric Neck: full ROM Respiratory: clear to auscultation bilateral Cardiovascular: RRR Gastrointestinal: soft Neurological: moves all 4 limbs Psychiatric: normal affect Deviation from normal: left foot dressing Dx/Plan (1) Abscess of left foot Code(s): L02.612 - CUTANEOUS ABSCESS OF LEFT FOOT Status: Acute Comment: on ciprofloxacin and Augmentin (2) HTN (hypertension) Code(s): I10 - ESSENTIAL (PRIMARY) HYPERTENSION Status: Chronic Qualifiers: Hypertension type: essential hypertension Qualified Code(s): I10 - Essential (primary) hypertension Comment: controlled (3) Multiple myeloma Code(s): C90.00 - MULTIPLE MYELOMA NOT HAVING ACHIEVED REMISSION Status: Chronic Qualifiers: Multiple myeloma remission status: not in remission Qualified Code(s): C90.00 - Multiple myeloma not having achieved remission Comment: medical oncology following (4) A-fib Code(s): I48.91 - UNSPECIFIED ATRIAL FIBRILLATION Status: Chronic Comment: pt reports his rivaroxaban 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 Pt awaiting insurance authorization for SNU Review of Systems - Review of Systems Constitutional: negative: fever, chills, sweats, weakness, malaise Cardiovascular: negative: chest pain, palpitations, orthopnea, paroxysmal nocturnal dyspnea, edema, light headedness Gastrointestinal: negative: Nausea, Vomiting, Abdominal Pain, Diarrhea, Constipation, Melena, Hematochezia - Medications/Allergies Allergies/Adverse Reactions: Allergies Allergy/AdvReac Type Severity Reaction Status Date / Time No Known Allergies Allergy Unverified 07/27/18 00:49 Medications: Current Medications Acetaminophen (Tylenol) 1,000 mg PO Q6H PRN PRN Reason: Headache/Fever or Mild Pain Amiodarone HCl (Cordarone) 200 mg PO DAILY [facility] Last Admin: 08/04/18 08:37 Dose: 200 mg Amoxicillin/Clavulanate Potassium (Augmentin) 875 mg PO Q12HR [facility] Last Admin: 08/04/18 08:37 Dose: 875 mg Atorvastatin Calcium (Lipitor) 20 mg PO HS [facility] Last Admin: 08/03/18 21:01 Dose: 20 mg Ciprofloxacin (Cipro) 500 mg PO 0600,2000 [facility] Last Admin: 08/04/18 06:26 Dose: 500 mg Enoxaparin Sodium (Lovenox) 40 mg SC 2100 [facility] Last Admin: 08/03/18 21:03 Dose: 40 mg Famotidine (Pepcid) 20 mg PO BID [facility] Last Admin: 08/04/18 08:37 Dose: 20 mg Furosemide (Lasix) 40 mg PO 0900,1400 [facility] Last Admin: 08/04/18 14:22 Dose: 40 mg Hydralazine HCl (Apresoline) 10 mg SLOW IVP Q4H PRN PRN Reason: Systolic BP > 180 Nystatin (Mycostatin Powder) 0 gm TOP PRN PRN PRN Reason: Topical Irritations Last Admin: 07/28/18 23:52 Dose: 1 applic Ondansetron HCl (Zofran Odt) 4 mg PO Q6H PRN PRN Reason: Nausea/Vomiting Ondansetron HCl (Zofran) 4 mg IVP Q6H PRN PRN Reason: Nausea/Vomiting Potassium Bicarbonate/Citric Acid (K-Vescent) 25 meq PO BID-[facility] Last Admin: 08/04/18 16:32 Dose: Not Given Senna/Docusate Sodium (Senokot S) 1 tab PO BID [facility] Last Admin: 08/04/18 08:38 Dose: Not Given Sodium Chloride (Flush - Normal Saline) 10 ml IVF Q12HR [facility] Last Admin: 08/04/18 08:38 Dose: Not Given Sodium Chloride (Flush - Normal Saline) 10 ml IVF PRN PRN PRN Reason: Saline Flush Tamsulosin HCl (Flomax) 0.4 mg PO 1830 [facility] Last Admin: 08/03/18 17:32 Dose: 0.4 mg Valacyclovir HCl (Valtrex) 1,000 mg PO TID [facility] Stop: 08/09/18 15:01 Last Admin: 08/04/18 14:22 Dose: 1,000 mg Valacyclovir HCl (Valtrex) 500 mg PO QAM [facility]
[2018-08-04] MEDS: Tamsulosin HCl 0.4 MG CAP PO SCH (18:37)
[2018-08-04] MEDS: Atorvastatin Calcium 20 MG TAB PO SCH (20:16)
[2018-08-04] MEDS: Enoxaparin Sodium 40 MG/0.4 ML SYRINGE SC SCH (20:17)
[2018-08-05 05:14] LABS: Anion Gap 13 mmol/L (10-20); BUN (Urea Nitrogen) 23 mg/dL (8.4-25.7); Calc. Creatinine Clearance 77 mL/min (70-130); Calcium 9.2 mg/dL (7.8-10.44); Carbon Dioxide 27 mmol/L (23-31); Chloride 104 mmol/L (98-107); Estimated GFR-MDRD 62; Glucose 118 mg/dL (83-110); Potassium 3.5 mmol/L (3.5-5.1); Sodium 140 mmol/L (136-145)
[2018-08-05 05:43] LABS: Band 6 % (5-11); Hemoglobin 7.8 g/dL (14.0-18.0); Lymphocytes 6 % (21-51); MDiff Complete? YES; Mean Corpuscular HGB CONC 32.1 g/dL (32.0-36.0); Mean Corpuscular Hemoglobin 31.2 pg (27.0-31.0); Mean Corpuscular Volume 97.3 fL (78.0-98.0); Mean Platelet Volume 9.6 fL (7.4-10.4); Monocytes 12 % (0-10); Neutrophil 76 % (42-75); Platelet Count 293 thou/uL (130-400); RBC Distribution Width 17.1 % (11.5-14.5); Red Blood Cell (RBC) Count 2.49 mill/uL (4.70-6.10); White Blood Cell (WBC) Count 7.3 thou/uL (4.8-10.8)
[2018-08-05] MEDS: Ciprofloxacin 500 MG TAB PO SCH ×2 (06:16→21:05)
[2018-08-05] MEDS: Amoxicillin/Potassium Clav 875 MG TAB PO SCH ×2 (08:29→21:05)
[2018-08-05] MEDS: Furosemide 40 MG TAB PO SCH ×2 (08:30→14:47)
[2018-08-05] MEDS: Amiodarone 200 MG TAB PO SCH (08:30)
[2018-08-05] MEDS: valACYclovir 500 MG TAB PO SCH ×3 (08:31→21:04)
[2018-08-05] MEDS: Famotidine 20 MG TAB PO SCH ×2 (08:32→21:05)
[2018-08-05] MEDS: Senokot S 8.6-50 MG TAB PO SCH ×2 (08:34→21:05)
[2018-08-05] MEDS: Potassium Bicarbonate/Cit Ac 25 MEQ TAB PO SCH ×2 (08:38→16:43)
--- NOTE | 2018-08-05 13:54 | PDOC.PN ---
- Subjective Encounter Start Date: 08/05/18 Encounter Start Time: 11:00 Pt seen for followup re: left foot abscess. feels better. No complaints. - Objective Resuscitation Status: Resuscitation Status FULL:Full Resuscitation MAR Reviewed: Yes Vital Signs & Weight: Vital Signs (12 hours) Temp Pulse Resp BP Pulse Ox 08/05/18 08:00 97.4 F L 54 L 16 93 L 08/05/18 07:52 97.4 F L 54 L 16 131/59 L 93 L Weight Admit Weight 245 lb Weight 225 lb 3 oz I&O: 08/04/18 08/05/18 08/06/18 06:59 06:59 06:59 Intake Total 480 480 120 Output Total 1320 400 Balance -840 80 120 Result Diagrams: 08/05/18 03:59 08/05/18 03:59 Additional Labs: Labs reviewed by me Phys Exam - Physical Examination Constitutional: NAD HEENT: moist MMs Neck: supple Respiratory: clear to auscultation bilateral Cardiovascular: RRR Gastrointestinal: soft Neurological: moves all 4 limbs Psychiatric: normal affect Dx/Plan (1) Abscess of left foot Code(s): L02.612 - CUTANEOUS ABSCESS OF LEFT FOOT Status: Acute Comment: will continue ciprofloxacin and Augmentin (2) HTN (hypertension) Code(s): I10 - ESSENTIAL (PRIMARY) HYPERTENSION Status: Chronic Qualifiers: Hypertension type: essential hypertension Qualified Code(s): I10 - Essential (primary) hypertension Comment: controlled (3) Multiple myeloma Code(s): C90.00 - MULTIPLE MYELOMA NOT HAVING ACHIEVED REMISSION Status: Chronic Qualifiers: Multiple myeloma remission status: not in remission Qualified Code(s): C90.00 - Multiple myeloma not having achieved remission Comment: medical oncology following (4) A-fib Code(s): I48.91 - UNSPECIFIED ATRIAL FIBRILLATION Status: Chronic Comment: stable (5) UTI (urinary tract infection) Status: Suspected - Plan * . Review of Systems - Review of Systems Cardiovascular: negative: chest pain, palpitations, orthopnea, paroxysmal nocturnal dyspnea, edema, light headedness Gastrointestinal: negative: Nausea, Vomiting, Abdominal Pain, Diarrhea, Constipation, Melena, Hematochezia - Medications/Allergies Allergies/Adverse Reactions: Allergies Allergy/AdvReac Type Severity Reaction Status Date / Time No Known Allergies Allergy Unverified 07/27/18 00:49 Medications: Current Medications Acetaminophen (Tylenol) 1,000 mg PO Q6H PRN PRN Reason: Headache/Fever or Mild Pain Amiodarone HCl (Cordarone) 200 mg PO DAILY [facility] Last Admin: 08/05/18 08:30 Dose: 200 mg Amoxicillin/Clavulanate Potassium (Augmentin) 875 mg PO Q12HR [facility] Last Admin: 08/05/18 08:29 Dose: 875 mg Atorvastatin Calcium (Lipitor) 20 mg PO HS [facility] Last Admin: 08/04/18 20:16 Dose: 20 mg Ciprofloxacin (Cipro) 500 mg PO 0600,2000 [facility] Last Admin: 08/05/18 06:16 Dose: 500 mg Enoxaparin Sodium (Lovenox) 40 mg SC 2100 [facility] Last Admin: 08/04/18 20:17 Dose: 40 mg Famotidine (Pepcid) 20 mg PO BID [facility] Last Admin: 08/05/18 08:32 Dose: 20 mg Furosemide (Lasix) 40 mg PO 0900,1400 [facility] Last Admin: 08/05/18 08:30 Dose: 40 mg Hydralazine HCl (Apresoline) 10 mg SLOW IVP Q4H PRN PRN Reason: Systolic BP > 180 Nystatin (Mycostatin Powder) 0 gm TOP PRN PRN PRN Reason: Topical Irritations Last Admin: 07/28/18 23:52 Dose: 1 applic Ondansetron HCl (Zofran Odt) 4 mg PO Q6H PRN PRN Reason: Nausea/Vomiting Ondansetron HCl (Zofran) 4 mg IVP Q6H PRN PRN Reason: Nausea/Vomiting Potassium Bicarbonate/Citric Acid (K-Vescent) 25 meq PO BID-[facility] Last Admin: 08/05/18 08:38 Dose: Not Given Senna/Docusate Sodium (Senokot S) 1 tab PO BID [facility] Last Admin: 08/05/18 08:34 Dose: Not Given Sodium Chloride (Flush - Normal Saline) 10 ml IVF Q12HR [facility] Last Admin: 08/05/18 08:32 Dose: 10 ml Sodium Chloride (Flush - Normal Saline) 10 ml IVF PRN PRN PRN Reason: Saline Flush Tamsulosin HCl (Flomax) 0.4 mg PO 1830 [facility] Last Admin: 08/04/18 18:37 Dose: 0.4 mg Valacyclovir HCl (Valtrex) 1,000 mg PO TID [facility] Stop: 08/09/18 15:01 Last Admin: 08/05/18 08:31 Dose: 1,000 mg Valacyclovir HCl (Valtrex) 500 mg PO QAM [facility]
[2018-08-05] MEDS: Tamsulosin HCl 0.4 MG CAP PO SCH (17:57)
[2018-08-05] MEDS: Enoxaparin Sodium 40 MG/0.4 ML SYRINGE SC SCH (21:05)
[2018-08-05] MEDS: Atorvastatin Calcium 20 MG TAB PO SCH (21:05)
--- NOTE | 2018-08-06 02:14 | DIS ---
DATE OF ADMISSION: 07/23/2018 DATE OF DISCHARGE: 08/05/2018 PRIMARY CARE PROVIDER: Sukh Michel D.O. DISCHARGE DIAGNOSES: 1. Left foot abscesses. 2. Nonhealing wounds of left foot. 3. Anasarca. 4. Chronic venous stasis with lymphedema. 5. Urinary retention. 6. History of multiple myeloma. 7. Shingles. CONDITION OF PATIENT ON THE DAY OF DISCHARGE: Stable. I assessed Mr. Gastelum on the day of discharge . Please refer to my daily progress note for further details. CONSULTATIONS DURING THIS HOSPITALIZATION: Urology, Vinnie Collins M.D.; Oncology, Jhoana Hanley, APR N; General Surgery, Andrei Haney M.D.; Cardiology, Jones La M.D. and Infectious Diseases, Sukh Gallo M.D. DISCHARGE MEDICATIONS: Amiodarone 200 mg daily, atorvastatin 20 mg at bedtime, amoxicillin/potassium clavulanate 875/125 mg 2 times a day for 10 more days, ciprofloxacin 500 mg 2 times a day for 10 mor e days, Flomax 0.4 mg daily, valacyclovir 1000 mg 3 times a day until 08/09/2018, followed by 500 mg daily, furosemide 40 mg daily. HOSPITAL COURSE: Mr. Gastelum is a pleasant 77-year-old gentleman who was admitted to [facility] on 07/23/2018 for anasarca, chronic venous stasis with lymphedema, urinary retentio n and suspected urinary tract infection. Please refer to Dr. Serrato's history and physical note dated 07/23/2018 for further details. He also had urinary retention and was started on Flomax by Urology Service. He was found to have lef t foot abscesses and nonhealing wounds. On 07/28/2018, he underwent debridement by General Surgery Oz alonzo. He had stopped his chemotherapy prior to this admission. He is advised to follow up with Medical Onc ology in 7-10 days to discuss resumption of chemotherapy. He had CT scan of the abdomen and pelvis on 07/26/2018, which showed moderate sized bilateral pleural effusions, 2 cm hyperdense lesion in the lateral cortex of the left kidney seen on noncontrast study , no significant enhancement within this lesion. The radiologist suggested ultrasound evaluation to assess sonographic characteristics of this lesion. This can be done as outpatient by his primary car e provider's office. He also had tiny low density foci in the right kidney, which are too small to a dequately characterize. He had abnormal moderate density to osseous structures with numerous low den sity foci. He was treated with intravenous antibiotics, subsequently stepped down to oral antibiotics. He stacie nued to improve clinically, but was physically deconditioned. He was also seen by Infectious Disease Service and was diagnosed with herpes zoster. His valacyclovir dose was increased to treatment dose for 1 week, subsequently changing to preventive dose. Infectious Disease service also recommends th at he is eligible for the new herpes zoster vaccine, which is a subunit vaccine and does not contain a live virus. This can be considered in the outpatient setting through his primary care provider's o ffice. On the day of discharge, he has white count 7300, hemoglobin 7.8, platelet count 293,000, normal elec trolytes and normal creatinine. Ankle abscess cultures grew Serratia marcescens, Enterococcus ceci iflavus and Enterococcus species. Serratia marcescens was resistant to cefoxitin, but sensitive to o ther antibiotics. Enterococcus casseliflavus was resistant to vancomycin, intermediate sensitivity t o erythromycin and sensitive to other antibiotics. The third organism was pansensitive. Foot wound cultures grew Serratia marcescens and Enterococcus species. He was evaluated by therapy services. He is being discharged to [facility] unit for fu rther management. Many thanks for allowing me to participate in your patient's care. Please feel free to contact me wi th any questions or concerns. DISCHARGE DESTINATION: [facility] facility. TOTAL AMOUNT OF TIME SPENT COORDINATING THIS DISCHARGE: 32 minutes.
[2018-08-06] MEDS: Ciprofloxacin 500 MG TAB PO SCH (04:59)
[2018-08-06] MEDS: Potassium Bicarbonate/Cit Ac 25 MEQ TAB PO SCH ×2 (07:58→17:50)
[2018-08-06] MEDS: Famotidine 20 MG TAB PO SCH (09:13)
[2018-08-06] MEDS: Furosemide 40 MG TAB PO SCH ×2 (09:13→14:53)
[2018-08-06] MEDS: Senokot S 8.6-50 MG TAB PO SCH (09:13)
[2018-08-06] MEDS: Amiodarone 200 MG TAB PO SCH (09:13)
[2018-08-06] MEDS: Amoxicillin/Potassium Clav 875 MG TAB PO SCH (09:13)
[2018-08-06] MEDS: valACYclovir 500 MG TAB PO SCH ×3 (10:18→14:56)
[2018-08-06 13:28] VITALS: BMI 31.4
[2018-08-06 16:27] VITALS: BP 160/81; TEMP 98
[2018-08-10] MEDS ORDERED: valACYclovir 500 MG TAB PO SCH (09:00)
== END 2018-08-06 18:01 | disposition home or self-care (01) | DRG 571 ==
LOC: ERS 15:25 → 2NO 20:21 → T4-A 08-02 10:25
PROVIDERS: ADMIT Family Medicine; ATTEND Family Medicine
PROC: 0JBR0ZZ Excision of Left Foot Subcutaneous Tissue and Fascia, Open Approach (ICD-10-PCS; principal; 2018-07-27)
DX: L02.612 Cutaneous abscess of left foot (principal); C90.00 Multiple myeloma not having achieved remission; J90 Pleural effusion, not elsewhere classified; N39.0 Urinary tract infection, site not specified; I42.9 Cardiomyopathy, unspecified; I87.8 Other specified disorders of veins; R60.1 Generalized edema; R33.9 Retention of urine, unspecified; B02.9 Zoster without complications; B95.2 Enterococcus as the cause of diseases classified elsewhere; I10 Essential (primary) hypertension; R31.0 Gross hematuria; E78.5 Hyperlipidemia, unspecified; I89.0 Lymphedema, not elsewhere classified; D64.9 Anemia, unspecified; I48.0 Paroxysmal atrial fibrillation; K21.9 Gastro-esophageal reflux disease without esophagitis; D69.59 Other secondary thrombocytopenia; T45.1X5A Adverse effect of antineoplastic and immunosuppressive drugs, initial encounter; I07.1 Rheumatic tricuspid insufficiency
CPT/HCPCS: 36415; 51701; 71045; 74178; 80048; 80053; 80202; 81003; 81015; 82550; 82553; 83880; 84484; 85007; 85025; 85027; 87040; 87070; 87077; 87186; 87205; 93005; 96374; A4216; G8978-GP-CM; G8979-GP-CI; G8987-GO-CK; G8988-GO-CI; J0670; J0696; J1650; J1940; J2250; J2704; J3010; J3370; J7050